=== PATIENT | female | born 1975 | race Caucasian/White ===

== ENCOUNTER 2017-07-20 09:35 | Inpatient (IN) | payer OTHER ==
[~2017-07-20] VITALS: Ht 157.5 cm; Wt 90.4 kg
[2017-07-20] VITALS (13 sets, daily range): BP systolic 95–170; BP diastolic 62–86; PULSE 78–150
[~2017-07-20 09:35] MED LIST: ADENOSINE 6 MG INJ ONE; ATROPINE 1 MG/10 ML SYRINGE ONE; CA CHLORIDE 10% 10 ML SYRINGE ONE; EPINEPHrine 0.1 MG/ML SYG ONE; NA BICARBONATE 8.4% 50 ML SYG ONE
[2017-07-20] MEDS ORDERED: NITROGLYCERIN 2% 1 GM OINT PKT TD STA (09:41)
[2017-07-20] MEDS ORDERED: FUROSEMIDE 40 MG INJ IV STA (09:41)
[2017-07-20 10:34] LABS: ABNORMAL IP MESSAGE 1; HEMATOCRIT 22.9 % (37.0-47.0); HEMOGLOBIN 7.3 g/dl (12.0-16.0); MEAN CORPUSCULAR HEMOGLOBIN 31.7 pg (29.0-33.0); MEAN CORPUSCULAR HGB CONC 31.9 g/dl (32.0-37.0); MEAN CORPUSCULAR VOLUME 99.6 fl (82.0-101.0); MEAN PLATELET VOLUME 9.4 fl (7.4-10.4); NUCLEATED RED BLOOD CELLS% 0.9 /100WBC (0.0-0.0); PLATELET COUNT 284 10^3/UL (140-415); POSITIVE DIFF @See below; RED CELL DISTRIBUTION WIDTH 16.8 % (11.5-14.5); WHITE BLOOD COUNT 11.9 10^3/ul (4.8-10.8)
--- NOTE | 2017-07-20 10:36 | RADRPT ---
PROCEDURE: XR Chest. CLINICAL INDICATION: Chest pain TECHNIQUE: Single frontal view of the chest was obtained COMPARISON: None FINDINGS: No pleural effusion or pneumothorax. No consolidation. Enlarged cardiomediastinal silhouette. Mild interstitial pulmonary edema. No acute osseous abnormality. IMPRESSION: Global cardiomegaly with mild interstitial pulmonary edema. Superimposed infection to be determined clinically. RPTAT: EE Physician Daja Date Time Electronically viewed and signed by Jim Louis Physician on 07/20/2017 10:35 /
[2017-07-20 10:50] LABS: INR 1.73; PROTIME 20.6 Sec (11.9-14.9); PT RATIO 1.6
[2017-07-20 10:51] LABS: PARTIAL THROMBOPLASTIN TIME 36.2 Sec (25.0-35.0)
[2017-07-20 10:52] LABS: CALCIUM 7.1 mg/dl (8.4-10.2); CHLORIDE 101 mmol/L (97-110); SODIUM 132 mmol/L (135-144)
[2017-07-20 11:03] LABS: ANION GAP 32 (8-16); BLOOD UREA NITROGEN 126 mg/dl (7-20)
[2017-07-20 11:04] LABS: TROPONIN-I 0.093 ng/ml (0.00-0.12)
[2017-07-20 11:06] LABS: CARBON DIOXIDE < 5 mmol/L (21-31); CREATININE 14.35 mg/dl (0.44-1.00); GLUCOSE 42 mg/dl (70-220); POTASSIUM 6.2 mmol/L (3.5-5.1)
[2017-07-20] MEDS ORDERED: DEXTROSE 50% 50 ML SYRINGE ONE (11:14)
[2017-07-20] MEDS ORDERED: ROCURONIUM 50 MG INJ IV STA (11:21)
[2017-07-20] MEDS ORDERED: PROPOFOL 100 ML IV STA (11:21)
[2017-07-20] MEDS ORDERED: NA BICARBONATE 8.4% 50 ML SYG IV STA (11:21)
[2017-07-20] MEDS ORDERED: ETOMIDATE 20 MG INJ IV STA (11:21)
[2017-07-20] MEDS ORDERED: CEFEPIME 2GM/50 ML (PMX) 50 ML IVPB STA (11:21)
[2017-07-20] MEDS ORDERED: DEXTROSE 50% 50 ML SYRINGE IV ONE (11:30)
[2017-07-20] MEDS ORDERED: CALCIUM GLUCONATE 10% 1 GM in SOD CHLORIDE 0.9% 100 ML IVPB ONE (11:30)
[2017-07-20] MEDS ORDERED: SODIUM BICARBONATE (IV ADD) 150 MEQ in DEXTROSE 5% 1,000 ML IV SCH (11:30)
[2017-07-20] MEDS ORDERED: VANCOMYCIN 1 GM (PMX) 250 ML IVPB ONE (11:30)
[2017-07-20 11:31] LABS: Allen Test ACCEPTAB; Arterial Base Excess -32.8 mmol/L (-3.0-3); Arterial COHb 0.6 % (0.0-3.0); Arterial Fraction of Oxyhgb 98.2 % (93.0-99.0); Arterial HCO3 1.8 mmol/L (22.0-26.0); Arterial MetHb 0.2 % (0.0-1.5); Arterial Total Hemglobin 7.8 g/dl (12.0-18.0); Blood Gas IEPAP 15/5; MODE MASK - BIPAP
[2017-07-20] MEDS ORDERED: SOD CHLORIDE 0.9% 1,000 ML IV SCH ×2 (11:35→15:51)
[2017-07-20] MEDS ORDERED: NORepinephrine 8MG/250 ML (PMX 250 ML IV STA (11:46)
[2017-07-20] MEDS ORDERED: SOD CHLORIDE 0.9% 1,000 ML IV STA (11:46)
--- NOTE | 2017-07-20 11:49 | RADRPT ---
PROCEDURE: XR Chest. CLINICAL INDICATION: Status post intubation TECHNIQUE: A single AP view of the chest was obtained. COMPARISON: None available FINDINGS: There has been interval intubation. The endotracheal tube tip is at the jerry. Lung volumes are low with compressive changes and crowding of the central pulmonary vascular marking s. No focal airspace opacity, pleural effusion or pneumothorax is seen. The cardiomediastinal silho uette is within normal limits for size. The osseous structures are unremarkable. IMPRESSION: 1. Interval intubation with endotracheal tube tip at the jerry. Retraction by 2 cm is recommended. 2. Low lung volumes with compressive changes. RPTAT: HH .Lakisha Marquez MD, MD Date Time Electronically viewed and signed by .Lakisha Marquez MD, on 07/20/2017 11:48 .G/
[2017-07-20 11:59] LABS: ANISOCYTOSIS 1+ (0-0); BURR CELLS 1+ (0-0); EOSINOPHILS % (M) 8 % (0-7); ERYTHROBLAST% (NRBC) (M) 1 % (0-0); METAMYELOCYTES %M 2 % (0-0); MONOCYTES % (M) 1 % (0-11); MYELOCYTES % (M) 2 % (0-0); PLATELET ESTIMATE NORMAL; POIKILOCYTOSIS 3+ (0-0); POLYCHROMASIA 3+ (0-0)
[2017-07-20] MEDS ORDERED: BISACODYL (EC) 5 MG TAB PO PRN (12:00)
[2017-07-20] MEDS ORDERED: ONDANSETRON 4 MG INJ IV PRN ×2 (12:00→16:00)
[2017-07-20] MEDS ORDERED: DOCUSATE SODIUM 100 MG CAP PO PRN ×2 (12:00→16:00)
[2017-07-20] MEDS ORDERED: MAGNESIUM HYDROXIDE 30ML CUP PO PRN ×2 (12:00→16:00)
[2017-07-20] MEDS ORDERED: ACETAMINOPHEN 650MG/20.3ML CUP PO PRN (12:00)
[2017-07-20] MEDS ORDERED: ACETAMINOPHEN 325 MG TAB PO PRN ×2 (12:00→16:00)
[2017-07-20 12:14] LABS: Arterial COHb 0.8 % (0.0-3.0); Arterial Fraction of Oxyhgb 90.4 % (93.0-99.0); Arterial HCO3 2.7 mmol/L (22.0-26.0); Arterial MetHb 0.2 % (0.0-1.5); Arterial Total Hemglobin 7.6 g/dl (12.0-18.0); MODE VENT - AC
[2017-07-20 12:27] LABS: B-TYPE NATRIURETIC PEPTIDE 50500 PG/ML (0-125)
--- NOTE | 2017-07-20 12:32 | OPR ---
DATE OF OPERATION: PREOPERATIVE DIAGNOSIS: Renal failure. POSTOPERATIVE DIAGNOSIS: Renal failure. PROCEDURE: Right femoral hemodialysis catheter placement. SURGEON: Ajit Bhandari MD ANESTHESIA: Local. CONSENT: Risks, benefits, complications, alternative therapies explained to the patient and the [facility] patricia, consent obtained. OPERATIVE TECHNIQUE: The patient was placed in supine position, prepped and draped in usual sterile fashion, 1% lidocaine was used throughout the operation for local anesthesia. Access was gained in the right common femoral vein. Guidewire was advanced through without any difficulty. Subcutaneou s tissues dilated. A 20 cm dialysis catheter advanced over guidewire, secured to skin using silk saldivar tures. All ports of the catheter were aspirated and injected using saline solution. Patient tolera tootie procedure well. Dictated By: AJIT TOMPKINS/JOSE DE JESUS Conf#: [id number] DID#: [id number]
[2017-07-20 12:49] LABS: BLOOD UREA NITROGEN 120 mg/dl (7-20); CALCIUM 6.7 mg/dl (8.4-10.2); CHLORIDE 102 mmol/L (97-110); GLUCOSE 136 mg/dl (70-220); SODIUM 134 mmol/L (135-144)
[2017-07-20 12:54] LABS: ANION GAP 33 (8-16)
[2017-07-20 12:56] LABS: CARBON DIOXIDE < 5 mmol/L (21-31); CREATININE 13.91 mg/dl (0.44-1.00)
[2017-07-20] MEDS ORDERED: IPRATROPIUM (NEB) 0.5 MG/2.5 ML AMP NEB SCH (13:00)
--- NOTE | 2017-07-20 13:02 | RADRPT ---
PROCEDURE: XR Chest. CLINICAL INDICATION: Central line placement TECHNIQUE: A single AP view of the chest was obtained. COMPARISON: CHEST 07/20/2017; DR CHEST 07/20/2017 FINDINGS: The endotracheal tube tip remains at the jerry. There has been interval placement of a left interna l jugular central venous catheter with tip in the mid SVC. Lung volumes are low. No focal airspace opacification, pleural effusion or pneumothorax is seen. Th e cardiomediastinal silhouette is within normal limits for size. The osseous structures are unremar kable. IMPRESSION: 1. Endotracheal tube tip at the jerry. Retraction by 2 cm is recommended. 2. Left internal jugular central venous catheter with tip in the mid SVC. RPTAT: HH .Lakisha Marquez MD, Date Time Electronically viewed and signed by .Lakisha Marquez MD, MD on 07/20/2017 13:02 .G/
[2017-07-20 13:28] LABS: AADO2 Arterial 135.8 mmHg (7.0-24.0); Allen Test ACCEPTAB; Arterial Base Excess -34.2 mmol/L (-3.0-3); Arterial COHb 0.3 % (0.0-3.0); Arterial Fraction of Oxyhgb 99.1 % (93.0-99.0); Arterial HCO3 1.7 mmol/L (22.0-26.0); Arterial MetHb 0.2 % (0.0-1.5); MODE VENT - AC
--- NOTE | 2017-07-20 13:55 | RADRPT ---
PROCEDURE: CT ABDOMEN AND PELVIS WITHOUT CONTRAST. CLINICAL INDICATION: Possible sepsis. Abdominal pain TECHNIQUE: CT scan of the abdomen and pelvis without contrast was performed on a multidetector hig h-resolution CT scanner. The patient was scanned without intravenous contrast. Coronal and sagittal reformatted images were obtained from the axial source images. Images were reviewed on a high-resol In[employer]asc[employer] PACS workstation. The total exam CTDI equals 21.5 mGy and the total exam DLP equals 1294 mGy-c m. One or more of the following dose reduction techniques were used: Automated exposure control. Adjustment of the mA and/or kV according to patient size. Use of iterative reconstruction technique. DICOM images are available COMPARISON: None FINDINGS: CT abdomen: Bilateral lower lobe air space disease is noted. The heart size is enlarged. No significant pericard ial effusion Hepatic morphology is within normal limits. There is perihepatic fluid. Gallbladder is identified, c ontaining hyperdense material. The spleen is identified, with perisplenic fluid. The pancreas is within normal limits. Both adrenal glands are within normal limits. Both kidneys are in normal anatomic position. No gross renal/ureteric calculi. No evidence of obstru ction or hydronephrosis. The visualized GI tract demonstrate normal caliber loops of small and large bowel. No evidence of obinna wel obstruction. There is thickening of the kessler of the distal stomach and proximal duodenum. There is also thickening of the kessler of the right colon. The unenhanced aorta is unremarkable. There is no significant retroperitoneal lymphadenopathy. There is generalized anasarca. CT pelvis: The bladder is collapsed, containing a Brown catheter. Free fluid is noted within the lower abdomen. The rectosigmoid colon is within limits. Uterus is enlarged and lobulated, containing exophytic mary cified masses. The largest, measures 5.7 x 5.1 cm. The visualized osseous structures appears to within normal limits. IMPRESSION: 1. Bilateral lower lobe air space disease, concerning for pneumonia in the appropriate clinical sett ing. Cardiomegaly. 2. Mild intra-abdominal ascites and generalized anasarca. 3. Thickening of the kessler of the distal stomach and duodenum, concerning for focal enteritis. There is also mild thickening of the kessler of the right colon, concerning for focal colitis. Recommend fo llow-up CT scan with IV and oral contrast. 4. Enlarged uterus, containing exophytic calcified masses, with the largest measuring 5.7 x 5.1 cm. Findings are likely consistent with consistent with a leiomyomatous uterus. 5. Gallbladder, containing hyperdense material, which may represent sludge or stones. Recommend barry elation with ultrasound. 7. No definitive focal fluid collection or free air noted at this time. RPTAT: AAPP Physician Kylah Date Time Electronically viewed and signed by Mariia Forte Physician on 07/20/2017 13:55 LOGAN/
[2017-07-20] MEDS ORDERED: ADENOSINE 4 ML ONE (14:11)
[2017-07-20] MEDS ORDERED: ADENOSINE 6 MG INJ IV ONE (14:30)
[2017-07-20] MEDS ORDERED: ADENOSINE 3 MG/ML SYRINGE IV ONE (14:30)
--- NOTE | 2017-07-20 15:31 | ERD ---
ER Documentation Chief Complaint Chief Complaint sent from home for sob , o2 sat is 97% on RA HPI This is a 41-year-old female who presents from home via EMS. Initially upon arrival the patient describes shortness of breath for at least 2 weeks. She describes worsening shortness of breath over the past 24-48 hours. She describes a history of diabetes but no other past medical history. She denies any drugs or alcohol. No chest pain, no pleuritic pain. She does note the shortness of breath is worse when laying flat. Patient is a very limited historian and no further information is available. ROS All systems reviewed and are negative except as per history of present illness. Allergies Allergies: Coded Allergies: No Known Allergy (Unverified , 07/20/17) PMhx/Soc History of Surgery: Yes (right great toe ambutation ) Hx Miscellaneous Medical Probl: Yes (dm) Hx Alcohol Use: No Hx Substance Use: No Hx Tobacco Use: No Smoking Status: Never smoker FmHx Family History: diabetes Physical Exam Vitals Vital Signs Date Time Temp Pulse Resp B/P Pulse Ox O2 Delivery O2 Flow Rate FiO2 07/20/17 14:00 102 30 165/87 100 BIPAP 07/20/17 13:56 107 30 166/86 100 BIPAP 07/20/17 13:50 150 35 109/87 100 BIPAP 07/20/17 13:47 133 30 121/64 100 BIPAP 07/20/17 13:30 115 16 90/59 100 BIPAP 07/20/17 13:15 76 30 103/82 100 BIPAP 07/20/17 13:00 83 30 127/62 100 BIPAP 07/20/17 12:17 87 30 100 100 07/20/17 12:00 86 25 111/67 100 BIPAP 07/20/17 11:45 79 22 82/60 100 BIPAP 07/20/17 11:30 105 24 80/58 100 BIPAP 07/20/17 10:40 86 23 104/74 100 BIPAP 07/20/17 10:15 Simple Mask 07/20/17 10:14 82 21 161/111 100 BIPAP 07/20/17 10:13 98.6 82 21 149/101 100 07/20/17 10:04 84 100 40 Physical Exam General: Well developed, well nourished, increased work of breathing Head: Normocephalic, atraumatic. Eyes: Pupils equally reactive, EOM intact ENT: Moist mucous membranes Neck: Supple, no lymphadenopathy Respiratory: Increased work of breathing with respiratory distress, rales at the bases bilaterally Cardiovascular: Slight tachycardia, no murmurs, rubs, or gallops Abdominal: Soft, non-tender, non-distended, no peritoneal signs : Deferred MSK: Chronic venous stasis dermatitis with evidence of bilateral lower extremity pitting edema Neurologic: Alert and oriented, moving all extremities, normal speech, no focal weakness, no cerebellar signs Skin: No rash Psych: Normal mood Result Diagram: 07/20/17 1005 07/20/17 1220 Results 24 hrs Laboratory Tests Test 07/20/17 10:05 07/20/17 11:06 07/20/17 11:20 07/20/17 11:21 White Blood Count 11.910^3/ul Red Blood Count 2.3010^6/ul Hemoglobin 7.3g/dl Hematocrit 22.9% Mean Corpuscular Volume 99.6fl Mean Corpuscular Hemoglobin 31.7pg Mean Corpuscular Hemoglobin Concent 31.9g/dl Red Cell Distribution Width 16.8% Platelet Count 75231^3/UL Mean Platelet Volume 9.4fl Neutrophils % % Segmented Neutrophils % (Manual) 74% Band Neutrophils % (Manual) 7% Lymphocytes % % Lymphocytes % (Manual) 6% Monocytes % % Monocytes % (Manual) 1% Eosinophils % % Eosinophils % (Manual) 8% Basophils % % Metamyelocytes % (manual) 2% Myelocytes % (Manual) 2% Nucleated Red Blood Cells % 1% Neutrophils # 10^3/ul Neutrophils # (Manual) 8.910^3/ul Band Neutrophils # 0.810^3/ul Absolute Lymphocytes (Manual) 0.710^3/ul Lymphocytes # 10^3/ul Monocytes # 10^3/ul Absolute Monocytes (Manual) 0.110^3/ul Eosinophils # 10^3/ul Basophils # 10^3/ul Metamyelocytes # 0.210^3/ul Myelocytes # 0.210^3/ul Nucleated Red Blood Cells # 10^3/ul Platelet Estimate NORMAL Polychromasia 3+ Poikilocytosis 3+ Anisocytosis 1+ Macrocytosis 1+ Prothrombin Time 20.6Sec Prothrombin Time Ratio 1.6 INR International Normalized Ratio 1.73 Activated Partial Thromboplast Time 36.2Sec Sodium Level 132mmol/L Potassium Level 6.2mmol/L Chloride Level 101mmol/L Carbon Dioxide Level < 5mmol/L Anion Gap 32 Blood Urea Nitrogen 126mg/dl Creatinine 14.35mg/dl Glucose Level 42mg/dl Calcium Level 7.1mg/dl Troponin I 0.093ng/ml B-Type Natriuretic Peptide 45143FF/ML Serum HCG, Qualitative NEGATIVE Blood Gas Specimen Source Blood arterial Blood arterial Arterial Blood Date Drawn 07/20/2017 11:10:47 AM 07/20/2017 11:50:20 AM Arterial Blood pH (Temp corrected) 6.665 6.658 Arterial Blood pCO2 (Temp correct) 16.1mmhg 24.8mmhg Arterial Blood pO2 (Temp corrected) 271.1mmHG 103.6mmHG Arterial Blood HCO3 1.8mmol/L 2.7mmol/L Arterial Blood Base Excess -32.8mmol/L -32.0mmol/L Arterial Blood Oxygen Saturation 99.0mmHG 91.3mmHG Tommy Test ACCEPTAB N/A Arterial Blood Gas Puncture Site Right Radial OTHER Arterial Blood Carboxyhemoglobin 0.6% 0.8% Arterial Blood Methemoglobin 0.2% 0.2% Oxyhemoglobin Percent 98.2% 90.4% Total Hemoglobin 7.8g/dl 7.6g/dl Blood Gas Temperature 37.0C 37.0C Blood Gas Respiration Rate 14.0 28.0 Blood Gas Actual Respiration Rate 24 29 Blood Gas Modality MASK - BIPAP VENT - AC FiO2 40.0% 100.0% Blood Gas IPAP/EPAP Ratio 15/5 Blood Gas Critical Value Read Back DR VERNON JUNIOR Blood Gas Notified Whom MD DELVALLE Blood Gas Notified Time 07/20/2017 11:31:31 AM 07/20/2017 12:00:12 PM Bedside Glucose 236mg/dL Blood Gas Tidal Volume 500.0mL Blood Gas Low PEEP Setting 5.0cmH2O Test 07/20/17 12:20 07/20/17 12:40 Sodium Level 134mmol/L Potassium Level 6.0mmol/L Chloride Level 102mmol/L Carbon Dioxide Level < 5mmol/L Anion Gap 33 Blood Urea Nitrogen 120mg/dl Creatinine 13.91mg/dl Glucose Level 136mg/dl Lactic Acid Level 10.0mmol/L Calcium Level 6.7mg/dl Blood Gas Specimen Source Blood arterial Arterial Blood Date Drawn 07/20/2017 1:20:17 PM Arterial Blood pH (Temp corrected) 6.624 Arterial Blood pCO2 (Temp correct) 16.6mmhg Arterial Blood pO2 (Temp corrected) 560.6mmHG Arterial Blood HCO3 1.7mmol/L Arterial Blood Base Excess -34.2mmol/L Arterial Blood Oxygen Saturation 99.6mmHG Tommy Test ACCEPTAB Arterial Blood Gas Puncture Site Right Radial Arterial Blood Carboxyhemoglobin 0.3% Arterial Blood Methemoglobin 0.2% Blood Gas A-a O2 Differential 135.8mmHg Oxyhemoglobin Percent 99.1% Total Hemoglobin 9.0g/dl Blood Gas Temperature 37.0C Blood Gas Respiration Rate 30.0 Blood Gas Actual Respiration Rate 30 Blood Gas Modality VENT - AC FiO2 100.0% Blood Gas Tidal Volume 500.0mL Blood Gas Low PEEP Setting 5.0cmH2O Blood Gas Critical Value Read Back DR VERNON Tejada Blood Gas Notified Whom JLD Blood Gas Notified Time 07/20/2017 1:28:25 PM Current Medications Medications (Trade) Dose Ordered Sig/Tina Route PRN Reason Start Time Stop Time Status Last Admin Dose Admin Nitroglycerin (Nitroglycerin 2% Oint) 1 inch ONCE STAT TD 07/20/17 09:41 07/20/17 09:46 DC 07/20/17 10:08 Furosemide (Lasix) 40 mg ONCE STAT IV 07/20/17 09:41 07/20/17 09:46 DC 07/20/17 10:09 Dextrose (D50w Syringe) 50 ml ONCE ONCE IV 07/20/17 11:30 07/20/17 11:31 DC 07/20/17 11:29 Dextrose 50 ml 50 ml STK-MED ONCE .ROUTE 07/20/17 11:14 07/20/17 11:15 DC Cefepime HCl 50 ml @ 100 mls/hr ONCE STAT IVPB 07/20/17 11:21 07/20/17 11:50 DC Vancomycin HCl (Vancocin) 250 ml @ 125 mls/hr ONCE ONCE IVPB 07/20/17 11:30 07/20/17 13:29 DC Sodium Bicarbonate 50 ml 50 ml ONCE STAT IV 07/20/17 11:21 07/20/17 11:25 DC 12/7/17 11:36 Calcium Gluconate/ Sodium Chloride (Ca Gluc/NS) 110 ml @ 110 mls/hr ONCE ONCE IVPB 07/20/17 11:30 07/20/17 12:29 DC Rocuronium [place] (Zemuron) 100 mg ONCE STAT IV 07/20/17 11:21 07/20/17 11:25 DC 07/20/17 11:59 Etomidate 20 mg 20 mg ONCE STAT IV 07/20/17 11:21 07/20/17 11:27 DC 07/20/17 11:58 Propofol 100 ml @ 2.318 mls/ hr ONCE STAT IV 07/20/17 11:21 07/22/17 06:29 Sodium Bicarbonate 150 meq/Dextrose 1,150 ml @ 250 mls/hr Q4H36M IV 07/20/17 11:30 07/20/17 16:05 Sodium Chloride (NS) 1,000 ml @ 50 mls/hr Q20H IV 07/20/17 11:35 Ondansetron HCl (Zofran Inj) 4 mg Q6H PRN IV NAUSEA AND/OR VOMITING 07/20/17 12:00 Albuterol/ Ipratropium (Duoneb) 3 ml Q4H RESP THERAPY NEB 07/20/17 13:00 Ipratropium [place] (Atrovent 0.02% (Neb)) 0.5 mg Q4H RESP THERAPY NEB 07/20/17 13:00 Acetaminophen (Tylenol Liquid) 650 mg Q6H PRN PO PAIN LEVEL 1-3 OR FEVER 07/20/17 12:00 Acetaminophen (Tylenol Tab) 650 mg Q6H PRN PO PAIN LEVEL 1-3 OR FEVER 07/20/17 12:00 Docusate Sodium (Colace) 100 mg Q12H PRN PO CONSTIPATION 07/20/17 12:00 Magnesium Hydroxide (Milk Of Mag) 30 ml DAILY PRN PO CONSTIPATION 07/20/17 12:00 Bisacodyl (Dulcolax) 5 mg DAILY PRN PO CONSTIPATION 07/20/17 12:00 Pantoprazole 40 mg 40 mg DAILY@06 IV 07/21/17 06:00 Sodium Chloride 1,000 ml @ 1,000 mls/hr Q1H STAT IV 07/20/17 11:46 07/20/17 12:45 DC 07/20/17 12:06 Norepinephrine 250 ml @ 7.5 mls/hr ONCE STAT IV 07/20/17 11:46 07/21/17 21:05 07/20/17 12:05 Adenosine (Adenosine) 4 ml @ ud STK-MED ONCE .ROUTE 07/20/17 14:11 07/20/17 14:12 DC Adenosine 6 mg ONCE ONCE IV 07/20/17 14:30 07/20/17 14:31 DC 07/20/17 14:15 Adenosine (Adenosine) 12 mg ONCE ONCE IV 07/20/17 14:30 07/20/17 14:31 DC Procedures/MDM EKG, MONITORS, & DIAGNOSTIC IMAGING: EKG #1 EKG: I reviewed and interpreted a 12-lead EKG. Rhythm: Normal sinus rhythm with frequent PACs Ectopy: None Intervals: No abnormalities ST segments: No elevations or depressions T waves: No contiguous inversions EKG #2 at 1410 EKG: I reviewed and interpreted a 12-lead EKG. Rhythm: supraventricular tachycardia Ectopy: None Intervals: No abnormalities ST segments: No elevations or depressions T waves: No contiguous inversions EKG #3 at 1415 EKG: I reviewed and interpreted a 12-lead EKG. Rhythm: Normal sinus rhythm Ectopy: None Intervals: No abnormalities ST segments: No elevations or depressions T waves: No contiguous inversions CXR1 IMPRESSION: Global cardiomegaly with mild interstitial pulmonary edema. Superimposed infection to be determined clinically. RPTAT: CXR 2 IMPRESSION: 1. Endotracheal tube tip at the jerry. Retraction by 2 cm is recommended. 2. Left internal jugular central venous catheter with tip in the mid SVC. RPTAT: CXR 3 IMPRESSION: 1. Interval intubation with endotracheal tube tip at the jerry. Retraction by 2 cm is recommended. 2. Low lung volumes with compressive changes. *TLC in good position *ETT moved back to 22 at the lip after this film RPTAT: CTAP IMPRESSION: 1. Bilateral lower lobe air space disease, concerning for pneumonia in the appropriate clinical setting. Cardiomegaly. 2. Mild intra-abdominal ascites and generalized anasarca. 3. Thickening of the kessler of the distal stomach and duodenum, concerning for focal enteritis. There is also mild thickening of the kessler of the right colon, concerning for focal colitis. Recommend follow-up CT scan with IV and oral contrast. 4. Enlarged uterus, containing exophytic calcified masses, with the largest measuring 5.7 x 5.1 cm. Findings are likely consistent with consistent with a leiomyomatous uterus. 5. Gallbladder, containing hyperdense material, which may represent sludge or stones. Recommend correlation with ultrasound. 7. No definitive focal fluid collection or free air noted at this time. RPTAT: AAPP PROCEDURES: Intubation Note: Indication: Airway protection Consent: This was an emergent situation, implied consent was observed RSI Medications: Etomidate 20 mg, rocuronium 100 mg Tube size: 7.5 Secured at: 23 at the lip Procedure: Endotracheal intubation was performed. The patient was preoxygenated with supplemental oxygen, the room was set up with emergent airway equipment including [id number], suction, adjunct airways. Direct visualization of the cords was performed with direct laryngoscopy using a 4.0 Mac blade, insertion of the endotracheal tube through the cords was visualized by the foundry operator. Bilateral breath sounds were auscultated, color change was observed. The tube was then secured in a postintubation chest x-ray was ordered. The patient tolerated the procedure well there were no complications. Central Line Note: Consent: I had a discussion with the patient's sisters, next of kin regarding the procedure and discussed risks, benefits, alternatives. They have given verbal informed consent and a document was signed and placed in the chart. Indication: Critically ill patient requiring specialized vascular access for fluid or pressor management Location: Left IJ Procedure: Sterile procedure was observed throughout insertion of the central line. The insertion site was prepped with sterile solution. Ultrasound-guided identification of the vein was performed. Insertion of a needle into the vein was obtained with return of dark, slightly pulsatile blood. There is some concern that this may be arterial however the ultrasound very clearly showed the needle within the internal jugular vein. A blood gas was rapidly sent but showed PaO2 of 100. This was inconsistent. It was unclear if this was truly venous versus arterial, therefore the right IJ was aborted. I transitioned to the left internal jugular vein. The needle was inserted again was still slightly pulsatile dark venous blood. I believe the pulsation was likely secondary to the patient's current pressor response and proximity to the arterial system. Ultrasound clearly confirmed that the needle was within the venous system. The wire was then threaded through the needle without complication. The wire was then identified within the vein using ultrasound. A small skin incision was made, the needle was removed intact, dilation of the vein was performed and insertion of a triple lumen catheter was completed. The catheter was then sutured to the skin. All 3 ports elton back and flushed without difficulty. A sterile dressing was applied. The patient tolerated the procedure well there were no complications. Emergency Bedside Ultrasound: The patient was verbally consented prior to procedure and understands the risks , benefits, and alternatives. The patient is agreeable to procedure and has given verbal consent. Indication: Central line Probe Type: Linear Findings: Dynamic ultrasound utilizing compressive technique with both linear and horizontal views, additional images showing wire within the venous system were obtained. The images were saved along with patient information on a paper chart to be scanned into EMR. The patient tolerated the procedure well and there were no complications. A post-line chest x-ray was ordered as indicated. LAB INTERPRETATION: Leukocytosis, anemia, hyperkalemia, hyponatremia, metabolic acidosis, severe with lactate of 10. Acute renal failure with BUN of 126 and creatinine of 14.35. Hypoglycemia. Negative troponin. MEDICAL DECISION MAKING: The patient presents with shortness of breath for approximately 2 weeks. Initially she presented with signs and symptoms consistent with new onset heart failure. She had lower extremity edema and and increased work of breathing. She was immediately started on positive pressure ventilation. There was some significant delay with blood work. The patient had clinical decompensation during this timeframe and I would recommend intubation. I felt this was consistent with volume overload. However her laboratory test results and showed evidence of uremia and acute renal failure. This is more consistent with volume overload in the setting of new onset renal failure. The patient's family were readily available and consented to procedures including intubation, central line, Sina catheter. ER COURSE: See as above. The patient was rapidly started on BiPAP, she had clinical decompensation. The patient was initially given Lasix and nitroglycerin without significant response. The patient had impending respiratory failure and was intubated. Her laboratory testing shows evidence of uremia, acute renal failure, metabolic acidosis consistent with acute renal failure requiring emergent dialysis. Emergent phone call to Dr. Carranza who is readily available and at the bedside was placed to arrange for dialysis. Emergent phone call to Dr. Bhandari to place dialysis catheter was made and he was readily available. When the patient was intubated she was maintained with increased respiratory rate to make up for the patient's significant metabolic acidosis . The patient had significant metabolic acidosis requiring bicarbonate administration as well as bicarb drip initiation. The patient had slight hyperkalemia and was given calcium. The patient is not a candidate for Kayexalate. I did not provide insulin because the patient was hypo-glycemic and just received dextrose. Emergent dialysis is necessary, the patient already had consultation. The patient was intubated. A triple-lumen catheter was inserted, please see documentation above. The patient had hypotension and required gentle fluids despite her volume overload and pressors. The dialysis catheter was placed and the patient was attempting to be started on dialysis. At this point the patient had a cardiac arrest. The patient had PEA and chest compressions were initiated. ACLS was initiated per protocol. The patient was given several amps of bicarb and calcium. Epinephrine was provided. The patient had several rounds of chest compressions with return of spontaneous circulation. Please see nursing documentation. The patient had stabilized and dialysis was initiated. The patient had a run of SVT during this timeframe. She was given 6 mg of adenosine and broke to sinus rhythm. The patient required initiation of pressors as documented above. The patient is critically ill with significant risk for morbidity and mortality. The family was informed of this. Empiric antibiotics were provided and blood cultures were taken. CT of the abdomen and pelvis shows nonspecific changes. DISPOSITION PLAN: Intensive care unit CONSULTATION: Accepting care team and consultations: I discussed the current laboratory data, diagnostic imaging and emergency care provided. Admitting team: Dr. Helms Admitting team indication: Insurance directed Consulting services: Nephrology Dr. Carranza, vascular surgery Dr. Bhandari Critical Care Note: Total time: 63 minutes Indication/Organ System Threat: Acute renal failure, metabolic acidosis, cardiac arrest I spent the above amount of critical care time with the patient, not including billable procedures. This included chart review, consultations, repeat bedside evaluations, and titration of appropriate medications to prevent cardiopulmonary or respiratory collapse. Departure Diagnosis: Primary Impression: Acute respiratory failure Respiratory failure complication: unspecified whether with hypoxia or hypercapnia Qualified Code: J96.00 - Acute respiratory failure, unspecified whether with hypoxia or hypercapnia Additional Impressions: Acute renal failure Acute renal failure type: unspecified Qualified Code: N17.9 - Acute renal failure, unspecified acute renal failure type Uremia Metabolic acidosis Lactic acidosis Cardiac arrest Signs of return of spontaneous circulation Hypoglycemia Hyperkalemia Condition: Critical MARC JUNIOR MD Jul 20, 2017 15:29
[2017-07-20] MEDS ORDERED: morphine 2 MG INJ IV PRN (16:00)
[2017-07-20] MEDS ORDERED: HYDROCODONE/APAP (5/325) TAB PO PRN (16:00)
[2017-07-20] MEDS ORDERED: NITROGLYCERIN (SL) 0.4 MG TAB SL PRN (16:00)
[2017-07-20] MEDS ORDERED: VANCOMYCIN IV PER PHARMACY XX SCH (16:00)
[2017-07-20] MEDS ORDERED: NORepinephrine 8MG/250 ML (PMX 250 ML IV SCH (16:00)
[2017-07-20] MEDS ORDERED: NA PHOSPHATE/BIPHOS 133 ML ENEMA PR PRN (16:00)
[2017-07-20] MEDS ORDERED: NACL 0.9% 3 ML SYG IV SCH (16:00)
[2017-07-20] MEDS ORDERED: CEFEPIME 2GM/50 ML (PMX) 50 ML IVPB SCH (16:00)
[2017-07-20] MEDS ORDERED: LIDOCAINE 1% (MPF) 5 ML VIAL SC ONE ×2 (16:00)
[2017-07-20] MEDS ORDERED: LORAZEPAM 2 MG INJ IV PRN (16:00)
[2017-07-20] MEDS ORDERED: ALBUTEROL/IPRATROPIUM (NEB) 3 ML AMP HHN PRN (16:00)
[2017-07-20 16:27] LABS: HAAIG REFLEX REFLEX FILED
[2017-07-20 16:40] LABS: IRON 101 ug/dl (35-150)
[2017-07-20 16:41] LABS: PHOSPHORUS 12.2 mg/dl (2.5-4.9)
[2017-07-20 16:42] LABS: ETHANOL < 10.0 mg/dl
[2017-07-20 16:49] LABS: TOTAL IRON BINDING CAPACITY 312 ug/dl (241-421)
--- NOTE | 2017-07-20 16:51 | CONS ---
Date/Time of Note Date/Time of Note DATE: 07/20/17 TIME: 16:49 Assessment/Plan Assessment/Plan Chief Complaint/Hosp Course ALEXIA W CKD ANASARCA HYPERKALEMIA ANEMIA VDRF HYPERKALEMIA MET ACIDOSIS PLAN PER ORDER HD Problems: Consultation Date/Type/Reason Admit Date/Time Initial Consult Date [id number] CONSULT 24 HR Interval Summary Subjective hx not possible: pt non-verbal Exam/Review of Systems Vital Signs Vitals Vital Signs Date Time Temp Pulse Resp B/P Pulse Ox O2 Delivery O2 Flow Rate FiO2 07/20/17 16:34 87 32 100 50 07/20/17 16:30 115/56 Mechanical Ventilator 15.0 07/20/17 10:13 98.6 Exam ENMT: nl external ears & nose Neck: supple Respiratory: clear to auscultation Cardiovascular: regular rate and rhythm Gastrointestinal: bowel sounds (+), soft Extremities: edema (++) Neurological: lethargic Results Result Diagram: 07/20/17 1005 07/20/17 1220 Results 24 hrs Laboratory Tests Test 07/20/17 10:05 07/20/17 11:06 07/20/17 11:20 07/20/17 11:21 White Blood Count 11.9 H Red Blood Count 2.30 L Hemoglobin 7.3 L Hematocrit 22.9 L Mean Corpuscular Volume 99.6 Mean Corpuscular Hemoglobin 31.7 Mean Corpuscular Hemoglobin Concent 31.9 L Red Cell Distribution Width 16.8 H Platelet Count 284 Mean Platelet Volume 9.4 Neutrophils % Segmented Neutrophils % (Manual) 74 Band Neutrophils % (Manual) 7 H Lymphocytes % Lymphocytes % (Manual) 6 L Monocytes % Monocytes % (Manual) 1 Eosinophils % Eosinophils % (Manual) 8 H Basophils % Metamyelocytes % (manual) 2 H Myelocytes % (Manual) 2 H Nucleated Red Blood Cells % 1 H Neutrophils # Neutrophils # (Manual) 8.9 H Band Neutrophils # 0.8 H Absolute Lymphocytes (Manual) 0.7 L Lymphocytes # Monocytes # Absolute Monocytes (Manual) 0.1 L Eosinophils # Basophils # Metamyelocytes # 0.2 H Myelocytes # 0.2 H Nucleated Red Blood Cells # Platelet Estimate NORMAL Polychromasia 3+ Poikilocytosis 3+ Anisocytosis 1+ Macrocytosis 1+ Prothrombin Time 20.6 H Prothrombin Time Ratio 1.6 INR International Normalized Ratio 1.73 Activated Partial Thromboplast Time 36.2 H Sodium Level 132 L Potassium Level 6.2 *H Chloride Level 101 Carbon Dioxide Level < 5 *L Anion Gap 32 H Blood Urea Nitrogen 126 H Creatinine 14.35 H Glucose Level 42 *L Calcium Level 7.1 L Troponin I 0.093 B-Type Natriuretic Peptide 29267 H Serum HCG, Qualitative NEGATIVE Blood Gas Specimen Source Blood arterial Blood arterial Arterial Blood Date Drawn 07/20/2017 11:10:47 AM 07/20/2017 11:50:20 AM Arterial Blood pH (Temp corrected) 6.665 *L 6.658 *L Arterial Blood pCO2 (Temp correct) 16.1 L 24.8 L Arterial Blood pO2 (Temp corrected) 271.1 H 103.6 H Arterial Blood HCO3 1.8 *L 2.7 *L Arterial Blood Base Excess -32.8 L -32.0 L Arterial Blood Oxygen Saturation 99.0 H 91.3 L Tommy Test ACCEPTAB N/A Arterial Blood Gas Puncture Site Right Radial OTHER Arterial Blood Carboxyhemoglobin 0.6 0.8 Arterial Blood Methemoglobin 0.2 0.2 Oxyhemoglobin Percent 98.2 90.4 L Total Hemoglobin 7.8 L 7.6 L Blood Gas Temperature 37.0 37.0 Blood Gas Respiration Rate 14.0 28.0 Blood Gas Actual Respiration Rate 24 29 Blood Gas Modality MASK - BIPAP VENT - AC FiO2 40.0 100.0 Blood Gas IPAP/EPAP Ratio 15/5 Blood Gas Critical Value Read Back DR VERNON JUNIOR Blood Gas Notified Whom MD DELVALLE Blood Gas Notified Time 07/20/2017 11:31:31 AM 07/20/2017 12:00:12 PM Bedside Glucose 236 H Blood Gas Tidal Volume 500.0 Blood Gas Low PEEP Setting 5.0 Test 07/20/17 12:20 07/20/17 12:40 07/20/17 15:20 Sodium Level 134 L Potassium Level 6.0 H Chloride Level 102 Carbon Dioxide Level < 5 *L Anion Gap 33 H Blood Urea Nitrogen 120 H Creatinine 13.91 H Glucose Level 136 # Lactic Acid Level 10.0 *H 8.6 *H Calcium Level 6.7 L Blood Gas Specimen Source Blood arterial Arterial Blood Date Drawn 07/20/2017 1:20:17 PM Arterial Blood pH (Temp corrected) 6.624 *L Arterial Blood pCO2 (Temp correct) 16.6 L Arterial Blood pO2 (Temp corrected) 560.6 H Arterial Blood HCO3 1.7 *L Arterial Blood Base Excess -34.2 L Arterial Blood Oxygen Saturation 99.6 H Tommy Test ACCEPTAB Arterial Blood Gas Puncture Site Right Radial Arterial Blood Carboxyhemoglobin 0.3 Arterial Blood Methemoglobin 0.2 Blood Gas A-a O2 Differential 135.8 H Oxyhemoglobin Percent 99.1 H Total Hemoglobin 9.0 L Blood Gas Temperature 37.0 Blood Gas Respiration Rate 30.0 Blood Gas Actual Respiration Rate 30 Blood Gas Modality VENT - AC FiO2 100.0 Blood Gas Tidal Volume 500.0 Blood Gas Low PEEP Setting 5.0 Blood Gas Critical Value Read Back DR VERNON Tejada Blood Gas Notified Whom LOGAND Blood Gas Notified Time 07/20/2017 1:28:25 PM Phosphorus Level 12.2 H Iron Level 101 Total Iron Binding Capacity Pending Percent Iron Saturation Pending Lipase 432 H Ethyl Alcohol Level < 10.0 Hepatitis B Surface Antigen Pending Hepatitis B Core Total Antibody Pending Hepatitis C Antibody Pending Medications Medications Current Medications Ondansetron HCl (Zofran Inj) 4 mg Q6H PRN IV NAUSEA AND/OR VOMITING; Start 07/20/17 at 12:00 Acetaminophen (Tylenol Liquid) 650 mg Q6H PRN PO PAIN LEVEL 1-3 OR FEVER; Start 07/20/17 at 12:00 Acetaminophen (Tylenol Tab) 650 mg Q6H PRN PO PAIN LEVEL 1-3 OR FEVER; Start 07/20/17 at 12:00 Docusate Sodium (Colace) 100 mg Q12H PRN PO CONSTIPATION; Start 07/20/17 at 12: 00 Magnesium Hydroxide (Milk Of Mag) 30 ml DAILY PRN PO CONSTIPATION; Start at 12:00 Bisacodyl (Dulcolax) 5 mg DAILY PRN PO CONSTIPATION; Start 07/20/17 at 12:00 Ondansetron HCl (Zofran Inj) 4 mg Q6H PRN IV NAUSEA AND/OR VOMITING; Start 07/20/17 at 16:00; Status UNV Acetaminophen (Tylenol Tab) 650 mg Q6H PRN PO PAIN LEVEL 1-3 OR FEVER; Start 07/20/17 at 16:00; Status UNV Acetaminophen/ Hydrocodone Bitart ([place] (5/325)) 1 tab Q6H PRN PO MODERATE PAIN LEVEL 4-6; Start 07/20/17 at 16:00; Status UNV Morphine Sulfate (morphine) 2 mg Q4H PRN IV SEVERE PAIN LEVEL 7-10; Start 07/20 at 16:00; Status UNV Docusate Sodium (Colace) 100 mg Q12H PRN PO CONSTIPATION; Start 07/20/17 at 16: 00; Status UNV Magnesium Hydroxide (Milk Of Mag) 30 ml DAILY PRN PO CONSTIPATION; Start at 16:00; Status UNV Sodium Biphosphate/ Sodium Phosphate (Fleet Enema) 133 ml DAILY PRN W[place] CONSTIPATION; Start 07/20/17 at 16:00; Status UNV Famotidine (Pepcid Iv) 20 mg Q12 IV ; Start 07/20/17 at 21:00; Status UNV Lorazepam (Ativan) 0.5 mg Q6H PRN IV ANXIETY; Start 07/20/17 at 16:00; Status UNV Nitroglycerin 1 tab 1 tab Q5M PRN SL ANGINA; Start 07/20/17 at 16:00; Status UNV Cefepime HCl 50 ml @ 100 mls/hr Q8 IVPB ; Start 07/20/17 at 16:00; Status UNV Sodium Bicarbonate/ Sodium Chloride (Na Bicarb/NS) 1,150 ml @ 60 mls/hr [id number] IV ; Start 07/20/17 at 15:58; Status UNV Lidocaine (Xylocaine 1% (Mpf)) 5 ml ONCE ONCE SC ; Start 07/20/17 at 16:00; Stop 07/20/17 at 16:01; Status UNV Lidocaine 5 ml 5 ml ONCE ONCE SC ; Start 07/20/17 at 16:00; Stop 07/20/17 at 16 :01; Status UNV Ciprofloxacin/ Dextrose 200 ml @ 200 mls/hr Q12 IVPB ; Start 07/20/17 at 21:00 ; Status UNV Metronidazole (Flagyl 500 Mg (Pmx)) 100 ml @ 100 mls/hr Q6 IVPB ; Start at 18:00; Status UNV Miscellaneous Information (* Miscellaneous Pharmacy Order) Discontinue current oral sulfonylur... ONCE ONCE XX ; Start 07/20/17 at 17:00; Stop 07/20/17 at 17: 01; Status UNV Diagnostic Test (Pha) (Accu-Chek) 1 XX ; Start 07/21/17 at 02:00; Status UNV Miscellaneous Information (* Miscellaneous Pharmacy Order) HYPOGLYCEMIA PROTOCOL w... ONCE ONCE XX ; Start 07/20/17 at 17:00; Stop 07/20/17 at 17:01; Status UNV Insulin Aspart (Novolog Insulin Pen) NOVOLOG *MILD* ALGORI... Q4 SC ; Start 07/20/17 at 17:00; Status UNV Miscellaneous Information (* Miscellaneous Pharmacy Order) Discontinue all previ... ONCE ONCE XX ; Start 07/20/17 at 17:00; Stop 07/20/17 at 17:01; Status UNV JASVIR BYRD MD Jul 20, 2017 16:51
[2017-07-20 17:05] LABS: CK-MB 6.96 ng/ml (0.0-2.4)
--- NOTE | 2017-07-20 17:08 | RADRPT ---
PROCEDURE: US bilateral lower extremity veins. CLINICAL INDICATION: Bilateral leg pain and swelling. TECHNIQUE: Multiple longitudinal and transverse images of the bilateral lower extremity veins were obtained with aplacios scale and color Doppler imaging. The common femoral vein, femoral vein, and popl iteal vein were evaluated. 2D grayscale measurements with compression sonography, color Doppler, and pulsed Doppler with augmentation. COMPARISON: No prior studies are available for comparison. FINDINGS: The bilateral common femoral, femoral and popliteal veins are normally compressible throughout. Col or flow demonstrates normal filling of the vessels. Normal waveforms are visualized and there is no rmal response to augmentation. IMPRESSION: 1. No evidence of deep vein thrombosis involving either lower extremity. RPTAT: QQ .Vincent Young MD, MD Date Time Electronically viewed and signed by .Vincent Young MD, on 07/20/2017 17:07 .R/
--- NOTE | 2017-07-20 17:09 | RADRPT ---
PROCEDURE: US right upper quadrant CLINICAL INDICATION: Abdominal pain. Abnormal CT showing gallbladder sludge TECHNIQUE: Multiple real-time images were acquired of the patient's right upper abdomen utilizing a high resolution transducer. COMPARISON: CT abdomen without contrast 07/20/2017 FINDINGS: Liver: Normal in size, contour and echogenicity. Normal directional blood flow is seen within the p atent main portal vein. The maximum dimension estimated at 14.9 cm. Perihepatic ascites is present . Gallbladder: Small amount of echogenic material consistent with sludge in the gallbladder neck. The re is no evidence of cholelithiasis. The gallbladder wall is mildly thickened at 3.6 mm. Note is mad e of perihepatic and pericholecystic ascites as seen on the CT. No sonographic García's sign is rep orted. Common bile duct: Normal; 3.9 mm. There is no evidence for choledocholithiasis. Right Kidney: Atrophic; maximum length measured at approximately 7.9 cm. Increased cortical echogen icity compatible with medical renal disease. No evidence of hydronephrosis or mass Pancreas: Obscured by bowel gas. RPTAT:HJJR IMPRESSION: 1. Small amount of gallbladder sludge within the gallbladder neck corresponds to the CT findings wit h minimal gallbladder wall thickening. 2. Small amount of perihepatic ascites. 3. Atrophic echogenic right kidney likely relates to medical renal disease. Physician Jimbo Date Time Electronically viewed and signed by Physician Jimbo on 07/20/2017 17:08 /
[2017-07-20 17:13] LABS: TROPONIN-I 0.175 ng/ml (0.00-0.12)
[2017-07-20 17:31] LABS: HEPATITIS B CORE ANTIBODY NEGATIVE (NEGATIVE)
--- NOTE | 2017-07-20 17:45 | HP ---
DATE OF ADMISSION: 07/20/2017 CHIEF COMPLAINT: This is a 41-year-old female, brought in for shortness of breath. 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 She was at work earlier today and had shortness of breath and EMS was called and the patient was brought to the ER. Most of the information is obtained from the ER documentation, in speaking with the ER staff and also speaking with the mom as the patient is presently intubated. History received was that when the patient arrived to the ER, she had denied chest pain. No drugs or alcohol use, but was complaining of shortness of breath, worse when laying flat. Full review of systems cannot be obtained at this time and that was the extent that could be obtained. Apparently, in the ER doctor became concerned about her SOB, and initiated BiPAP. Eventually the patient went into respiratory distress and had to be intubated. The patient was taken for CT abdomen and pelvis and when she came back from the CT scan, she went into cardiac arrest at 1342. She was revived at 1347 and shortly afterwards at 1414 went into SVT, which converted after getting adenosine in the ER. Afterwards, her labs came back and it was determined that the patient had very elevated BUN and creatinine levels as well as elevated lactic acid and needed emergent dialysis, so the vascular surgeon came and put a right femoral hemodialysis catheter and the patient underwent dialysis. She was also found with very elevated lactic acid levels of [address] abdomen pelvis results did show significant findings including possible pneumonia, ascites, and anasarca, enteritis and colitis, leiomyomatous uterus, and gallbladder sludge. The patient also had ABG performed that showed pH of 6.66, pCO2 of 16, PaO2 of 271, and a bicarb of 1.8 and she did receive calcium gluconate, sodium bicarb, and D50, as her potassium is also found to be 6.0. The patient is presently intubated on pressor support, although able to blink her eyes and surprisingly will follow basic commands at this point. PAST MEDICAL HISTORY: As stated above. ALLERGIES: NO KNOWN DRUG ALLERGIES. HOME MEDICATIONS: Unknown at this time. Mother is going to bring those in later. PAST SURGICAL HISTORY: She had right 1st and 2nd digit right foot toe amputation in the past. SOCIAL HISTORY: Negative for smoking, drinking, or IV drug abuse. PHYSICAL EXAMINATION: VITAL SIGNS: Today, T-max 98.6, pulse 76 to 133, respirations 16 to 30, blood pressure 90 to 165 systolic over 59 to 87 diastolic, satting at 100 percent on mechanical ventilation. GENERAL: Patient lying in bed, intubated, but surprisingly, does open eyes and follows commands when blinking her eyes. Slightly obese. NECK: Supple. HEENT: Pupils equal, round, react to light. Extraocular muscles intact. LUNGS: Slightly distant breath sounds bilaterally. CARDIOVASCULAR: S1, S2 heard. No rubs, gallops. ABDOMEN: Soft, nontender, nondistended. Normal bowel sounds. No rebound or guarding. MUSCULOSKELETAL: 1+ pitting edema bilateral lower extremities to the mid calves. Slightly swollen. NEUROLOGIC: Unable to fully assess because patient is intubated at this time. LABORATORY DATA: We mentioned her ABG results. WBC 11.9, hemoglobin 7.3, hematocrit 22.9, platelets of 284. Sodium 134, potassium 6.0, chloride 102, CO2 5, BUN 120, creatinine 13.91. Glucose 136, lactic acid initial 10.0, repeat is 8.6. Hepatitis panel is pending. We mentioned her CT abdomen pelvis results. Her chest x-ray showed no focal airspace opacity, pleural effusions or pneumothorax. ASSESSMENT AND PLAN: A 41-year-old female coming in with shortness of breath with respiratory failure, now intubated status post cardiac arrest with return of spontaneous circulation, supraventricular tachycardia, severe metabolic lactic acidosis, and renal insufficiency status post emergent dialysis. 1. Status post arrest. Again, patient will go to intensive care unit. Continue intubation. Get pulmonary consult. Check TSH, A1c, lipid panel. Monitor heart rate and vital signs very carefully. Consider cardiology consult. Check 2D echocardiogram as well. Currently the heart rate is in the 100 to 110 range. Consider EEG as well and consider neurology consult. 2. Severe renal insufficiency with subsequent severe metabolic acidosis. Again, IV fluids with sodium bicarb. Follow renal recommendations. Monitor urine output and BMP as well. 3. Type 2 diabetes. Again follow up A1c. Consider insulin sliding scale. 4. Respiratory failure. Again, status post intubation. Can follow-up pulmonary on consult for mechanical ventilation. Management broad-spectrum antibiotics. 5. Enteritis and colitis. Again, this was found on the CT scan. Enteritis, appears to be involving the stomach and duodenum. Colitis appears to be more along the large intestine, Again, in addition to broad-spectrum antibiotics for possible upper respiratory infection we will add Cipro and Flagyl to the regimen as well. Consider GI consult. Consider checking Clostridium difficile test as well. 6. Gastrointestinal prophylaxis. H2 julien. 7. Deep venous thrombosis prophylaxis. Sequential compression devices. Dictated By: Moustapha Tubbs MD /mery/leon /Document#: [id number] FIDELIA
[2017-07-20] MEDS ORDERED: GLUCOSE GEL 15 GRAM TUBE PO PRN ×2 (18:00)
[2017-07-20] MEDS ORDERED: GLUCAGON 1 MG INJ IM PRN (18:00)
[2017-07-20] MEDS ORDERED: DEXTROSE 50% 50 ML SYRINGE IV PRN ×2 (18:00)
[2017-07-20] MEDS ORDERED: GLUCOSE GEL 15 GRAM TUBE BUCCAL PRN (18:00)
[2017-07-20] MEDS ORDERED: ASPIRIN 300 MG SUPP PR ONE (18:00)
[2017-07-20] MEDS: ALBUTEROL/IPRATROPIUM (NEB) 3 ML AMP NEB SCH ×3 (18:42→21:39)
[2017-07-20] MEDS ORDERED: SODIUM BICARBONATE (IV ADD) 150 MEQ in SOD CHLORIDE 0.9% 1,000 ML IV SCH (19:00)
[2017-07-20] MEDS: metroNIDAZOLE 500 MG/NS (PMX) 100 ML IVPB SCH (19:01)
[2017-07-20 19:55] LABS: CALCIUM 8.4 mg/dl (8.4-10.2); POTASSIUM 3.9 mmol/L (3.5-5.1)
[2017-07-20 20:00] LABS: AADO2 Arterial 124.5 mmHg (7.0-24.0); Allen Test ACCEPTAB; Arterial Base Excess -26.5 mmol/L (-3.0-3); Arterial Fraction of Oxyhgb 97.6 % (93.0-99.0); Arterial MetHb 0.3 % (0.0-1.5); Arterial Total Hemglobin 7.9 g/dl (12.0-18.0); MODE VENT - AC/VC+
[2017-07-20 20:06] LABS: CREATININE 9.79 mg/dl (0.44-1.00)
--- NOTE | 2017-07-20 20:18 | CONS ---
DATE OF ADMISSION: 07/20/2017 DATE OF CONSULTATION: NEPHROLOGY CONSULTATION Thank you, Dr. Anthony Wylie and Dr. roman, for kindly asking me to see this patient in nephrology consultation. HISTORY OF PRESENT ILLNESS: A 41-year-old female who presented to this hospital with respiratory failure. The patient is currently intubated and unable to give any detailed history. Patient noted to have elevated BUN and creatinine. Nephrology consultation requested. PAST MEDICAL HISTORY: Not available at this point. ALLERGY HISTORY: NOT AVAILABLE. FAMILY HISTORY: Not available. SOCIAL HISTORY: Not available. MEDICATION HISTORY: Not available. REVIEW OF SYSTEMS: Cannot be obtained. PHYSICAL EXAMINATION: GENERAL: Anasarcic looking female, intubated. VITAL SIGNS: Pulse 115, blood pressure 90/59. HEENT: Head is atraumatic, normocephalic. Pupils are equal, reactive. NECK: Supple. LUNGS: Shows rales bilaterally, also rhonchi noted. CARDIOVASCULAR: S1, S2 normal. ABDOMEN: Obese, bowel sounds present. No palpable mass. EXTREMITIES: No cyanosis, clubbing. Edema noted, and also generalized edema noted. CENTRAL NERVOUS SYSTEM: The patient is intubated, sedated. LABORATORY DATA: ABG 6.66, pCO2 of 16, pO2 of 271. The patient had a sodium of 132, potassium 6.2, BUN of 126, creatinine 14.35, ALP 113.91, calcium 6.7. The patient has lactic acid 10.0, repeat 8.6. Phosphorus 12.2, lipase 432, CO2 less than 5. IMPRESSION: 1. Patient has acute hypoxic respiratory failure. 2. Anasarca. 3. Hyperkalemia. 4. Metabolic acidosis. 5. Severe anemia. 6. The patient has elevated BNP. 7. Hypoglycemia. 8. Obesity. 9. Underlying chronic kidney disease. 10. Incomplete database. PLAN: Obtain a UA, urine sodium and creatinine, urine albumin creatinine ratio , hepatitis panel. The patient will have hemodialysis after dialysis catheter placement. The patient received, in the ER, sodium bicarbonate and D50. The patient received calcium gluconate and norepinephrine, and cefepime. Patient will have laboratory data repeated after hemodialysis. Thank you, and Dr. Anthony Wylie, for kindly asking me to see this patient in nephrology consultation. Dictated By: JASVIR TREVIÑO/NTS Conf#: [id number] [facility]#: [id number] CC: ANTHONY WYLIE MD; ;*EndCC* MTDD
[2017-07-20] MEDS: CIPROFLOXACIN 400MG/D5W 200 ML IVPB SCH (20:50)
[2017-07-20] MEDS: INSULIN ASPART [NOVOLOG] 3 ML PEN SC SCH (21:00)
[2017-07-20] MEDS: FAMOTIDINE 20 MG INJ IV SCH (21:14)
[2017-07-20 21:52] LABS: ABNORMAL IP MESSAGE 1; HEMATOCRIT 21.2 % (37.0-47.0); MEAN CORPUSCULAR VOLUME 96.8 fl (82.0-101.0); MEAN PLATELET VOLUME 9.3 fl (7.4-10.4); NUCLEATED RED BLOOD CELLS% 1.8 /100WBC (0.0-0.0); PLATELET COUNT 214 10^3/UL (140-415); RED BLOOD COUNT 2.19 10^6/ul (4.20-5.40); RED CELL DISTRIBUTION WIDTH 16.7 % (11.5-14.5); WHITE BLOOD COUNT 17.6 10^3/ul (4.8-10.8)
[2017-07-20 22:00] LABS: POSITIVE DIFF @See below
[2017-07-20 22:13] LABS: ALANINE AMINOTRANSFERASE 86 IU/L (13-69); ALBUMIN 3.2 g/dl (3.3-4.9); ALKALINE PHOSPHATASE 156 IU/L (42-121); ASPARTATE AMINO TRANSFERASE 128 IU/L (15-46); BLOOD UREA NITROGEN 93 mg/dl (7-20); CALCIUM 8.2 mg/dl (8.4-10.2); CHLORIDE 99 mmol/L (97-110); GLUCOSE 189 mg/dl (70-220); POTASSIUM 4.5 mmol/L (3.5-5.1); SODIUM 136 mmol/L (135-144); TOTAL PROTEIN 6.1 g/dl (6.1-8.1)
[2017-07-20] MEDS ORDERED: PHENYLephrine 20MG IN 250 ML 250 ML ONE (22:13)
[2017-07-20 22:21] LABS: ANION GAP 37 (8-16); CARBON DIOXIDE < 5 mmol/L (21-31)
[2017-07-20 22:22] LABS: CREATININE 10.59 mg/dl (0.44-1.00)
[2017-07-20 22:24] LABS: CK-MB 9.13 ng/ml (0.0-2.4)
[2017-07-20 22:25] LABS: TROPONIN-I 0.968 ng/ml (0.00-0.12)
--- NOTE | 2017-07-20 22:35 | EN ---
Date/Time of Note Date/Time of Note DATE: 07/20/17 TIME: 22:15. 41-year-old female in for respiratory failure status post intubation requiring mechanical ventilation, acute renal failure and severe acidosis status post dialysis came hypotensive with systolic blood pressure down to 40. EKG revealed a wide complex tachycardia ventricular rate of 108. Patient treated aggressively with calcium and multiple amps of sodium bicarb. Transient bradycardia requiring atropine. Reverted back to her baseline narrow complex sinus tachycardia and blood pressure improved to greater than 100 systolic. Patient pending ICU admission. Admitting physician, , informed. Critical Care Time: 30 minutes, not including other separately reportable procedures JORGE LUIS MUJICA MD Jul 20, 2017 22:35
--- NOTE | 2017-07-20 22:35 | EN ---
Date/Time of Note Date/Time of Note DATE: 07/20/17 TIME: 21:10 [facility] Agrees patient is unstable for transfer. Case [id number] signed. JORGE LUIS MUJICA MD Jul 20, 2017 22:35
[2017-07-20 23:03] LABS: AADO2 Arterial 95.1 mmHg (7.0-24.0); Allen Test ACCEPTAB; Arterial Fraction of Oxyhgb 97.7 % (93.0-99.0); Arterial HCO3 4.2 mmol/L (22.0-26.0); Arterial MetHb 0.3 % (0.0-1.5); Arterial Total Hemglobin 7.8 g/dl (12.0-18.0); MODE VENT - AC/VC+
[2017-07-20 23:06] LABS: ANISOCYTOSIS 2+ (0-0); BURR CELLS 3+ (0-0); ERYTHROBLAST% (NRBC) (M) 1 % (0-0); MONOCYTES % (M) 5 % (0-11); PLATELET ESTIMATE NORMAL; POIKILOCYTOSIS 3+ (0-0); POLYCHROMASIA 2+ (0-0)
[2017-07-21] VITALS (91 sets, daily range): BP systolic 84–202; BP diastolic 48–86; PULSE 85–118; RESP 0–39; TEMP 98; Ht 157.5 cm; Wt 90.4 kg
[2017-07-21] MEDS: PHENYLephrine 40 MG in DEXTROSE 5% 496 ML IV SCH ×2 (00:31→05:47)
[2017-07-21] MEDS: metroNIDAZOLE 500 MG/NS (PMX) 100 ML IVPB SCH ×5 (00:55→23:36)
[2017-07-21 01:02] LABS: CK-MB 11.6 ng/ml (0.0-2.4)
[2017-07-21 01:04] LABS: TROPONIN-I 2.18 ng/ml (0.00-0.12)
[2017-07-21] MEDS: ALBUTEROL/IPRATROPIUM (NEB) 3 ML AMP NEB SCH (01:28)
[2017-07-21] MEDS ORDERED: PHENYLephrine 20MG IN 250 ML 250 ML ONE (02:37)
[2017-07-21] MEDS: INSULIN ASPART [NOVOLOG] 3 ML PEN SC SCH ×6 (02:45→20:54)
[2017-07-21] MEDS: ACCU-CHEK XX SCH (02:47)
[2017-07-21] MEDS: IPRATROPIUM (HFA) 12.9 GM INHALER INH SCH ×5 (05:50→21:39)
[2017-07-21] MEDS: ALBUTEROL HFA 8 GM INHALER INH SCH ×5 (05:50→21:38)
[2017-07-21 05:51] LABS: Allen Test ACCEPTAB; Arterial Base Excess -25.9 mmol/L (-3.0-3); Arterial Fraction of Oxyhgb 98.2 % (93.0-99.0); Arterial HCO3 3.6 mmol/L (22.0-26.0); Arterial MetHb 0.3 % (0.0-1.5); Arterial Total Hemglobin 7.2 g/dl (12.0-18.0); MODE VENT - AC
[2017-07-21] MEDS ORDERED: PANTOPRAZOLE 40 MG INJ IV SCH (06:00)
--- NOTE | 2017-07-21 06:54 | RADRPT ---
PROCEDURE: XR Chest. CLINICAL INDICATION: Endotracheal tube repositioning TECHNIQUE: A single AP view of the chest was obtained. COMPARISON: CHEST 07/20/2017; CHEST 07/20/2017; CHEST 07/20/2017 FINDINGS: The endotracheal tube tip is approximately 2.4 cm above the jerry. The tip of the enteric tube ex tends below the left diaphragm. There is a left internal jugular central venous catheter with tip ne ar the cavoatrial junction. Lung volumes are low with compressive changes and crowding of the central pulmonary vascular marking s. No focal airspace opacity, pleural effusion or pneumothorax is seen. The cardiomediastinal silho uette is within normal limits for size. The osseous structures are unremarkable. IMPRESSION: 1. Low lung volumes with compressive changes. No significant interval change. 2. Tubes and lines, as described above. RPTAT: HH .Lakisha Marquez MD, MD Date Time Electronically viewed and signed by .Lakisha Marquez MD, on 07/21/2017 05:36 .G/
[2017-07-21 06:58] LABS: HEMATOCRIT 19.9 % (37.0-47.0); MEAN CORPUSCULAR HEMOGLOBIN 32.2 pg (29.0-33.0); MEAN CORPUSCULAR HGB CONC 33.2 g/dl (32.0-37.0); MEAN CORPUSCULAR VOLUME 97.1 fl (82.0-101.0); MEAN PLATELET VOLUME 9.2 fl (7.4-10.4); NUCLEATED RED BLOOD CELLS% 3.6 /100WBC (0.0-0.0); PLATELET COUNT 230 10^3/UL (140-415); RED BLOOD COUNT 2.05 10^6/ul (4.20-5.40); RED CELL DISTRIBUTION WIDTH 16.8 % (11.5-14.5); WHITE BLOOD COUNT 20.6 10^3/ul (4.8-10.8)
[2017-07-21 06:59] LABS: ABNORMAL IP MESSAGE 1
[2017-07-21 07:15] LABS: CHOL/HDL RATIO 1.6 RATIO
[2017-07-21 07:16] LABS: ALANINE AMINOTRANSFERASE 161 IU/L (13-69); ALBUMIN 3.1 g/dl (3.3-4.9); ALKALINE PHOSPHATASE 151 IU/L (42-121); ASPARTATE AMINO TRANSFERASE 278 IU/L (15-46); BLOOD UREA NITROGEN 92 mg/dl (7-20); CALCIUM 7.8 mg/dl (8.4-10.2); CHLORIDE 101 mmol/L (97-110); GLUCOSE 138 mg/dl (70-220); POTASSIUM 4.5 mmol/L (3.5-5.1); SODIUM 139 mmol/L (135-144); TOTAL PROTEIN 5.9 g/dl (6.1-8.1)
[2017-07-21 07:23] LABS: ANION GAP 38 (8-16); CARBON DIOXIDE < 5 mmol/L (21-31); CREATININE 10.28 mg/dl (0.44-1.00); HEMOGLOBIN 6.6 g/dl (12.0-16.0); POSITIVE DIFF @See below
[2017-07-21] MEDS ORDERED: NA BICARBONATE 8.4% 50 ML SYG IV ONE (07:40)
[2017-07-21] MEDS ORDERED: SOD CHLORIDE 0.9% 250 ML IV* ONE (07:40)
[2017-07-21] MEDS ORDERED: NA BICARBONATE 8.4% 50 ML SYG IV STA ×2 (07:40)
[2017-07-21 07:47] LABS: THYROID STIMULATING HORMONE 6.39 MIU/L (0.465-4.680)
[2017-07-21] MEDS: SODIUM BICARBONATE (IV ADD) 150 MEQ in SOD CHLORIDE 0.9% 1,000 ML IV SCH (08:08)
[2017-07-21] MEDS: PROPOFOL 100 ML IV SCH ×2 (10:00→22:35)
[2017-07-21] MEDS ORDERED: ENOXAPARIN 40 MG/0.4 ML SYG SC SCH (10:00)
[2017-07-21 10:09] LABS: ANISOCYTOSIS 1+ (0-0); EOSINOPHILS % (M) 1 % (0-7); ERYTHROBLAST% (NRBC) (M) 3 % (0-0); MONOCYTES % (M) 6 % (0-11); PLATELET ESTIMATE NORMAL; POIKILOCYTOSIS 3+ (0-0); POLYCHROMASIA 3+ (0-0)
--- NOTE | 2017-07-21 10:39 | PN ---
Date/Time of Note Date/Time of Note DATE: 07/21/17 TIME: 10:34 Assessment/Plan VTE Prophylaxis VTE Prophylaxis Intervention: SCD's Lines/Catheters IV Catheter Type (from Nrs): Central Line Central line still needed: Yes Urinary Cath still in place: Yes Reason Cath still needed: urinary retention Assessment/Plan Chief Complaint/Hosp Course S: Patient still intubated, required multiple doses of bicarb pushes this morning secondary to continued metabolic acidosis. Off of Juan-Synephrine pressor, but still on levofed. Getting blood transfusion now and also dialysis this morning. GENERAL: Patient lying in bed, intubated NECK: Supple. HEENT: Pupils equal, round, react to light. Extraocular muscles intact. LUNGS: Slightly distant breath sounds bilaterally. CARDIOVASCULAR: S1, S2 heard. No rubs, gallops. ABDOMEN: Soft, nontender, nondistended. Normal bowel sounds. No rebound or guarding. MUSCULOSKELETAL: 1+ pitting edema bilateral lower extremities to the mid calves. Slightly swollen. NEUROLOGIC: Unable to fully assess because patient is intubated at this time. ASSESSMENT AND PLAN: 41-year-old female coming in with shortness of breath with respiratory failure, now intubated status post cardiac arrest with return of spontaneous circulation, supraventricular tachycardia, severe metabolic lactic acidosis, and renal insufficiency status post emergent dialysis. 1. Status post arrest - continue intensive care unit. Continue intubation. Follow-up pulmonary consult recommendations. Check TSH, A1c, lipid panel. Monitor heart rate and vital signs very carefully. Consider cardiology consult. Follow-up results of 2D echocardiogram as well. Consider EEG as well and consider neurology consult. 2. Severe renal insufficiency with subsequent severe metabolic acidosis-still present. Getting dialysis per renal recommendations. Also on IV fluids with sodium bicarb - again, continue IV fluids with sodium bicarb. - Follow renal recommendations. Monitor urine output and BMP as well. 3. Type 2 diabetes-A1c equals 5.3- consider insulin sliding scale. 4. Respiratory failure. Again, status post intubation. - follow-up pulmonary on consult for mechanical ventilation. -Continue broad-spectrum antibiotics. 5. Enteritis and colitis. Again, this was found on the CT scan. Enteritis, appears to be involving the stomach and duodenum. Colitis appears to be more along the large intestine, -Continue broad-spectrum antibiotics with Cipro and Flagyl to the regimen as well. Consider GI consult. Consider checking Clostridium difficile test as well. 6. Anemia: Unclear source -Getting PRBC transfusion, follow-up CBC after transfusion -Check stool occult test, would recommend holding off on anticoagulants for now until we know further where the anemia is possibly coming from 7. Gastrointestinal prophylaxis. H2 julien. 8. Deep venous thrombosis prophylaxis. Sequential compression devices. Critical care time spent on patient care today equals 50 minutes. Problems: Exam/Review of Systems Vital Signs Vitals Vital Signs Date Time Temp Pulse Resp B/P Pulse Ox O2 Delivery O2 Flow Rate FiO2 07/21/17 09:38 105 39 100 30 07/21/17 07:00 122/76 Mechanical Ventilator 07/21/17 04:00 98.6 07/21/17 01:19 15.0 Intake and Output 07/20/17 07/20/17 07/21/17 14:59 22:59 06:59 Intake Total 700 ml 739.91 ml Output Total 2500 ml 0 ml Balance -1800 ml 739.91 ml Results Result Diagram: 07/21/17 0600 07/21/17 0600 Results 24 hrs Laboratory Tests Test 07/20/17 11:06 07/20/17 11:20 07/20/17 11:21 07/20/17 12:20 Blood Gas Specimen Source Blood arterial Blood arterial Arterial Blood Date Drawn 07/20/2017 11:10:47 AM 07/20/2017 11:50:20 AM Arterial Blood pH (Temp corrected) 6.665 *L 6.658 *L Arterial Blood pCO2 (Temp correct) 16.1 L 24.8 L Arterial Blood pO2 (Temp corrected) 271.1 H 103.6 H Arterial Blood HCO3 1.8 *L 2.7 *L Arterial Blood Base Excess -32.8 L -32.0 L Arterial Blood Oxygen Saturation 99.0 H 91.3 L Tommy Test ACCEPTAB N/A Arterial Blood Gas Puncture Site Right Radial OTHER Arterial Blood Carboxyhemoglobin 0.6 0.8 Arterial Blood Methemoglobin 0.2 0.2 Oxyhemoglobin Percent 98.2 90.4 L Total Hemoglobin 7.8 L 7.6 L Blood Gas Temperature 37.0 37.0 Blood Gas Respiration Rate 14.0 28.0 Blood Gas Actual Respiration Rate 24 29 Blood Gas Modality MASK - BIPAP VENT - AC FiO2 40.0 100.0 Blood Gas IPAP/EPAP Ratio 15/5 Blood Gas Critical Value Read Back DR VERNON JUNIOR Blood Gas Notified Whom MD DELVALLE Blood Gas Notified Time 07/20/2017 11:31:31 AM 07/20/2017 12:00:12 PM Bedside Glucose 236 H Blood Gas Tidal Volume 500.0 Blood Gas Low PEEP Setting 5.0 Sodium Level 134 L Potassium Level 6.0 H Chloride Level 102 Carbon Dioxide Level < 5 *L Anion Gap 33 H Blood Urea Nitrogen 120 H Creatinine 13.91 H Glucose Level 136 # Lactic Acid Level 10.0 *H Calcium Level 6.7 L Test 07/20/17 12:40 07/20/17 15:20 07/20/17 17:40 07/20/17 19:10 Blood Gas Specimen Source Blood arterial Blood arterial Arterial Blood Date Drawn 07/20/2017 1:20:17 PM 07/20/2017 7:47:08 PM Arterial Blood pH (Temp corrected) 6.624 *L 6.927 *L Arterial Blood pCO2 (Temp correct) 16.6 L 19.7 L Arterial Blood pO2 (Temp corrected) 560.6 H 209.8 H Arterial Blood HCO3 1.7 *L 4.0 *L Arterial Blood Base Excess -34.2 L -26.5 L Arterial Blood Oxygen Saturation 99.6 H 98.9 H Tommy Test ACCEPTAB ACCEPTAB Arterial Blood Gas Puncture Site Right Radial Right Radial Arterial Blood Carboxyhemoglobin 0.3 1.0 Arterial Blood Methemoglobin 0.2 0.3 Blood Gas A-a O2 Differential 135.8 H 124.5 H Oxyhemoglobin Percent 99.1 H 97.6 Total Hemoglobin 9.0 L 7.9 L Blood Gas Temperature 37.0 37.0 Blood Gas Respiration Rate 30.0 30.0 Blood Gas Actual Respiration Rate 30 35 Blood Gas Modality VENT - AC VENT - AC/VC+ FiO2 100.0 50.0 Blood Gas Tidal Volume 500.0 500.0 Blood Gas Low PEEP Setting 5.0 5.0 Blood Gas Critical Value Read Back Jason SOUZA MD Blood Gas Notified Whom GALLITO SWANSON Blood Gas Notified Time 07/20/2017 1:28:25 PM 07/20/2017 8:00:25 PM Lactic Acid Level 8.6 *H 10.7 *H Phosphorus Level 12.2 H Iron Level 101 Total Iron Binding Capacity 312 Percent Iron Saturation 32 Creatine Kinase 298 H Creatine Kinase Index 2.3 Creatinine Kinase MB (Mass) 6.96 H Troponin I 0.175 *H Lipase 432 H Free Thyroxine 0.85 Parathyroid Hormone (Intact) Ethyl Alcohol Level < 10.0 Hepatitis B Surface Antigen NEGATIVE Hepatitis B Core Total Antibody NEGATIVE Hepatitis C Antibody NEGATIVE Sodium Level 135 Potassium Level 3.9 # Chloride Level 100 Carbon Dioxide Level 6 *L Anion Gap 33 H Blood Urea Nitrogen 92 H Creatinine 9.79 #H Glucose Level 162 Calcium Level 8.4 Blood Gas Inspiratory Time 0.7 Blood Gas Inspiratory Pressure 26.0 Test 07/20/17 21:44 07/20/17 22:51 07/20/17 23:38 07/21/17 02:05 White Blood Count 17.6 #H Red Blood Count 2.19 L Hemoglobin 7.0 L Hematocrit 21.2 L Mean Corpuscular Volume 96.8 Mean Corpuscular Hemoglobin 32.0 Mean Corpuscular Hemoglobin Concent 33.0 Red Cell Distribution Width 16.7 H Platelet Count 214 # Mean Platelet Volume 9.3 Neutrophils % Segmented Neutrophils % (Manual) 84 H Band Neutrophils % (Manual) 6 H Lymphocytes % Lymphocytes % (Manual) 5 L Monocytes % Monocytes % (Manual) 5 Eosinophils % Basophils % Nucleated Red Blood Cells % 1 H Neutrophils # Neutrophils # (Manual) 15.0 H Band Neutrophils # 1.0 H Absolute Lymphocytes (Manual) 0.8 Lymphocytes # Monocytes # Absolute Monocytes (Manual) 0.8 Eosinophils # Basophils # Nucleated Red Blood Cells # Platelet Estimate NORMAL Polychromasia 2+ Poikilocytosis 3+ Anisocytosis 2+ Macrocytosis 1+ Sodium Level 136 Potassium Level 4.5 Chloride Level 99 Carbon Dioxide Level < 5 *L Anion Gap 37 H Blood Urea Nitrogen 93 H Creatinine 10.59 H Glucose Level 189 Lactic Acid Level 11.4 *H Calcium Level 8.2 L Total Bilirubin 0.0 L Direct Bilirubin 0.00 Indirect Bilirubin 0.0 Aspartate Amino Transf (AST/SGOT) 128 H Alanine Aminotransferase (ALT/SGPT) 86 H Alkaline Phosphatase 156 H Ammonia 49 H Creatine Kinase 241 H 278 H Creatine Kinase Index 3.8 4.2 Creatinine Kinase MB (Mass) 9.13 H 11.60 H Troponin I 0.968 *H 2.180 *H Total Protein 6.1 Albumin 3.2 L Globulin 2.90 Albumin/Globulin Ratio 1.10 Blood Gas Specimen Source Blood arterial Arterial Blood Date Drawn 07/20/2017 10:48:40 PM Arterial Blood pH (Temp corrected) 6.943 *L Arterial Blood pCO2 (Temp correct) 19.8 L Arterial Blood pO2 (Temp corrected) 239.1 H Arterial Blood HCO3 4.2 *L Arterial Blood Base Excess -26.0 L Arterial Blood Oxygen Saturation 99.0 H Tommy Test ACCEPTAB Arterial Blood Gas Puncture Site Right Radial Arterial Blood Carboxyhemoglobin 1.0 Arterial Blood Methemoglobin 0.3 Blood Gas A-a O2 Differential 95.1 H Oxyhemoglobin Percent 97.7 Total Hemoglobin 7.8 L Blood Gas Temperature 37.0 Blood Gas Respiration Rate 30.0 Blood Gas Actual Respiration Rate 35 Blood Gas Modality VENT - AC/VC+ FiO2 50.0 Blood Gas Inspiratory Time 0.7 Blood Gas Tidal Volume 500.0 Blood Gas Low PEEP Setting 5.0 Blood Gas Inspiratory Pressure 33.0 Blood Gas Critical Value Read Back Leobardo MUJICA MD Blood Gas Notified Whom AA Blood Gas Notified Time 07/20/2017 11:02:53 PM Bedside Glucose 198 Test 07/21/17 05:00 07/21/17 05:43 07/21/17 06:00 07/21/17 08:24 Blood Gas Specimen Source Blood arterial Arterial Blood Date Drawn 07/21/2017 5:37:38 AM Arterial Blood pH (Temp corrected) 6.980 *L Arterial Blood pCO2 (Temp correct) 15.6 L Arterial Blood pO2 (Temp corrected) 387.3 H Arterial Blood HCO3 3.6 *L Arterial Blood Base Excess -25.9 L Arterial Blood Oxygen Saturation 99.5 H Tommy Test ACCEPTAB Arterial Blood Gas Puncture Site Left Radial Arterial Blood Carboxyhemoglobin 1.0 Arterial Blood Methemoglobin 0.3 Oxyhemoglobin Percent 98.2 Total Hemoglobin 7.2 L Blood Gas Temperature 37.0 Blood Gas Respiration Rate 30.0 Blood Gas Actual Respiration Rate 37 Blood Gas Modality VENT - AC FiO2 40.0 Blood Gas Tidal Volume 500.0 Blood Gas Low PEEP Setting 5.0 Blood Gas Critical Value Read Back RODRIGUE KEY Blood Gas Notified Whom R H Blood Gas Notified Time 07/21/2017 5:51:05 AM Bedside Glucose 156 128 White Blood Count 20.6 H Red Blood Count 2.05 L Hemoglobin 6.6 *L Hematocrit 19.9 L Mean Corpuscular Volume 97.1 Mean Corpuscular Hemoglobin 32.2 Mean Corpuscular Hemoglobin Concent 33.2 Red Cell Distribution Width 16.8 H Platelet Count 230 Mean Platelet Volume 9.2 Neutrophils % Segmented Neutrophils % (Manual) 75 Band Neutrophils % (Manual) 17 H Lymphocytes % Lymphocytes % (Manual) 1 L Monocytes % Monocytes % (Manual) 6 Eosinophils % Eosinophils % (Manual) 1 Basophils % Nucleated Red Blood Cells % 3 H Neutrophils # Neutrophils # (Manual) 16.2 H Band Neutrophils # 3.5 H Absolute Lymphocytes (Manual) 0.2 L Lymphocytes # Monocytes # Absolute Monocytes (Manual) 1.2 H Eosinophils # Basophils # Nucleated Red Blood Cells # Platelet Estimate NORMAL Polychromasia 3+ Poikilocytosis 3+ Anisocytosis 1+ Macrocytosis 1+ Sodium Level 139 Potassium Level 4.5 Chloride Level 101 Carbon Dioxide Level < 5 *L Anion Gap 38 H Blood Urea Nitrogen 92 H Creatinine 10.28 H Glucose Level 138 # Hemoglobin A1c 5.3 Calcium Level 7.8 L Total Bilirubin 0.0 L Direct Bilirubin 0.00 Indirect Bilirubin 0.0 Aspartate Amino Transf (AST/SGOT) 278 H Alanine Aminotransferase (ALT/SGPT) 161 H Alkaline Phosphatase 151 H Total Protein 5.9 L Albumin 3.1 L Globulin 2.80 Albumin/Globulin Ratio 1.10 Triglycerides Level 224 H Cholesterol Level 119 LDL Cholesterol, Calculated 2 HDL Cholesterol 72 Cholesterol/HDL Ratio 1.6 Thyroid Stimulating Hormone (TSH) 6.390 H Medications Medications Current Medications Ondansetron HCl (Zofran Inj) 4 mg Q6H PRN IV NAUSEA AND/OR VOMITING; Start 07/20/17 at 12:00 Acetaminophen (Tylenol Liquid) 650 mg Q6H PRN PO PAIN LEVEL 1-3 OR FEVER; Start 07/20/17 at 12:00 Acetaminophen (Tylenol Tab) 650 mg Q6H PRN PO PAIN LEVEL 1-3 OR FEVER; Start 07/20/17 at 12:00 Docusate Sodium (Colace) 100 mg Q12H PRN PO CONSTIPATION; Start 07/20/17 at 12: 00 Magnesium Hydroxide (Milk Of Mag) 30 ml DAILY PRN PO CONSTIPATION; Start at 12:00 Bisacodyl (Dulcolax) 5 mg DAILY PRN PO CONSTIPATION; Start 07/20/17 at 12:00 Acetaminophen/ Hydrocodone Bitart (Jewett (5/325)) 1 tab Q6H PRN PO MODERATE PAIN LEVEL 4-6; Start 07/20/17 at 16:00 Morphine Sulfate (morphine) 2 mg Q4H PRN IV SEVERE PAIN LEVEL 7-10; Start 07/20 at 16:00 Sodium Biphosphate/ Sodium Phosphate (Fleet Enema) 133 ml DAILY PRN CA CONSTIPATION; Start 07/20/17 at 16:00 Famotidine (Pepcid Iv) 20 mg Q48H IV Last administered on 07/20/17 21:14; Admin Dose 20 MG; Start 07/20/17 at 21:00 Lorazepam (Ativan) 0.5 mg Q6H PRN IV ANXIETY; Start 07/20/17 at 16:00 Nitroglycerin 1 tab 1 tab Q5M PRN SL ANGINA; Start 07/20/17 at 16:00 Ciprofloxacin/ Dextrose 200 ml @ 200 mls/hr Q24H IVPB Last administered on 20:50; Admin Dose 200 MLS/HR; Start 07/20/17 at 20:00 Metronidazole (Flagyl 500 Mg (Pmx)) 100 ml @ 100 mls/hr Q6 IVPB Last administered on 07/21/17 05:47; Admin Dose 100 MLS/HR; Start 07/20/17 at 19:00 Diagnostic Test (Pha) (Accu-Chek) 1 ea 02 XX Last administered on 07/21/17 02: 47; Admin Dose 1 EA; Start 07/21/17 at 02:00 Insulin Aspart (Novolog Insulin Pen) NOVOLOG *MILD* ALGORI... Q4 SC Last administered on 07/21/17 05:46; Admin Dose 1 UNIT; Start 07/20/17 at 21:00 Miscellaneous Information 1 ea NOTE XX ; Start 07/20/17 at 18:00 Glucose (Glutose) 15 gm Q15M PRN PO DECREASED GLUCOSE; Start 07/20/17 at 18:00 Glucose (Glutose) 22.5 gm Q15M PRN PO DECREASED GLUCOSE; Start 07/20/17 at 18: 00 Dextrose (D50w Syringe) 25 ml Q15M PRN IV DECREASED GLUCOSE; Start 07/20/17 at 18:00 Dextrose (D50w Syringe) 50 ml Q15M PRN IV DECREASED GLUCOSE; Start 07/20/17 at 18:00 Glucagon (Glucagen) 1 mg Q15M PRN IM DECREASED GLUCOSE; Start 07/20/17 at 18:00 Glucose 15 gm 15 gm Q15M PRN BUCCAL DECREASED GLUCOSE; Start 07/20/17 at 18:00 Cefepime HCl 50 ml @ 100 mls/hr Q24H IVPB ; Start 07/21/17 at 17:00 Phenylephrine HCl 40 mg/Dextrose 500 ml @ 75 mls/hr TITRATE IV Last administered on 07/21/17 05:47; Admin Dose 45 MLS/HR; Start 07/21/17 at 00:00 Norepinephrine 32 mg/Dextrose 500 ml @ 0.93 mls/hr TITRATE PRN IV BLOOD PRESSURE SUPPORT Last administered on 07/21/17 05:45; Admin Dose 28.12 MLS/HR; Start 07/21/17 at 02:30 Sodium Bicarbonate 150 meq/Sodium Chloride 1,150 ml @ 60 mls/hr [id number] IV Last administered on 07/21/17 08:08; Admin Dose 60 MLS/HR; Start 07/21/17 at 08 :00 Vancomycin HCl 750 mg/Dextrose/ Water 112.5 ml @ 75 mls/hr ONCE ONCE IVPB ; Start 07/21/17 at 11:00; Stop 07/21/17 at 12:29 Propofol (Diprivan) 100 ml @ 2.712 mls/ hr Q12H IV ; Start 07/21/17 at 10:00 Enoxaparin Sodium (Lovenox) 40 mg DAILY SC ; Start 07/21/17 at 10:00; Status AKBAR CORNEJO Jul 21, 2017 10:39
[2017-07-21] MEDS ORDERED: VANCOMYCIN 750 MG in DEXTROSE 5% 150 ML IVPB ONE (11:00)
--- NOTE | 2017-07-21 12:08 | CONS ---
DATE OF ADMISSION: 07/20/2017 DATE OF CONSULTATION: TYPE OF CONSULTATION: Pulmonary. REASON FOR CONSULTATION: Ventilator management. Thank you, Dr. Tubbs, for this consultation. 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 The patient was found to have severe lactic an metabolic acidosis with a pH of 6.66, bica rbonate was 1.8. Emergent dialysis catheter was placed. Patient was given intravenous bicarbonate and hemodialysis was performed. Currently, she remains sedated on mechanical ventilation. Few furt her details are available. PAST MEDICAL HISTORY: As above. MEDICATIONS: Per chart. ALLERGIES: APPARENTLY NONE. SOCIAL HISTORY: Nonsmoker, no alcohol, no history of drug use. FAMILY HISTORY: Noncontributory. SYSTEMS REVIEW: A 12-point review of systems unable to perform. PHYSICAL EXAMINATION: GENERAL: Well-nourished, well-developed lady, comfortable at rest, no acute distress. VITAL SIGNS: Currently afebrile, pulse is 95, blood pressure 119/63, O2 saturation 96% on FIO2 of 3 0%, orally intubated. HEENT: Dry mucous membranes. Pupils equal and reactive to light. CARDIAC: S1, S2, no added sounds or murmurs. CHEST: Diminished air entry bilaterally. ABDOMEN: Soft, nontender. No guarding or rebound. EXTREMITIES: No cyanosis, clubbing or edema. NEUROLOGIC: Generalized weakness. LABORATORY DATA: White count 20.6, hemoglobin 6.6, platelets of 230, bicarbonate this morning was l ess than 5, BUN 92, creatinine 10.28. ABG this morning, pH 6.9, pCO2 of 15, pO2 387, bicarbonate wa s 3.6, alcohol level was less than 10, point of care glucose was 138. IMPRESSION AND PLAN: 1. Severe lactic acidosis, possibly secondary to metformin overdose. 2. Acute renal failure. 3. Respiratory failure secondary to above. The patient will require 1. Continued hemodialysis with correction of metabolic acidosis. 2. Continue mechanical ventilation. 3. Continue bicarbonate infusion. 4. Deep venous thrombosis and gastrointestinal prophylaxis. Dictated By: PHILIPPE BARAJAS MD SV/JOSE DE JESUS Conf#: [id number] DID#: [id number]
[2017-07-21 14:35] LABS: AADO2 Arterial 69.1 mmHg (7.0-24.0); Allen Test ACCEPTAB; Arterial Base Excess -13.6 mmol/L (-3.0-3); Arterial COHb 0.3 % (0.0-3.0); Arterial HCO3 10.5 mmol/L (22.0-26.0); Arterial MetHb 0.3 % (0.0-1.5); Arterial Total Hemglobin 9.6 g/dl (12.0-18.0); MODE VENT - AC
--- NOTE | 2017-07-21 15:16 | CONS ---
Date/Time of Note Date/Time of Note DATE: 07/21/17 TIME: 15:14 Assessment/Plan Assessment/Plan Chief Complaint/Hosp Course 1. Acute hypoxic respiratory failure. 2. Anasarca. 3. Hyperkalemia. 4. Metabolic acidosis. 5. Severe anemia. 6. The patient has elevated BNP. 7. Hypoglycemia. 8. Obesity. 9. Underlying chronic kidney disease. 10 non compliance Problems: Additional Assessment/Plan 1. continue ICu care 2. Continue HD 3. Optimization of kidney function Consultation Date/Type/Reason Admit Date/Time Jul 20, 2017 at 15:54 Initial Consult Date 07/19/2017 Type of Consultation: nephrology Reason for Consultation Dr Carranza 24 HR Interval Summary Subjective hx not possible: pt non-verbal Exam/Review of Systems Vital Signs Vitals Vital Signs Date Time Temp Pulse Resp B/P Pulse Ox O2 Delivery O2 Flow Rate FiO2 07/21/17 13:21 90 30 100 30 07/21/17 11:00 119/63 07/21/17 08:00 99.0 07/21/17 07:15 Mechanical Ventilator 07/21/17 01:19 15.0 Intake and Output 07/20/17 07/20/17 07/21/17 15:00 23:00 07:00 Intake Total 500 ml 200 ml 954.28 ml Output Total 2500 ml 0 ml Balance -2000 ml 200 ml 954.28 ml Exam orally intubated Head: normocephalic Eyes: nl conjunctiva ENMT: nl external ears & nose Neck: supple Respiratory: diminished breath sounds Gastrointestinal: soft Results Result Diagram: 07/21/17 0600 07/21/17 0600 Results 24 hrs Laboratory Tests Test 07/20/17 15:20 07/20/17 17:40 07/20/17 19:10 07/20/17 21:44 Lactic Acid Level 8.6 *H 10.7 *H 11.4 *H Phosphorus Level 12.2 H Iron Level 101 Total Iron Binding Capacity 312 Percent Iron Saturation 32 Creatine Kinase 298 H 241 H Creatine Kinase Index 2.3 3.8 Creatinine Kinase MB (Mass) 6.96 H 9.13 H Troponin I 0.175 *H 0.968 *H Lipase 432 H Free Thyroxine 0.85 Parathyroid Hormone (Intact) Ethyl Alcohol Level < 10.0 Hepatitis B Surface Antigen NEGATIVE Hepatitis B Core Total Antibody NEGATIVE Hepatitis C Antibody NEGATIVE Sodium Level 135 136 Potassium Level 3.9 # 4.5 Chloride Level 100 99 Carbon Dioxide Level 6 *L < 5 *L Anion Gap 33 H 37 H Blood Urea Nitrogen 92 H 93 H Creatinine 9.79 #H 10.59 H Glucose Level 162 189 Calcium Level 8.4 8.2 L Blood Gas Specimen Source Blood arterial Arterial Blood Date Drawn 07/20/2017 7:47:08 PM Arterial Blood pH (Temp corrected) 6.927 *L Arterial Blood pCO2 (Temp correct) 19.7 L Arterial Blood pO2 (Temp corrected) 209.8 H Arterial Blood HCO3 4.0 *L Arterial Blood Base Excess -26.5 L Arterial Blood Oxygen Saturation 98.9 H Tommy Test ACCEPTAB Arterial Blood Gas Puncture Site Right Radial Arterial Blood Carboxyhemoglobin 1.0 Arterial Blood Methemoglobin 0.3 Blood Gas A-a O2 Differential 124.5 H Oxyhemoglobin Percent 97.6 Total Hemoglobin 7.9 L Blood Gas Temperature 37.0 Blood Gas Respiration Rate 30.0 Blood Gas Actual Respiration Rate 35 Blood Gas Modality VENT - AC/VC+ FiO2 50.0 Blood Gas Inspiratory Time 0.7 Blood Gas Tidal Volume 500.0 Blood Gas Low PEEP Setting 5.0 Blood Gas Inspiratory Pressure 26.0 Blood Gas Critical Value Read Back Jason GARCIA MD Blood Gas Notified Whom AA Blood Gas Notified Time 07/20/2017 8:00:25 PM White Blood Count 17.6 #H Red Blood Count 2.19 L Hemoglobin 7.0 L Hematocrit 21.2 L Mean Corpuscular Volume 96.8 Mean Corpuscular Hemoglobin 32.0 Mean Corpuscular Hemoglobin Concent 33.0 Red Cell Distribution Width 16.7 H Platelet Count 214 # Mean Platelet Volume 9.3 Neutrophils % Segmented Neutrophils % (Manual) 84 H Band Neutrophils % (Manual) 6 H Lymphocytes % Lymphocytes % (Manual) 5 L Monocytes % Monocytes % (Manual) 5 Eosinophils % Basophils % Nucleated Red Blood Cells % 1 H Neutrophils # Neutrophils # (Manual) 15.0 H Band Neutrophils # 1.0 H Absolute Lymphocytes (Manual) 0.8 Lymphocytes # Monocytes # Absolute Monocytes (Manual) 0.8 Eosinophils # Basophils # Nucleated Red Blood Cells # Platelet Estimate NORMAL Polychromasia 2+ Poikilocytosis 3+ Anisocytosis 2+ Macrocytosis 1+ Total Bilirubin 0.0 L Direct Bilirubin 0.00 Indirect Bilirubin 0.0 Aspartate Amino Transf (AST/SGOT) 128 H Alanine Aminotransferase (ALT/SGPT) 86 H Alkaline Phosphatase 156 H Ammonia 49 H Total Protein 6.1 Albumin 3.2 L Globulin 2.90 Albumin/Globulin Ratio 1.10 Test 07/20/17 22:51 07/20/17 23:38 07/21/17 02:05 07/21/17 05:00 Blood Gas Specimen Source Blood arterial Blood arterial Arterial Blood Date Drawn 07/20/2017 10:48:40 PM 07/21/2017 5:37:38 AM Arterial Blood pH (Temp corrected) 6.943 *L 6.980 *L Arterial Blood pCO2 (Temp correct) 19.8 L 15.6 L Arterial Blood pO2 (Temp corrected) 239.1 H 387.3 H Arterial Blood HCO3 4.2 *L 3.6 *L Arterial Blood Base Excess -26.0 L -25.9 L Arterial Blood Oxygen Saturation 99.0 H 99.5 H Tommy Test ACCEPTAB ACCEPTAB Arterial Blood Gas Puncture Site Right Radial Left Radial Arterial Blood Carboxyhemoglobin 1.0 1.0 Arterial Blood Methemoglobin 0.3 0.3 Blood Gas A-a O2 Differential 95.1 H Oxyhemoglobin Percent 97.7 98.2 Total Hemoglobin 7.8 L 7.2 L Blood Gas Temperature 37.0 37.0 Blood Gas Respiration Rate 30.0 30.0 Blood Gas Actual Respiration Rate 35 37 Blood Gas Modality VENT - AC/VC+ VENT - AC FiO2 50.0 40.0 Blood Gas Inspiratory Time 0.7 Blood Gas Tidal Volume 500.0 500.0 Blood Gas Low PEEP Setting 5.0 5.0 Blood Gas Inspiratory Pressure 33.0 Blood Gas Critical Value Read Back Leobardo MUJICA MD Blood Gas Notified Whom AA R H Blood Gas Notified Time 07/20/2017 11:02:53 PM 07/21/2017 5:51:05 AM Creatine Kinase 278 H Creatine Kinase Index 4.2 Creatinine Kinase MB (Mass) 11.60 H Troponin I 2.180 *H Bedside Glucose 198 Test 07/21/17 05:43 07/21/17 06:00 07/21/17 08:24 07/21/17 11:57 Bedside Glucose 156 128 White Blood Count 20.6 H Red Blood Count 2.05 L Hemoglobin 6.6 *L Hematocrit 19.9 L Mean Corpuscular Volume 97.1 Mean Corpuscular Hemoglobin 32.2 Mean Corpuscular Hemoglobin Concent 33.2 Red Cell Distribution Width 16.8 H Platelet Count 230 Mean Platelet Volume 9.2 Neutrophils % Segmented Neutrophils % (Manual) 75 Band Neutrophils % (Manual) 17 H Lymphocytes % Lymphocytes % (Manual) 1 L Monocytes % Monocytes % (Manual) 6 Eosinophils % Eosinophils % (Manual) 1 Basophils % Nucleated Red Blood Cells % 3 H Neutrophils # Neutrophils # (Manual) 16.2 H Band Neutrophils # 3.5 H Absolute Lymphocytes (Manual) 0.2 L Lymphocytes # Monocytes # Absolute Monocytes (Manual) 1.2 H Eosinophils # Basophils # Nucleated Red Blood Cells # Platelet Estimate NORMAL Polychromasia 3+ Poikilocytosis 3+ Anisocytosis 1+ Macrocytosis 1+ Sodium Level 139 Potassium Level 4.5 Chloride Level 101 Carbon Dioxide Level < 5 *L Anion Gap 38 H Blood Urea Nitrogen 92 H Creatinine 10.28 H Glucose Level 138 # Hemoglobin A1c 5.3 Calcium Level 7.8 L Total Bilirubin 0.0 L Direct Bilirubin 0.00 Indirect Bilirubin 0.0 Aspartate Amino Transf (AST/SGOT) 278 H Alanine Aminotransferase (ALT/SGPT) 161 H Alkaline Phosphatase 151 H Total Protein 5.9 L Albumin 3.1 L Globulin 2.80 Albumin/Globulin Ratio 1.10 Triglycerides Level 224 H Cholesterol Level 119 LDL Cholesterol, Calculated 2 HDL Cholesterol 72 Cholesterol/HDL Ratio 1.6 Thyroid Stimulating Hormone (TSH) 6.390 H Lactic Acid Level 9.3 *H Test 07/21/17 12:09 07/21/17 12:12 07/21/17 14:00 Bedside Glucose 146 130 Blood Gas Specimen Source Blood arterial Arterial Blood Date Drawn 07/21/2017 2:20:37 PM Arterial Blood pH (Temp corrected) 7.332 L Arterial Blood pCO2 (Temp correct) 20.3 L Arterial Blood pO2 (Temp corrected) 121.0 H Arterial Blood HCO3 10.5 L Arterial Blood Base Excess -13.6 L Arterial Blood Oxygen Saturation 97.6 Tommy Test ACCEPTAB Arterial Blood Gas Puncture Site Right Radial Arterial Blood Carboxyhemoglobin 0.3 Arterial Blood Methemoglobin 0.3 Blood Gas A-a O2 Differential 69.1 H Oxyhemoglobin Percent 97.0 Total Hemoglobin 9.6 L Blood Gas Temperature 37.0 Blood Gas Respiration Rate 30.0 Blood Gas Actual Respiration Rate 30 Blood Gas Modality VENT - AC FiO2 30.0 Blood Gas Tidal Volume 500.0 Blood Gas Low PEEP Setting 5.0 Blood Gas Notified Whom JLD Blood Gas Notified Time 07/21/2017 2:35:40 PM Medications Medications Current Medications Ondansetron HCl (Zofran Inj) 4 mg Q6H PRN IV NAUSEA AND/OR VOMITING; Start 07/20/17 at 12:00 Acetaminophen (Tylenol Liquid) 650 mg Q6H PRN PO PAIN LEVEL 1-3 OR FEVER; Start 07/20/17 at 12:00 Acetaminophen (Tylenol Tab) 650 mg Q6H PRN PO PAIN LEVEL 1-3 OR FEVER; Start 07/20/17 at 12:00 Docusate Sodium (Colace) 100 mg Q12H PRN PO CONSTIPATION; Start 07/20/17 at 12: 00 Magnesium Hydroxide (Milk Of Mag) 30 ml DAILY PRN PO CONSTIPATION; Start at 12:00 Bisacodyl (Dulcolax) 5 mg DAILY PRN PO CONSTIPATION; Start 07/20/17 at 12:00 Acetaminophen/ Hydrocodone Bitart ([place] (5/325)) 1 tab Q6H PRN PO MODERATE PAIN LEVEL 4-6; Start 07/20/17 at 16:00 Morphine Sulfate (morphine) 2 mg Q4H PRN IV SEVERE PAIN LEVEL 7-10; Start 07/20 at 16:00 Sodium Biphosphate/ Sodium Phosphate (Fleet Enema) 133 ml DAILY PRN [place] CONSTIPATION; Start 07/20/17 at 16:00 Famotidine (Pepcid Iv) 20 mg Q48H IV Last administered on 07/20/17 21:14; Admin Dose 20 MG; Start 07/20/17 at 21:00 Lorazepam (Ativan) 0.5 mg Q6H PRN IV ANXIETY; Start 07/20/17 at 16:00 Nitroglycerin 1 tab 1 tab Q5M PRN SL ANGINA; Start 07/20/17 at 16:00 Ciprofloxacin/ Dextrose 200 ml @ 200 mls/hr Q24H IVPB Last administered on 20:50; Admin Dose 200 MLS/HR; Start 07/20/17 at 20:00 Metronidazole (Flagyl 500 Mg (Pmx)) 100 ml @ 100 mls/hr Q6 IVPB Last administered on 07/21/17 12:16; Admin Dose 100 MLS/HR; Start 07/20/17 at 19:00 Diagnostic Test (Pha) (Accu-Chek) 1 ea 02 XX Last administered on 07/21/17 02: 47; Admin Dose 1 EA; Start 07/21/17 at 02:00 Insulin Aspart (Novolog Insulin Pen) NOVOLOG *MILD* ALGORI... Q4 SC Last administered on 07/21/17 05:46; Admin Dose 1 UNIT; Start 07/20/17 at 21:00 Miscellaneous Information 1 ea NOTE XX ; Start 07/20/17 at 18:00 Glucose (Glutose) 15 gm Q15M PRN PO DECREASED GLUCOSE; Start 07/20/17 at 18:00 Glucose (Glutose) 22.5 gm Q15M PRN PO DECREASED GLUCOSE; Start 07/20/17 at 18: 00 Dextrose (D50w Syringe) 25 ml Q15M PRN IV DECREASED GLUCOSE; Start 07/20/17 at 18:00 Dextrose (D50w Syringe) 50 ml Q15M PRN IV DECREASED GLUCOSE; Start 07/20/17 at 18:00 Glucagon (Glucagen) 1 mg Q15M PRN IM DECREASED GLUCOSE; Start 07/20/17 at 18:00 Glucose 15 gm 15 gm Q15M PRN BUCCAL DECREASED GLUCOSE; Start 07/20/17 at 18:00 Cefepime HCl 50 ml @ 100 mls/hr Q24H IVPB ; Start 07/21/17 at 17:00 Phenylephrine HCl 40 mg/Dextrose 500 ml @ 75 mls/hr TITRATE IV Last administered on 07/21/17 05:47; Admin Dose 45 MLS/HR; Start 07/21/17 at 00:00 Norepinephrine 32 mg/Dextrose 500 ml @ 0.93 mls/hr TITRATE PRN IV BLOOD PRESSURE SUPPORT Last administered on 07/21/17 05:45; Admin Dose 28.12 MLS/HR; Start 07/21/17 at 02:30 Sodium Bicarbonate 150 meq/Sodium Chloride 1,150 ml @ 60 mls/hr [id number] IV Last administered on 07/21/17 08:08; Admin Dose 60 MLS/HR; Start 07/21/17 at 08 :00 Propofol (Diprivan) 100 ml @ 2.712 mls/ hr Q12H IV Last administered on t 10:00; Admin Dose 13.56 MLS/HR; Start 07/21/17 at 10:00 JAMA ROCHA Jul 21, 2017 15:16
--- NOTE | 2017-07-21 17:02 | RADRPT ---
Echocardiogram Report Patient Name: JOSIAH STROUD Gender: Female Date: 1975 Study Date: 20-Jul-2017 Telephone Order Supervisor: [facility] Location: [facility] Ref. Physician: AKBAR GRAHAM Quality: Adequate Procedures: Transthoracic echocardiogram with complete 2D, M-Mode, and doppler examination. Indications: Shock, elevated BNP. 2D/M Mode Doppler Measurement Value Normal Ranges Measurement Value Normal Ranges LVIDd 2D 4.2 3.5 - 5.6 cm AV Peak Narendra 1.9 m/sec LVIDs 2D 2.5 2.1 - 4.1 cm AV Peak PG 15.0 mmHg FS 2D 40.4 % LVOT Peak Narendra 1.1 m/sec LVPWd 2D 1.3 0.6 - 1.1 cm LVOT Peak PG 5.0 mmHg IVSd 2D 1.4 0.6 - 1.1 cm MV E Peak Narendra 1.0 m/sec IVS/LVPW 2D 1.0 MV A Peak Narendra 1.1 m/sec AoR Diam 2D 2.7 2.0 - 3.7 cm MV E/A 0.8 LA/Ao 2D 1 0 - 1 MV Decel Time 120 msec EDV 2D 72.0 cm3 MV E/A 0.8 ESV 2D 15.3 cm3 TR Peak Narendra 3.7 m/sec LA Dimen 2D 3.7 2.3 - 4.0 cm TR Peak PG 54.0 mmHg RVSP 62.0 mmHg Findings Left Ventricle: Normal left ventricular systolic function. Normal left ventricular cavity size. Moderate concentric left ventricular hypertrophy. Ejection fraction is visually estimated at 6065 %. Tissue Doppler/Mitral Doppler indices are consistent with impaired relaxation (Stage I diastolic dysfunction). Right Ventricle: Normal right ventricular size. Normal right ventricular systolic function. Left Atrium: The left atrium is normal in size. Right Atrium: The right atrium is normal in size. Mitral Valve: Normal appearance and function of the mitral valve with trace physiologic regurgitation. Aortic Valve: Normal appearance of the aortic valve. No significant aortic stenosis or insufficiency. Tricuspid Valve: Normal appearance of the tricuspid valve. Estimated peak PA systolic pressure 62 mmHg. There is mild to moderate tricuspid regurgitation. Pericardium: Normal pericardium with no significant pericardial effusion. Aorta: Normal aortic root. IVC: Inferior vena cava with poor respiratory collapse, however, patient on ventilator. Conclusions 1.The left ventricle is normal in size and systolic function. 2.Estimated left ventricular ejection fraction of 60-65%. 3.Moderate concentric left ventricular hypertrophy. Grade 1 diastolic dysfunction. 4.Pulmonary hypertension with estimated RVSP of 64 mmHg. Electronically Signed By: Andrew Lundy 21-Jul-2017 17:00:53 -0800 Patient Name: JOSIAH STROUD Study Date: 20-Jul-2017 [id number]
[2017-07-21] MEDS: CEFEPIME 1GM/50 ML IVPB SCH (17:41)
[2017-07-21] MEDS: CIPROFLOXACIN 400MG/D5W 200 ML IVPB SCH (20:58)
[2017-07-22] VITALS (103 sets, daily range): BP systolic 81–172; BP diastolic 44–74; PULSE 54–88; RESP 23–32
[2017-07-22] MEDS: INSULIN ASPART [NOVOLOG] 3 ML PEN SC SCH ×6 (01:00→21:00)
[2017-07-22] MEDS: IPRATROPIUM (HFA) 12.9 GM INHALER INH SCH ×6 (01:10→21:14)
[2017-07-22] MEDS: ALBUTEROL HFA 8 GM INHALER INH SCH ×6 (01:11→21:14)
[2017-07-22] MEDS: ACCU-CHEK XX SCH (02:00)
[2017-07-22] MEDS: SODIUM BICARBONATE (IV ADD) 150 MEQ in SOD CHLORIDE 0.9% 1,000 ML IV SCH ×2 (03:49→22:06)
[2017-07-22] MEDS: metroNIDAZOLE 500 MG/NS (PMX) 100 ML IVPB SCH ×4 (05:32→23:51)
[2017-07-22 06:56] LABS: ABNORMAL IP MESSAGE 1; BASOPHILS % 0.2 % (0.0-2.0); EOSINOPHILS % 0.1 % (0.0-7.0); HEMOGLOBIN 7.9 g/dl (12.0-16.0); LYMPHOCYTES # 0.5 10^3/ul (0.8-2.9); LYMPHOCYTES % 3.9 % (15.0-51.0); MEAN CORPUSCULAR HGB CONC 34.3 g/dl (32.0-37.0); MEAN CORPUSCULAR VOLUME 90.2 fl (82.0-101.0); MEAN PLATELET VOLUME 10.4 fl (7.4-10.4); MONOCYTE # 0.7 10^3/ul (0.3-0.9); MONOCYTES % 5.5 % (0.0-11.0); NEUTROPHIL # 11.6 10^3/ul (1.6-7.5); NEUTROPHILS % 89.1 % (39.0-77.0); NUCLEATED RED BLOOD CELLS # 0.3 10^3/ul (0.0-0.0); NUCLEATED RED BLOOD CELLS% 2.5 /100WBC (0.0-0.0); PLATELET COUNT 120 10^3/UL (140-415); RED BLOOD COUNT 2.55 10^6/ul (4.20-5.40); RED CELL DISTRIBUTION WIDTH 16.6 % (11.5-14.5); WHITE BLOOD COUNT 13.1 10^3/ul (4.8-10.8)
[2017-07-22 07:00] LABS: POSITIVE DIFF @See below
[2017-07-22 07:26] LABS: ALBUMIN 2.3 g/dl (3.3-4.9); ALBUMIN/GLOBULIN RATIO 1.04; CALCIUM 6.7 mg/dl (8.4-10.2); CREATININE 7.91 mg/dl (0.44-1.00); POTASSIUM 3.3 mmol/L (3.5-5.1); TOTAL PROTEIN 4.5 g/dl (6.1-8.1)
[2017-07-22] MEDS: PROPOFOL 100 ML IV SCH ×4 (08:26→23:49)
[2017-07-22 08:43] LABS: AADO2 Arterial 68.3 mmHg (7.0-24.0); Allen Test ACCEPTAB; Arterial Base Excess -11.8 mmol/L (-3.0-3); Arterial COHb 0.3 % (0.0-3.0); Arterial Fraction of Oxyhgb 97.1 % (93.0-99.0); Arterial HCO3 11.2 mmol/L (22.0-26.0); Arterial MetHb 0.3 % (0.0-1.5); Arterial Total Hemglobin 8.6 g/dl (12.0-18.0); MODE VENT - AC
--- NOTE | 2017-07-22 08:44 | RADRPT ---
PROCEDURE: XR Chest. CLINICAL INDICATION: Shortness of breath. TECHNIQUE: Single frontal view. COMPARISON: 07/21/2017. FINDINGS: The endotracheal tube, nasogastric tube, and left internal jugular vein catheter remain in satisfact ory position. There is mild atelectasis at the lung bases. The lungs are otherwise clear. The heart size is normal. There is no pleural effusion. There is no pneumothorax. IMPRESSION: 1. No change from the 07/21/2017 chest radiograph. RPTAT: QQ .Vincent Young MD, MD Date Time Electronically viewed and signed by .Vincent Young MD, MD on 07/22/2017 08:44 .R/
[2017-07-22] MEDS ORDERED: ALBUMIN HUMAN 25% 100 ML IV ONE (10:00)
--- NOTE | 2017-07-22 10:05 | PN ---
Date/Time of Note Date/Time of Note DATE: 07/22/17 TIME: 09:59 Assessment/Plan VTE Prophylaxis VTE Prophylaxis Intervention: SCD's Lines/Catheters IV [facility]ter [facility]from [facility] HD line Urinary Cath still in place: Yes Reason Cath still needed: urinary retention Assessment/Plan Chief Complaint/Hosp Course S: Patient still intubated, received dialysis yesterday and getting another session right now. Received 2 units PRBC transfusion yesterday as well. On levofed only right now. No fevers, stool is soft. GENERAL: Patient lying in bed, intubated NECK: Supple. HEENT: Pupils equal, round, react to light. Extraocular muscles intact. LUNGS: Slightly distant breath sounds bilaterally. CARDIOVASCULAR: S1, S2 heard. No rubs, gallops. ABDOMEN: Soft, nontender, nondistended. Normal bowel sounds. No rebound or guarding. MUSCULOSKELETAL: Trace pitting edema bilateral lower extremities to the mid calves. Slightly swollen. NEUROLOGIC: Unable to fully assess because patient is intubated at this time. ASSESSMENT AND PLAN: 41-year-old female coming in with shortness of breath with respiratory failure, now intubated status post cardiac arrest with return of spontaneous circulation, supraventricular tachycardia, severe metabolic lactic acidosis, and renal insufficiency status post emergent dialysis. 1. Status post arrest -occurred in the emergency room for approximately 5 minutes - continue intensive care unit. Continue intubation. Follow-up pulmonary consult recommendations. - Monitor heart rate and vital signs very carefully. Consider cardiology consult. - Follow-up results of 2D echocardiogram as well. - Consider EEG as well and consider neurology consult. 2. Severe renal insufficiency with subsequent severe metabolic lactic acidosis acidosis-still present but still quite elevated lactic acid levels, although bicarb is slightly improved. Unclear if this was all from possible metformin toxicity? Presently getting dialysis per renal recommendations. Also on IV fluids with sodium bicarb. - again, continue IV fluids with sodium bicarb. - Follow renal recommendations. Monitor urine output and BMP as well. - Continue to trend lactic acid 3. Type 2 diabetes-A1c equals 5.3 insulin sliding scale. 4. Respiratory failure. Again, status post intubation. - follow-up pulmonary on consult for mechanical ventilation. -Continue broad-spectrum antibiotics. 5. Enteritis and colitis. Again, this was found on the CT scan. Enteritis, appears to be involving the stomach and duodenum. Colitis appears to be more along the large intestine, -Continue broad-spectrum antibiotics with Cipro and Flagyl to the regimen as well. Consider GI consult. -We will go ahead and check stool studies including Clostridium difficile, O&P, stool culture 6. Anemia: Unclear source -again status post PRBC transfusion 2 yesterday, hemoglobin more stable today. No present signs of any bleeding -Monitor, Follow-up stool occult test, would recommend holding off on anticoagulants for now until we know further where the anemia is possibly coming from. 7. Gastrointestinal prophylaxis. H2 julien. 8. Deep venous thrombosis prophylaxis. Sequential compression devices. Critical care time spent on patient care today equals 45 minutes. Problems: Exam/Review of Systems Vital Signs Vitals Vital Signs Date Time Temp Pulse Resp B/P Pulse Ox O2 Delivery O2 Flow Rate FiO2 07/22/17 09:45 71 30 100 07/22/17 09:30 97/57 Mechanical Ventilator 07/22/17 08:00 30 07/22/17 08:00 98.6 07/21/17 01:19 15.0 Intake and Output 07/21/17 07/21/17 07/22/17 14:59 22:59 06:59 Intake Total 1378.32 ml 633.922 ml 789.264 ml Output Total 4000 ml 25 ml 150 ml Balance -2621.68 ml 608.922 ml 639.264 ml Results Result Diagram: 07/22/17 0400 07/22/17 0400 Results 24 hrs Laboratory Tests Test 07/21/17 11:57 07/21/17 12:09 07/21/17 12:12 07/21/17 14:00 Lactic Acid Level 9.3 *H Bedside Glucose 146 130 Blood Gas Specimen Source Blood arterial Arterial Blood Date Drawn 07/21/2017 2:20:37 PM Arterial Blood pH (Temp corrected) 7.332 L Arterial Blood pCO2 (Temp correct) 20.3 L Arterial Blood pO2 (Temp corrected) 121.0 H Arterial Blood HCO3 10.5 L Arterial Blood Base Excess -13.6 L Arterial Blood Oxygen Saturation 97.6 Tommy Test ACCEPTAB Arterial Blood Gas Puncture Site Right Radial Arterial Blood Carboxyhemoglobin 0.3 Arterial Blood Methemoglobin 0.3 Blood Gas A-a O2 Differential 69.1 H Oxyhemoglobin Percent 97.0 Total Hemoglobin 9.6 L Blood Gas Temperature 37.0 Blood Gas Respiration Rate 30.0 Blood Gas Actual Respiration Rate 30 Blood Gas Modality VENT - AC FiO2 30.0 Blood Gas Tidal Volume 500.0 Blood Gas Low PEEP Setting 5.0 Blood Gas Notified Whom JLD Blood Gas Notified Time 07/21/2017 2:35:40 PM Test 07/21/17 17:39 07/21/17 18:28 07/21/17 20:11 07/22/17 00:23 Bedside Glucose 86 102 Lactic Acid Level 11.3 *H 11.1 *H Test 07/22/17 00:24 07/22/17 04:00 07/22/17 05:30 07/22/17 05:38 Bedside Glucose 102 94 White Blood Count 13.1 #H Red Blood Count 2.55 #L Hemoglobin 7.9 L Hematocrit 23.0 L Mean Corpuscular Volume 90.2 Mean Corpuscular Hemoglobin 31.0 Mean Corpuscular Hemoglobin Concent 34.3 Red Cell Distribution Width 16.6 H Platelet Count 120 #L Mean Platelet Volume 10.4 Neutrophils % 89.1 H Lymphocytes % 3.9 L Monocytes % 5.5 Eosinophils % 0.1 Basophils % 0.2 Nucleated Red Blood Cells % 2.5 H Neutrophils # 11.6 H Lymphocytes # 0.5 L Monocytes # 0.7 Eosinophils # 0.0 Basophils # 0.0 Nucleated Red Blood Cells # 0.3 H Sodium Level 143 Potassium Level 3.3 L Chloride Level 101 Carbon Dioxide Level 14 L Anion Gap 31 #H Blood Urea Nitrogen 65 H Creatinine 7.91 #H Glucose Level 84 # Calcium Level 6.7 L Total Bilirubin 0.0 L Direct Bilirubin 0.00 Indirect Bilirubin 0.0 Aspartate Amino Transf (AST/SGOT) 371 H Alanine Aminotransferase (ALT/SGPT) 240 H Alkaline Phosphatase 148 H Total Protein 4.5 #L Albumin 2.3 L Globulin 2.20 Albumin/Globulin Ratio 1.04 Lab Scanned Report BLOOD TRANSFUSION Test 07/22/17 05:40 07/22/17 07:00 07/22/17 08:22 Lactic Acid Level 11.6 *H Blood Gas Specimen Source Blood arterial Arterial Blood Date Drawn 07/22/2017 8:25:47 AM Arterial Blood pH (Temp corrected) 7.409 Arterial Blood pCO2 (Temp correct) 18.1 L Arterial Blood pO2 (Temp corrected) 124.3 H Arterial Blood HCO3 11.2 L Arterial Blood Base Excess -11.8 L Arterial Blood Oxygen Saturation 97.7 Tommy Test ACCEPTAB Arterial Blood Gas Puncture Site Right Radial Arterial Blood Carboxyhemoglobin 0.3 Arterial Blood Methemoglobin 0.3 Blood Gas A-a O2 Differential 68.3 H Oxyhemoglobin Percent 97.1 Total Hemoglobin 8.6 L Blood Gas Temperature 37.0 Blood Gas Respiration Rate 30.0 Blood Gas Actual Respiration Rate 30 Blood Gas Modality VENT - AC FiO2 30.0 Blood Gas Tidal Volume 500.0 Blood Gas Low PEEP Setting 5.0 Blood Gas Notified Whom AILEEN NEWMAN Blood Gas Notified Time 07/22/2017 8:43:07 AM Bedside Glucose 94 Medications Medications Current Medications Ondansetron HCl (Zofran Inj) 4 mg Q6H PRN IV NAUSEA AND/OR VOMITING; Start 07/20/17 at 12:00 Acetaminophen (Tylenol Liquid) 650 mg Q6H PRN PO PAIN LEVEL 1-3 OR FEVER; Start 07/20/17 at 12:00 Acetaminophen (Tylenol Tab) 650 mg Q6H PRN PO PAIN LEVEL 1-3 OR FEVER; Start 07/20/17 at 12:00 Docusate Sodium (Colace) 100 mg Q12H PRN PO CONSTIPATION; Start 07/20/17 at 12: 00 Magnesium Hydroxide (Milk Of Mag) 30 ml DAILY PRN PO CONSTIPATION; Start at 12:00 Bisacodyl (Dulcolax) 5 mg DAILY PRN PO CONSTIPATION; Start 07/20/17 at 12:00 Acetaminophen/ Hydrocodone Bitart ([place] (5/325)) 1 tab Q6H PRN PO MODERATE PAIN LEVEL 4-6; Start 07/20/17 at 16:00 Morphine Sulfate (morphine) 2 mg Q4H PRN IV SEVERE PAIN LEVEL 7-10; Start 07/20 at 16:00 Sodium Biphosphate/ Sodium Phosphate (Fleet Enema) 133 ml DAILY PRN [place] CONSTIPATION; Start 07/20/17 at 16:00 Famotidine (Pepcid Iv) 20 mg Q48H IV Last administered on 07/20/17t 21:14; Admin Dose 20 MG; Start 07/20/17 at 21:00 Lorazepam (Ativan) 0.5 mg Q6H PRN IV ANXIETY; Start 07/20/17 at 16:00 Nitroglycerin 1 tab 1 tab Q5M PRN SL ANGINA; Start 07/20/17 at 16:00 Ciprofloxacin/ Dextrose 200 ml @ 200 mls/hr Q24H IVPB Last administered on 20:58; Admin Dose 200 MLS/HR; Start 07/20/17 at 20:00 Metronidazole (Flagyl 500 Mg (Pmx)) 100 ml @ 100 mls/hr Q6 IVPB Last administered on 07/22/17 05:32; Admin Dose 100 MLS/HR; Start 07/20/17 at 19:00 Diagnostic Test (Pha) (Accu-Chek) 1 ea 02 XX Last administered on 07/21/17 02: 47; Admin Dose 1 EA; Start 07/21/17 at 02:00 Insulin Aspart (Novolog Insulin Pen) NOVOLOG *MILD* ALGORI... Q4 SC Last administered on 07/21/17 05:46; Admin Dose 1 UNIT; Start 07/20/17 at 21:00 Miscellaneous Information 1 ea NOTE XX ; Start 07/20/17 at 18:00 Glucose (Glutose) 15 gm Q15M PRN PO DECREASED GLUCOSE; Start 07/20/17 at 18:00 Glucose (Glutose) 22.5 gm Q15M PRN PO DECREASED GLUCOSE; Start 07/20/17 at 18: 00 Dextrose (D50w Syringe) 25 ml Q15M PRN IV DECREASED GLUCOSE; Start 07/20/17 at 18:00 Dextrose (D50w Syringe) 50 ml Q15M PRN IV DECREASED GLUCOSE; Start 07/20/17 at 18:00 Glucagon (Glucagen) 1 mg Q15M PRN IM DECREASED GLUCOSE; Start 07/20/17 at 18:00 Glucose 15 gm 15 gm Q15M PRN BUCCAL DECREASED GLUCOSE; Start 07/20/17 at 18:00 Cefepime HCl 50 ml @ 100 mls/hr Q24H IVPB Last administered on 07/21/17 17:41 ; Admin Dose 100 MLS/HR; Start 07/21/17 at 17:00 Phenylephrine HCl 40 mg/Dextrose 500 ml @ 75 mls/hr TITRATE IV Last administered on 07/21/17 05:47; Admin Dose 45 MLS/HR; Start 07/21/17 at 00:00 Norepinephrine 32 mg/Dextrose 500 ml @ 0.93 mls/hr TITRATE PRN IV BLOOD PRESSURE SUPPORT Last administered on 07/21/17 05:45; Admin Dose 28.12 MLS/HR; Start 07/21/17 at 02:30 Sodium Bicarbonate 150 meq/Sodium Chloride 1,150 ml @ 60 mls/hr [id number] IV Last administered on 07/22/17 03:49; Admin Dose 60 MLS/HR; Start 07/21/17 at 08 :00 Propofol 100 ml @ 2.712 mls/ hr Q12H IV Last administered on 07/22/17 08:26; Admin Dose 16.272 MLS/HR; Start 07/21/17 at 10:00 Albumin Human (Albumin Human 25%) 100 ml @ 100 mls/hr ONCE ONCE IV Last administered on 07/22/17 09:43; Admin Dose 100 MLS/HR; Start 07/22/17 at 10:00 ; Stop 07/22/17 at 10:59 AKBAR GRAHAM Jul 22, 2017 10:05
--- NOTE | 2017-07-22 14:22 | CONS ---
Date/Time of Note Date/Time of Note DATE: 07/22/17 TIME: 14:20 Assessment/Plan Assessment/Plan Chief Complaint/Hosp Course 1. ALEXIA. 2. Anasarca. 3. Hyperkalemia, resolved, hypokalemia now. 4. Metabolic acidosis, better. 5. Severe anemia. 6. The patient has elevated BNP. 7. Hypoglycemia. 8. Obesity. 9. Underlying chronic kidney disease. 10. non compliance 11. Acute hypoxic respiratory failure Problems: Additional Assessment/Plan 1. continue Hd 2. Continue current regime Consultation Date/Type/Reason Admit Date/Time Jul 20, 2017 at 15:54 Initial Consult Date 07/19/2017 Type of Consultation: nephrology 24 HR Interval Summary Subjective hx not possible: pt non-verbal, pt critical Exam/Review of Systems Vital Signs Vitals Vital Signs Date Time Temp Pulse Resp B/P Pulse Ox O2 Delivery O2 Flow Rate FiO2 07/22/17 12:30 70 30 122/51 99 Mechanical Ventilator 07/22/17 12:00 97.9 07/22/17 08:00 30 07/21/17 01:19 15.0 Intake and Output 07/21/17 07/21/17 07/22/17 15:00 23:00 07:00 Intake Total 1182.19 ml 689.340 ml 788.606 ml Output Total 4000 ml 35 ml 140 ml Balance -2817.81 ml 654.340 ml 648.606 ml Exam sedated with propofol Head: normocephalic Respiratory: diminished breath sounds Cardiovascular: regular rate and rhythm Gastrointestinal: soft Skin: other (numerous skin lesions ) Results Result Diagram: 07/22/17 0400 07/22/17 0400 Results 24 hrs Laboratory Tests Test 07/21/17 17:39 07/21/17 18:28 07/21/17 20:11 07/22/17 00:23 Bedside Glucose 86 102 Lactic Acid Level 11.3 *H 11.1 *H Test 07/22/17 00:24 07/22/17 04:00 07/22/17 05:30 07/22/17 05:38 Bedside Glucose 102 94 White Blood Count 13.1 #H Red Blood Count 2.55 #L Hemoglobin 7.9 L Hematocrit 23.0 L Mean Corpuscular Volume 90.2 Mean Corpuscular Hemoglobin 31.0 Mean Corpuscular Hemoglobin Concent 34.3 Red Cell Distribution Width 16.6 H Platelet Count 120 #L Mean Platelet Volume 10.4 Neutrophils % 89.1 H Lymphocytes % 3.9 L Monocytes % 5.5 Eosinophils % 0.1 Basophils % 0.2 Nucleated Red Blood Cells % 2.5 H Neutrophils # 11.6 H Lymphocytes # 0.5 L Monocytes # 0.7 Eosinophils # 0.0 Basophils # 0.0 Nucleated Red Blood Cells # 0.3 H Sodium Level 143 Potassium Level 3.3 L Chloride Level 101 Carbon Dioxide Level 14 L Anion Gap 31 #H Blood Urea Nitrogen 65 H Creatinine 7.91 #H Glucose Level 84 # Calcium Level 6.7 L Total Bilirubin 0.0 L Direct Bilirubin 0.00 Indirect Bilirubin 0.0 Aspartate Amino Transf (AST/SGOT) 371 H Alanine Aminotransferase (ALT/SGPT) 240 H Alkaline Phosphatase 148 H Total Protein 4.5 #L Albumin 2.3 L Globulin 2.20 Albumin/Globulin Ratio 1.04 Lab Scanned Report BLOOD TRANSFUSION Test 07/22/17 05:40 07/22/17 07:00 07/22/17 08:22 07/22/17 12:00 Lactic Acid Level 11.6 *H 8.2 *H Stool Occult Blood POSITIVE Blood Gas Specimen Source Blood arterial Arterial Blood Date Drawn 07/22/2017 8:25:47 AM Arterial Blood pH (Temp corrected) 7.409 Arterial Blood pCO2 (Temp correct) 18.1 L Arterial Blood pO2 (Temp corrected) 124.3 H Arterial Blood HCO3 11.2 L Arterial Blood Base Excess -11.8 L Arterial Blood Oxygen Saturation 97.7 Tommy Test ACCEPTAB Arterial Blood Gas Puncture Site Right Radial Arterial Blood Carboxyhemoglobin 0.3 Arterial Blood Methemoglobin 0.3 Blood Gas A-a O2 Differential 68.3 H Oxyhemoglobin Percent 97.1 Total Hemoglobin 8.6 L Blood Gas Temperature 37.0 Blood Gas Respiration Rate 30.0 Blood Gas Actual Respiration Rate 30 Blood Gas Modality VENT - AC FiO2 30.0 Blood Gas Tidal Volume 500.0 Blood Gas Low PEEP Setting 5.0 Blood Gas Notified Whom AILEEN NEWMAN Blood Gas Notified Time 07/22/2017 8:43:07 AM Bedside Glucose 94 Test 07/22/17 12:24 Bedside Glucose 109 Medications Medications Current Medications Ondansetron HCl (Zofran Inj) 4 mg Q6H PRN IV NAUSEA AND/OR VOMITING; Start 07/20/17 at 12:00 Acetaminophen (Tylenol Liquid) 650 mg Q6H PRN PO PAIN LEVEL 1-3 OR FEVER; Start 07/20/17 at 12:00 Acetaminophen (Tylenol Tab) 650 mg Q6H PRN PO PAIN LEVEL 1-3 OR FEVER; Start 07/20/17 at 12:00 Docusate Sodium (Colace) 100 mg Q12H PRN PO CONSTIPATION; Start 07/20/17 at 12: 00 Magnesium Hydroxide (Milk Of Mag) 30 ml DAILY PRN PO CONSTIPATION; Start at 12:00 Bisacodyl (Dulcolax) 5 mg DAILY PRN PO CONSTIPATION; Start 07/20/17 at 12:00 Acetaminophen/ Hydrocodone Bitart ([place] (5/325)) 1 tab Q6H PRN PO MODERATE PAIN LEVEL 4-6; Start 07/20/17 at 16:00 Morphine Sulfate (morphine) 2 mg Q4H PRN IV SEVERE PAIN LEVEL 7-10; Start 07/20 at 16:00 Sodium Biphosphate/ Sodium Phosphate (Fleet Enema) 133 ml DAILY PRN [place] CONSTIPATION; Start 07/20/17 at 16:00 Famotidine (Pepcid Iv) 20 mg Q48H IV Last administered on 07/20/17 21:14; Admin Dose 20 MG; Start 07/20/17 at 21:00 Lorazepam (Ativan) 0.5 mg Q6H PRN IV ANXIETY; Start 07/20/17 at 16:00 Nitroglycerin 1 tab 1 tab Q5M PRN SL ANGINA; Start 07/20/17 at 16:00 Ciprofloxacin/ Dextrose 200 ml @ 200 mls/hr Q24H IVPB Last administered on 20:58; Admin Dose 200 MLS/HR; Start 07/20/17 at 20:00 Metronidazole (Flagyl 500 Mg (Pmx)) 100 ml @ 100 mls/hr Q6 IVPB Last administered on 07/22/17 12:33; Admin Dose 100 MLS/HR; Start 07/20/17 at 19:00 Diagnostic Test (Pha) (Accu-Chek) 1 ea 02 XX Last administered on 07/21/17 02: 47; Admin Dose 1 EA; Start 07/21/17 at 02:00 Insulin Aspart (Novolog Insulin Pen) NOVOLOG *MILD* ALGORI... Q4 SC Last administered on 07/21/17 05:46; Admin Dose 1 UNIT; Start 07/20/17 at 21:00 Miscellaneous Information 1 ea NOTE XX ; Start 07/20/17 at 18:00 Glucose (Glutose) 15 gm Q15M PRN PO DECREASED GLUCOSE; Start 07/20/17 at 18:00 Glucose (Glutose) 22.5 gm Q15M PRN PO DECREASED GLUCOSE; Start 07/20/17 at 18: 00 Dextrose (D50w Syringe) 25 ml Q15M PRN IV DECREASED GLUCOSE; Start 07/20/17 at 18:00 Dextrose (D50w Syringe) 50 ml Q15M PRN IV DECREASED GLUCOSE; Start 07/20/17 at 18:00 Glucagon (Glucagen) 1 mg Q15M PRN IM DECREASED GLUCOSE; Start 07/20/17 at 18:00 Glucose 15 gm 15 gm Q15M PRN BUCCAL DECREASED GLUCOSE; Start 07/20/17 at 18:00 Cefepime HCl 50 ml @ 100 mls/hr Q24H IVPB Last administered on 07/21/17 17:41 ; Admin Dose 100 MLS/HR; Start 07/21/17 at 17:00 Phenylephrine HCl 40 mg/Dextrose 500 ml @ 75 mls/hr TITRATE IV Last administered on 07/21/17 05:47; Admin Dose 45 MLS/HR; Start 07/21/17 at 00:00 Norepinephrine 32 mg/Dextrose 500 ml @ 0.93 mls/hr TITRATE PRN IV BLOOD PRESSURE SUPPORT Last administered on 07/21/17 05:45; Admin Dose 28.12 MLS/HR; Start 07/21/17 at 02:30 Sodium Bicarbonate 150 meq/Sodium Chloride 1,150 ml @ 60 mls/hr [id number] IV Last administered on 07/22/17 03:49; Admin Dose 60 MLS/HR; Start 07/21/17 at 08 :00 Propofol (Diprivan) 100 ml @ 2.712 mls/ hr Q12H IV Last administered on 14:02; Admin Dose 18.984 MLS/HR; Start 07/21/17 at 10:00 JAMA ROCHA Jul 22, 2017 14:22
--- NOTE | 2017-07-22 14:37 | CONS ---
Date/Time of Note Date/Time of Note DATE: 07/22/17 TIME: 14:34 Consult Date/Type/Reason Admit Date/Time Jul 20, 2017 at 15:54 Initial Consult Date Type of Consultation: Pulm/CCM Subjective Overall improved mildly. Sedated on vent. s/p HD Objective Vital Signs Date Time Temp Pulse Resp B/P Pulse Ox O2 Delivery O2 Flow Rate FiO2 07/22/17 12:30 70 30 122/51 99 Mechanical Ventilator 07/22/17 12:00 97.9 07/22/17 08:00 30 07/21/17 01:19 15.0 Intake and Output 07/21/17 07/21/17 07/22/17 15:00 23:00 07:00 Intake Total 1182.19 ml 689.340 ml 788.606 ml Output Total 4000 ml 35 ml 140 ml Balance -2817.81 ml 654.340 ml 648.606 ml Exam HEENT: Neck supple; no JVD; no LAD; + ET tube CVS: RRR, S1 and S2 CHEST: Clear ABD: Soft, NT, + BS EXT: No c/c; LE PVD Results/Medications Result Diagram: 07/22/17 0400 07/22/17 0400 Results 24 hrs Laboratory Tests Test 07/21/17 17:39 07/21/17 18:28 07/21/17 20:11 07/22/17 00:23 Bedside Glucose 86 102 Lactic Acid Level 11.3 *H 11.1 *H Test 07/22/17 00:24 07/22/17 04:00 07/22/17 05:30 07/22/17 05:38 Bedside Glucose 102 94 White Blood Count 13.1 #H Red Blood Count 2.55 #L Hemoglobin 7.9 L Hematocrit 23.0 L Mean Corpuscular Volume 90.2 Mean Corpuscular Hemoglobin 31.0 Mean Corpuscular Hemoglobin Concent 34.3 Red Cell Distribution Width 16.6 H Platelet Count 120 #L Mean Platelet Volume 10.4 Neutrophils % 89.1 H Lymphocytes % 3.9 L Monocytes % 5.5 Eosinophils % 0.1 Basophils % 0.2 Nucleated Red Blood Cells % 2.5 H Neutrophils # 11.6 H Lymphocytes # 0.5 L Monocytes # 0.7 Eosinophils # 0.0 Basophils # 0.0 Nucleated Red Blood Cells # 0.3 H Sodium Level 143 Potassium Level 3.3 L Chloride Level 101 Carbon Dioxide Level 14 L Anion Gap 31 #H Blood Urea Nitrogen 65 H Creatinine 7.91 #H Glucose Level 84 # Calcium Level 6.7 L Total Bilirubin 0.0 L Direct Bilirubin 0.00 Indirect Bilirubin 0.0 Aspartate Amino Transf (AST/SGOT) 371 H Alanine Aminotransferase (ALT/SGPT) 240 H Alkaline Phosphatase 148 H Total Protein 4.5 #L Albumin 2.3 L Globulin 2.20 Albumin/Globulin Ratio 1.04 Lab Scanned Report BLOOD TRANSFUSION Test 07/22/17 05:40 07/22/17 07:00 07/22/17 08:22 07/22/17 12:00 Lactic Acid Level 11.6 *H 8.2 *H Stool Occult Blood POSITIVE Blood Gas Specimen Source Blood arterial Arterial Blood Date Drawn 07/22/2017 8:25:47 AM Arterial Blood pH (Temp corrected) 7.409 Arterial Blood pCO2 (Temp correct) 18.1 L Arterial Blood pO2 (Temp corrected) 124.3 H Arterial Blood HCO3 11.2 L Arterial Blood Base Excess -11.8 L Arterial Blood Oxygen Saturation 97.7 Tommy Test ACCEPTAB Arterial Blood Gas Puncture Site Right Radial Arterial Blood Carboxyhemoglobin 0.3 Arterial Blood Methemoglobin 0.3 Blood Gas A-a O2 Differential 68.3 H Oxyhemoglobin Percent 97.1 Total Hemoglobin 8.6 L Blood Gas Temperature 37.0 Blood Gas Respiration Rate 30.0 Blood Gas Actual Respiration Rate 30 Blood Gas Modality VENT - AC FiO2 30.0 Blood Gas Tidal Volume 500.0 Blood Gas Low PEEP Setting 5.0 Blood Gas Notified Whom AILEEN NEWMAN Blood Gas Notified Time 07/22/2017 8:43:07 AM Bedside Glucose 94 Test 07/22/17 12:24 Bedside Glucose 109 Medications Current Medications Ondansetron HCl (Zofran Inj) 4 mg Q6H PRN IV NAUSEA AND/OR VOMITING; Start 07/20/17 at 12:00 Acetaminophen (Tylenol Liquid) 650 mg Q6H PRN PO PAIN LEVEL 1-3 OR FEVER; Start 07/20/17 at 12:00 Acetaminophen (Tylenol Tab) 650 mg Q6H PRN PO PAIN LEVEL 1-3 OR FEVER; Start 07/20/17 at 12:00 Docusate Sodium (Colace) 100 mg Q12H PRN PO CONSTIPATION; Start 07/20/17 at 12: 00 Magnesium Hydroxide (Milk Of Mag) 30 ml DAILY PRN PO CONSTIPATION; Start at 12:00 Bisacodyl (Dulcolax) 5 mg DAILY PRN PO CONSTIPATION; Start 07/20/17 at 12:00 Acetaminophen/ Hydrocodone Bitart ([place] (5/325)) 1 tab Q6H PRN PO MODERATE PAIN LEVEL 4-6; Start 07/20/17 at 16:00 Morphine Sulfate (morphine) 2 mg Q4H PRN IV SEVERE PAIN LEVEL 7-10; Start 07/20 at 16:00 Sodium Biphosphate/ Sodium Phosphate (Fleet Enema) 133 ml DAILY PRN [place] CONSTIPATION; Start 07/20/17 at 16:00 Famotidine (Pepcid Iv) 20 mg Q48H IV Last administered on 07/20/17 21:14; Admin Dose 20 MG; Start 07/20/17 at 21:00 Lorazepam (Ativan) 0.5 mg Q6H PRN IV ANXIETY; Start 07/20/17 at 16:00 Nitroglycerin 1 tab 1 tab Q5M PRN SL ANGINA; Start 07/20/17 at 16:00 Ciprofloxacin/ Dextrose 200 ml @ 200 mls/hr Q24H IVPB Last administered on 20:58; Admin Dose 200 MLS/HR; Start 07/20/17 at 20:00 Metronidazole (Flagyl 500 Mg (Pmx)) 100 ml @ 100 mls/hr Q6 IVPB Last administered on 07/22/17 12:33; Admin Dose 100 MLS/HR; Start 07/20/17 at 19:00 Diagnostic Test (Pha) (Accu-Chek) 1 ea 02 XX Last administered on 07/21/17 02: 47; Admin Dose 1 EA; Start 07/21/17 at 02:00 Insulin Aspart (Novolog Insulin Pen) NOVOLOG *MILD* ALGORI... Q4 SC Last administered on 07/21/17 05:46; Admin Dose 1 UNIT; Start 07/20/17 at 21:00 Miscellaneous Information 1 ea NOTE XX ; Start 07/20/17 at 18:00 Glucose (Glutose) 15 gm Q15M PRN PO DECREASED GLUCOSE; Start 07/20/17 at 18:00 Glucose (Glutose) 22.5 gm Q15M PRN PO DECREASED GLUCOSE; Start 07/20/17 at 18: 00 Dextrose (D50w Syringe) 25 ml Q15M PRN IV DECREASED GLUCOSE; Start 07/20/17 at 18:00 Dextrose (D50w Syringe) 50 ml Q15M PRN IV DECREASED GLUCOSE; Start 07/20/17 at 18:00 Glucagon (Glucagen) 1 mg Q15M PRN IM DECREASED GLUCOSE; Start 07/20/17 at 18:00 Glucose 15 gm 15 gm Q15M PRN BUCCAL DECREASED GLUCOSE; Start 07/20/17 at 18:00 Cefepime HCl 50 ml @ 100 mls/hr Q24H IVPB Last administered on 07/21/17 17:41 ; Admin Dose 100 MLS/HR; Start 07/21/17 at 17:00 Phenylephrine HCl 40 mg/Dextrose 500 ml @ 75 mls/hr TITRATE IV Last administered on 07/21/17 05:47; Admin Dose 45 MLS/HR; Start 07/21/17 at 00:00 Norepinephrine 32 mg/Dextrose 500 ml @ 0.93 mls/hr TITRATE PRN IV BLOOD PRESSURE SUPPORT Last administered on 07/21/17 05:45; Admin Dose 28.12 MLS/HR; Start 07/21/17 at 02:30 Sodium Bicarbonate 150 meq/Sodium Chloride 1,150 ml @ 60 mls/hr [id number] IV Last administered on 07/22/17 03:49; Admin Dose 60 MLS/HR; Start 07/21/17 at 08 :00 Propofol (Diprivan) 100 ml @ 2.712 mls/ hr Q12H IV Last administered on 14:02; Admin Dose 18.984 MLS/HR; Start 07/21/17 at 10:00 Assessment/Plan Additional Assessment/Plan IMP: 1. Metformin-associated Lactic Acidosis (ROBBIE) --type B lactic acidosis 2. Acute renal failure 3. Respiratory failure secondary to above 4, PVD RECS: 1. Vent changes: reduced RR 26; Vt 450 2. Will soon wean 3. Lactic acid slowly improving 4. Case d/w family 35 min cc time JOSAFAT LE MD Jul 22, 2017 14:37
[2017-07-22] MEDS: CEFEPIME 1GM/50 ML IVPB SCH (16:52)
--- NOTE | 2017-07-22 17:20 | SP ---
DATE OF PROCEDURE: 07/21/2017 HISTORY: This is a 41-year-old woman who was admitted following cardiorespiratory arrest. EEG is t o rule out encephalopathy or seizure activity. CURRENT MEDICATIONS: Propofol. PROCEDURE: Utilizing a 16-channel EEG machine, cap scalp electrodes were applied in accordance with International 10-20 system. [id number] and [id number] montages were displayed. Electrical i mpedances were measured and reported. DESCRIPTION: During the resting state, posterior dominant rhythm of about 7 to 8 Hz were seen bihem ispherically. Photic stimulation had no response. Hyperventilation was not performed. There was n o epileptiform activity noted. INTERPRETATION: This is an abnormal EEG due to presence of mild generalized background slowing with out any epileptiform activity. Please correlate these findings with the patient's clinical picture. Dictated By: BERT CALLAHAN/JOSE DE JESUS Conf#: [id number] DID#: [id number] CC: AKBAR GRAHAM;*EndCC*
[2017-07-22] MEDS: CIPROFLOXACIN 400MG/D5W 200 ML IVPB SCH (22:05)
[2017-07-22] MEDS: FAMOTIDINE 20 MG INJ IV SCH (22:05)
[2017-07-23] VITALS (91 sets, daily range): BP systolic 83–148; BP diastolic 46–104; PULSE 54–65; RESP 26–28
[2017-07-23] MEDS: INSULIN ASPART [NOVOLOG] 3 ML PEN SC SCH ×6 (01:00→21:00)
[2017-07-23] MEDS: ALBUTEROL HFA 8 GM INHALER INH SCH ×3 (01:17→08:05)
[2017-07-23] MEDS: IPRATROPIUM (HFA) 12.9 GM INHALER INH SCH ×3 (01:17→08:05)
[2017-07-23] MEDS: ACCU-CHEK XX SCH (02:00)
[2017-07-23] MEDS: PROPOFOL 100 ML IV SCH ×4 (03:16→19:48)
[2017-07-23] MEDS ORDERED: SOD CHLORIDE 0.9% 500 ML IV ONE (03:30)
[2017-07-23 04:40] LABS: BASOPHILS % 0.2 % (0.0-2.0); EOSINOPHILS # 0.4 10^3/ul (0.0-0.5); EOSINOPHILS % 3.1 % (0.0-7.0); HEMATOCRIT 22.8 % (37.0-47.0); HEMOGLOBIN 8.3 g/dl (12.0-16.0); LYMPHOCYTES # 0.8 10^3/ul (0.8-2.9); LYMPHOCYTES % 5.7 % (15.0-51.0); MEAN CORPUSCULAR HEMOGLOBIN 32.8 pg (29.0-33.0); MEAN CORPUSCULAR HGB CONC 36.4 g/dl (32.0-37.0); MEAN CORPUSCULAR VOLUME 90.1 fl (82.0-101.0); MEAN PLATELET VOLUME 11.2 fl (7.4-10.4); MONOCYTE # 0.6 10^3/ul (0.3-0.9); MONOCYTES % 4.7 % (0.0-11.0); NEUTROPHIL # 10.9 10^3/ul (1.6-7.5); NUCLEATED RED BLOOD CELLS # 0.5 10^3/ul (0.0-0.0); NUCLEATED RED BLOOD CELLS% 3.7 /100WBC (0.0-0.0); PLATELET COUNT 104 10^3/UL (140-415); RED BLOOD COUNT 2.53 10^6/ul (4.20-5.40); RED CELL DISTRIBUTION WIDTH 17.1 % (11.5-14.5); WHITE BLOOD COUNT 13.1 10^3/ul (4.8-10.8)
[2017-07-23 04:56] LABS: POSITIVE DIFF @See below
[2017-07-23 05:09] LABS: ALBUMIN 2.5 g/dl (3.3-4.9); ALBUMIN/GLOBULIN RATIO 1.04; BILIRUBIN,DIRECT 1.2 mg/dl (0.00-0.20); BILIRUBIN,INDIRECT 0.3 mg/dl (0-1.1); BILIRUBIN,TOTAL 1.5 mg/dl (0.2-1.3); CALCIUM 7.6 mg/dl (8.4-10.2); POTASSIUM 3.2 mmol/L (3.5-5.1); TOTAL PROTEIN 4.9 g/dl (6.1-8.1)
[2017-07-23 05:11] LABS: AADO2 Arterial 87.8 mmHg (7.0-24.0); Allen Test ACCEPTAB; Arterial Base Excess -6.1 mmol/L (-3.0-3); Arterial COHb 0.3 % (0.0-3.0); Arterial Fraction of Oxyhgb 95.6 % (93.0-99.0); Arterial HCO3 16.7 mmol/L (22.0-26.0); Arterial MetHb 0.3 % (0.0-1.5); Arterial Total Hemglobin 10.5 g/dl (12.0-18.0); MODE VENT - AC
[2017-07-23 05:23] LABS: CREATININE 6.1 mg/dl (0.44-1.00)
[2017-07-23] MEDS: metroNIDAZOLE 500 MG/NS (PMX) 100 ML IVPB SCH ×3 (06:08→18:37)
--- NOTE | 2017-07-23 10:11 | PN ---
Date/Time of Note Date/Time of Note DATE: 07/23/17 TIME: 10:00 Assessment/Plan VTE Prophylaxis VTE Prophylaxis Intervention: SCD's Lines/Catheters IV Catheter Type (from [facility]): Peripheral IV Urinary Cath still in place: Yes Reason Cath still needed: urinary retention Assessment/Plan Chief Complaint/Hosp Course S: Patient still intubated, still receiving dialysis, still with very elevated lactic acid levels. Still on low-dose pressor support as well. Stool studies results are still pending. GENERAL: Patient lying in bed, intubated NECK: Supple. HEENT: Pupils equal, round, react to light. Extraocular muscles intact. LUNGS: Slightly distant breath sounds bilaterally. CARDIOVASCULAR: S1, S2 heard. No rubs, gallops. ABDOMEN: Soft, nontender, nondistended. Normal bowel sounds. No rebound or guarding. MUSCULOSKELETAL: Trace pitting edema bilateral lower extremities to the mid calves. Slightly swollen. NEUROLOGIC: Unable to fully assess because patient is intubated at this time. ASSESSMENT AND PLAN: 41-year-old female coming in with shortness of breath with respiratory failure, now intubated status post cardiac arrest with return of spontaneous circulation, supraventricular tachycardia, severe metabolic lactic acidosis (possibly sec to metformin toxicity), and renal insufficiency/ failure, status post emergent dialysis. 1. Status post arrest -occurred in the emergency room for approximately 5 minutes - continue intensive care unit. Continue intubation. Follow-up pulmonary consult recommendations. - Monitor heart rate and vital signs very carefully. Consider cardiology consult. - Follow-up results of 2D echocardiogram as well. - Consider EEG as well and consider neurology consult. 2. Severe renal insufficiency with subsequent severe metabolic lactic acidosis acidosis-still present with quite elevated lactic acid levels, although bicarb improved. Possibly from metformin toxicity. Presently getting dialysis per renal recommendations, on IV fluids with sodium bicarb. - again, continue IV fluids with sodium bicarb. - Follow renal recommendations. Monitor urine output and BMP as well. - Continue to trend lactic acid 3. Type 2 diabetes-A1c equals 5.3 insulin sliding scale. 4. Respiratory failure. Again, status post intubation. - follow-up pulmonary on consult for mechanical ventilation. 5. Enteritis and colitis. Again, this was found on the CT scan. Enteritis, appears to be involving the stomach and duodenum. Colitis appears to be more along the large intestine, -Continue broad-spectrum antibiotics with Cipro and Flagyl to the regimen as well. Consider GI consult. -Follow-up stool studies including Clostridium difficile, O&P, stool culture - pending 6. Anemia: Unclear source -again status post PRBC transfusion 2 2 days ago, hemoglobin slightly improved. No present signs of any bleeding -Monitor, Follow-up stool occult test, would recommend holding off on anticoagulants for now until we know further where the anemia is possibly coming from. 7. Thrombocytopenia: Unclear source. No signs of any bleeding. Although again patient also having anemia. -We will hold cefepime and vancomycin since they can cause thrombocytopenia as there is also no clear source of upper respiratory infection although initially on admission there was a concern of this. -Monitor for signs of bleeding and platelet levels daily. 8. Gastrointestinal prophylaxis. H2 julien. 9. Deep venous thrombosis prophylaxis. Sequential compression devices. Critical care time spent on patient care today equals 45 minutes. Problems: Exam/Review of Systems Vital Signs Vitals Vital Signs Date Time Temp Pulse Resp B/P Pulse Ox O2 Delivery O2 Flow Rate FiO2 07/23/17 06:30 59 28 127/53 93 07/23/17 06:00 Mechanical Ventilator 07/23/17 05:59 30 07/23/17 04:00 97.8 07/21/17 01:19 15.0 Intake and Output 07/22/17 07/22/17 07/23/17 15:00 23:00 07:00 Intake Total 1218.254 ml 914.171 ml 755.57 ml Output Total 3500 ml 50 ml 60 ml Balance -2281.746 ml 864.171 ml 695.57 ml Results Result Diagram: 07/23/17 0410 07/23/17 0415 Results 24 hrs Laboratory Tests Test 07/22/17 12:00 07/22/17 12:24 07/22/17 16:18 07/22/17 16:52 Lactic Acid Level 8.2 *H 11.7 *H Bedside Glucose 109 80 Test 07/22/17 22:04 07/23/17 00:05 07/23/17 03:11 07/23/17 04:10 Bedside Glucose 73 70 Lactic Acid Level 10.3 *H White Blood Count 13.1 H Red Blood Count 2.53 L Hemoglobin 8.3 L Hematocrit 22.8 L Mean Corpuscular Volume 90.1 Mean Corpuscular Hemoglobin 32.8 Mean Corpuscular Hemoglobin Concent 36.4 Red Cell Distribution Width 17.1 H Platelet Count 104 L Mean Platelet Volume 11.2 H Neutrophils % 83.0 H Lymphocytes % 5.7 L Monocytes % 4.7 Eosinophils % 3.1 Basophils % 0.2 Nucleated Red Blood Cells % 3.7 H Neutrophils # 10.9 H Lymphocytes # 0.8 Monocytes # 0.6 Eosinophils # 0.4 Basophils # 0.0 Nucleated Red Blood Cells # 0.5 H Test 07/23/17 04:15 07/23/17 05:00 07/23/17 06:06 07/23/17 06:33 Sodium Level 143 Potassium Level 3.2 L Chloride Level 101 Carbon Dioxide Level 19 L Anion Gap 26 H Blood Urea Nitrogen 51 H Creatinine 6.10 H Glucose Level 63 #L Lactic Acid Level 10.3 *H Calcium Level 7.6 L Total Bilirubin 1.5 H Direct Bilirubin 1.20 #H Indirect Bilirubin 0.3 Aspartate Amino Transf (AST/SGOT) Alanine Aminotransferase (ALT/SGPT) 885 H Alkaline Phosphatase 250 #H Total Protein 4.9 L Albumin 2.5 L Globulin 2.40 Albumin/Globulin Ratio 1.04 Blood Gas Specimen Source Blood arterial Arterial Blood Date Drawn 07/23/2017 4:42:22 AM Arterial Blood pH (Temp corrected) 7.440 Arterial Blood pCO2 (Temp correct) 25.2 L Arterial Blood pO2 (Temp corrected) 96.5 Arterial Blood HCO3 16.7 L Arterial Blood Base Excess -6.1 L Arterial Blood Oxygen Saturation 96.2 Tommy Test ACCEPTAB Arterial Blood Gas Puncture Site Right Radial Arterial Blood Carboxyhemoglobin 0.3 Arterial Blood Methemoglobin 0.3 Blood Gas A-a O2 Differential 87.8 H Oxyhemoglobin Percent 95.6 Total Hemoglobin 10.5 L Blood Gas Temperature 37.0 Blood Gas Respiration Rate 26.0 Blood Gas Actual Respiration Rate 26 Blood Gas Modality VENT - AC FiO2 30.0 Blood Gas Tidal Volume 450.0 Blood Gas Low PEEP Setting 5.0 Blood Gas Inspiratory Pressure 26.0 Blood Gas Notified Whom RTR Blood Gas Notified Time 07/23/2017 5:11:15 AM Bedside Glucose 60 L 120 Test 07/23/17 07:51 07/23/17 09:18 Bedside Glucose 93 83 Medications Medications Current Medications Ondansetron HCl (Zofran Inj) 4 mg Q6H PRN IV NAUSEA AND/OR VOMITING; Start 07/20/17 at 12:00 Acetaminophen (Tylenol Liquid) 650 mg Q6H PRN PO PAIN LEVEL 1-3 OR FEVER; Start 07/20/17 at 12:00 Acetaminophen (Tylenol Tab) 650 mg Q6H PRN PO PAIN LEVEL 1-3 OR FEVER; Start 07/20/17 at 12:00 Docusate Sodium (Colace) 100 mg Q12H PRN PO CONSTIPATION; Start 07/20/17 at 12: 00 Magnesium Hydroxide (Milk Of Mag) 30 ml DAILY PRN PO CONSTIPATION; Start at 12:00 Bisacodyl (Dulcolax) 5 mg DAILY PRN PO CONSTIPATION; Start 07/20/17 at 12:00 Acetaminophen/ Hydrocodone Bitart ([place] (5/325)) 1 tab Q6H PRN PO MODERATE PAIN LEVEL 4-6; Start 07/20/17 at 16:00 Morphine Sulfate (morphine) 2 mg Q4H PRN IV SEVERE PAIN LEVEL 7-10; Start 07/20 at 16:00 Sodium Biphosphate/ Sodium Phosphate (Fleet Enema) 133 ml DAILY PRN [place] CONSTIPATION; Start 07/20/17 at 16:00 Famotidine (Pepcid Iv) 20 mg Q48H IV Last administered on 07/22/17 22:05; Admin Dose 20 MG; Start 07/20/17 at 21:00 Lorazepam (Ativan) 0.5 mg Q6H PRN IV ANXIETY; Start 07/20/17 at 16:00 Nitroglycerin 1 tab 1 tab Q5M PRN SL ANGINA; Start 07/20/17 at 16:00 Ciprofloxacin/ Dextrose 200 ml @ 200 mls/hr Q24H IVPB Last administered on 22:05; Admin Dose 200 MLS/HR; Start 07/20/17 at 20:00 Metronidazole (Flagyl 500 Mg (Pmx)) 100 ml @ 100 mls/hr Q6 IVPB Last administered on 07/23/17 06:08; Admin Dose 100 MLS/HR; Start 07/20/17 at 19:00 Diagnostic Test (Pha) (Accu-Chek) 1 ea 02 XX Last administered on 07/21/17 02: 47; Admin Dose 1 EA; Start 07/21/17 at 02:00 Insulin Aspart (Novolog Insulin Pen) NOVOLOG *MILD* ALGORI... Q4 SC Last administered on 07/21/17 05:46; Admin Dose 1 UNIT; Start 07/20/17 at 21:00 Miscellaneous Information 1 ea NOTE XX ; Start 07/20/17 at 18:00 Glucose (Glutose) 15 gm Q15M PRN PO DECREASED GLUCOSE; Start 07/20/17 at 18:00 Glucose (Glutose) 22.5 gm Q15M PRN PO DECREASED GLUCOSE; Start 07/20/17 at 18: 00 Dextrose (D50w Syringe) 25 ml Q15M PRN IV DECREASED GLUCOSE Last administered on 07/23/17 06:13; Admin Dose 25 ML; Start 07/20/17 at 18:00 Dextrose (D50w Syringe) 50 ml Q15M PRN IV DECREASED GLUCOSE; Start 07/20/17 at 18:00 Glucagon (Glucagen) 1 mg Q15M PRN IM DECREASED GLUCOSE; Start 07/20/17 at 18:00 Glucose 15 gm 15 gm Q15M PRN BUCCAL DECREASED GLUCOSE; Start 07/20/17 at 18:00 Cefepime HCl 50 ml @ 100 mls/hr Q24H IVPB Last administered on 07/22/17 16:52 ; Admin Dose 100 MLS/HR; Start 07/21/17 at 17:00 Phenylephrine HCl 40 mg/Dextrose 500 ml @ 75 mls/hr TITRATE IV Last administered on 07/21/17 05:47; Admin Dose 45 MLS/HR; Start 07/21/17 at 00:00 Norepinephrine 32 mg/Dextrose 500 ml @ 0.93 mls/hr TITRATE PRN IV BLOOD PRESSURE SUPPORT Last administered on 07/23/17 07:55; Admin Dose 0.93 MLS/HR; Start 07/21/17 at 02:30 Sodium Bicarbonate 150 meq/Sodium Chloride 1,150 ml @ 60 mls/hr [id number] IV Last administered on 07/22/17 22:06; Admin Dose 60 MLS/HR; Start 07/21/17 at 08 :00 Propofol (Diprivan) 100 ml @ 2.712 mls/ hr Q12H IV Last administered on 09:10; Admin Dose 16.272 MLS/HR; Start 07/21/17 at 10:00 AKBAR GRAHAM Jul 23, 2017 10:11
--- NOTE | 2017-07-23 14:22 | CONS ---
Date/Time of Note Date/Time of Note DATE: 07/23/17 TIME: 14:20 Assessment/Plan Assessment/Plan Chief Complaint/Hosp Course 1. ALEXIA. 2. Anasarca, better. 3. Hyperkalemia, resolved. 4. Metabolic acidosis, better. 5. Severe anemia. 6. The patient has elevated BNP. 7. Sepsis 8. Obesity. 9. Underlying chronic kidney disease. 10. non compliance 11. Acute hypoxic respiratory failure Problems: Additional Assessment/Plan 1. continue HD 2. Continue critical care Consultation Date/Type/Reason Admit Date/Time Jul 20, 2017 at 15:54 Initial Consult Date 07/19/2017 Type of Consultation: nephrology Reason for Consultation Dr Carranza 24 HR Interval Summary Free Text/Dictation sedated with propofol Subjective hx not possible: pt non-verbal Exam/Review of Systems Vital Signs Vitals Vital Signs Date Time Temp Pulse Resp B/P Pulse Ox O2 Delivery O2 Flow Rate FiO2 07/23/17 08:00 62 07/23/17 06:30 28 127/53 93 07/23/17 06:00 Mechanical Ventilator 07/23/17 05:59 30 07/23/17 04:00 97.8 07/21/17 01:19 15.0 Intake and Output 07/22/17 07/22/17 07/23/17 15:00 23:00 07:00 Intake Total 1218.254 ml 914.171 ml 755.57 ml Output Total 3500 ml 50 ml 60 ml Balance -2281.746 ml 864.171 ml 695.57 ml Exam Neck: supple Respiratory: diminished breath sounds Cardiovascular: regular rate and rhythm Gastrointestinal: soft Musculoskeletal: muscle weakness Results Result Diagram: 07/23/17 0410 07/23/17 0415 Results 24 hrs Laboratory Tests Test 07/22/17 16:18 07/22/17 16:52 07/22/17 22:04 07/23/17 00:05 Lactic Acid Level 11.7 *H 10.3 *H Bedside Glucose 80 73 Test 07/23/17 03:11 07/23/17 04:10 07/23/17 04:15 07/23/17 05:00 Bedside Glucose 70 White Blood Count 13.1 H Red Blood Count 2.53 L Hemoglobin 8.3 L Hematocrit 22.8 L Mean Corpuscular Volume 90.1 Mean Corpuscular Hemoglobin 32.8 Mean Corpuscular Hemoglobin Concent 36.4 Red Cell Distribution Width 17.1 H Platelet Count 104 L Mean Platelet Volume 11.2 H Neutrophils % 83.0 H Lymphocytes % 5.7 L Monocytes % 4.7 Eosinophils % 3.1 Basophils % 0.2 Nucleated Red Blood Cells % 3.7 H Neutrophils # 10.9 H Lymphocytes # 0.8 Monocytes # 0.6 Eosinophils # 0.4 Basophils # 0.0 Nucleated Red Blood Cells # 0.5 H Sodium Level 143 Potassium Level 3.2 L Chloride Level 101 Carbon Dioxide Level 19 L Anion Gap 26 H Blood Urea Nitrogen 51 H Creatinine 6.10 H Glucose Level 63 #L Lactic Acid Level 10.3 *H Calcium Level 7.6 L Total Bilirubin 1.5 H Direct Bilirubin 1.20 #H Indirect Bilirubin 0.3 Aspartate Amino Transf (AST/SGOT) Alanine Aminotransferase (ALT/SGPT) 885 H Alkaline Phosphatase 250 #H Total Protein 4.9 L Albumin 2.5 L Globulin 2.40 Albumin/Globulin Ratio 1.04 Blood Gas Specimen Source Blood arterial Arterial Blood Date Drawn 07/23/2017 4:42:22 AM Arterial Blood pH (Temp corrected) 7.440 Arterial Blood pCO2 (Temp correct) 25.2 L Arterial Blood pO2 (Temp corrected) 96.5 Arterial Blood HCO3 16.7 L Arterial Blood Base Excess -6.1 L Arterial Blood Oxygen Saturation 96.2 Tommy Test ACCEPTAB Arterial Blood Gas Puncture Site Right Radial Arterial Blood Carboxyhemoglobin 0.3 Arterial Blood Methemoglobin 0.3 Blood Gas A-a O2 Differential 87.8 H Oxyhemoglobin Percent 95.6 Total Hemoglobin 10.5 L Blood Gas Temperature 37.0 Blood Gas Respiration Rate 26.0 Blood Gas Actual Respiration Rate 26 Blood Gas Modality VENT - AC FiO2 30.0 Blood Gas Tidal Volume 450.0 Blood Gas Low PEEP Setting 5.0 Blood Gas Inspiratory Pressure 26.0 Blood Gas Notified Whom RTR Blood Gas Notified Time 07/23/2017 5:11:15 AM Test 07/23/17 06:06 07/23/17 06:33 07/23/17 07:51 07/23/17 09:18 Bedside Glucose 60 L 120 93 83 Test 07/23/17 13:10 07/23/17 13:13 Bedside Glucose 83 Lactic Acid Level 9.7 *H Medications Medications Current Medications Ondansetron HCl (Zofran Inj) 4 mg Q6H PRN IV NAUSEA AND/OR VOMITING; Start 07/20/17 at 12:00 Acetaminophen (Tylenol Liquid) 650 mg Q6H PRN PO PAIN LEVEL 1-3 OR FEVER; Start 07/20/17 at 12:00 Acetaminophen (Tylenol Tab) 650 mg Q6H PRN PO PAIN LEVEL 1-3 OR FEVER; Start 07/20/17 at 12:00 Docusate Sodium (Colace) 100 mg Q12H PRN PO CONSTIPATION; Start 07/20/17 at 12: 00 Magnesium Hydroxide (Milk Of Mag) 30 ml DAILY PRN PO CONSTIPATION; Start at 12:00 Bisacodyl (Dulcolax) 5 mg DAILY PRN PO CONSTIPATION; Start 07/20/17 at 12:00 Acetaminophen/ Hydrocodone Bitart ([place] (5/325)) 1 tab Q6H PRN PO MODERATE PAIN LEVEL 4-6; Start 07/20/17 at 16:00 Morphine Sulfate (morphine) 2 mg Q4H PRN IV SEVERE PAIN LEVEL 7-10; Start 07/20 at 16:00 Sodium Biphosphate/ Sodium Phosphate (Fleet Enema) 133 ml DAILY PRN [place] CONSTIPATION; Start 07/20/17 at 16:00 Famotidine (Pepcid Iv) 20 mg Q48H IV Last administered on 07/22/17 22:05; Admin Dose 20 MG; Start 07/20/17 at 21:00 Lorazepam (Ativan) 0.5 mg Q6H PRN IV ANXIETY; Start 07/20/17 at 16:00 Nitroglycerin 1 tab 1 tab Q5M PRN SL ANGINA; Start 07/20/17 at 16:00 Ciprofloxacin/ Dextrose 200 ml @ 200 mls/hr Q24H IVPB Last administered on 22:05; Admin Dose 200 MLS/HR; Start 07/20/17 at 20:00 Metronidazole (Flagyl 500 Mg (Pmx)) 100 ml @ 100 mls/hr Q6 IVPB Last administered on 07/23/17 06:08; Admin Dose 100 MLS/HR; Start 07/20/17 at 19:00 Diagnostic Test (Pha) (Accu-Chek) 1 ea 02 XX Last administered on 07/21/17 02: 47; Admin Dose 1 EA; Start 07/21/17 at 02:00 Insulin Aspart (Novolog Insulin Pen) NOVOLOG *MILD* ALGORI... Q4 SC Last administered on 07/21/17 05:46; Admin Dose 1 UNIT; Start 07/20/17 at 21:00 Miscellaneous Information 1 ea NOTE XX ; Start 07/20/17 at 18:00 Glucose (Glutose) 15 gm Q15M PRN PO DECREASED GLUCOSE; Start 07/20/17 at 18:00 Glucose (Glutose) 22.5 gm Q15M PRN PO DECREASED GLUCOSE; Start 07/20/17 at 18: 00 Dextrose (D50w Syringe) 25 ml Q15M PRN IV DECREASED GLUCOSE Last administered on 07/23/17 06:13; Admin Dose 25 ML; Start 07/20/17 at 18:00 Dextrose (D50w Syringe) 50 ml Q15M PRN IV DECREASED GLUCOSE; Start 07/20/17 at 18:00 Glucagon (Glucagen) 1 mg Q15M PRN IM DECREASED GLUCOSE; Start 07/20/17 at 18:00 Glucose 15 gm 15 gm Q15M PRN BUCCAL DECREASED GLUCOSE; Start 07/20/17 at 18:00 Phenylephrine HCl 40 mg/Dextrose 500 ml @ 75 mls/hr TITRATE IV Last administered on 07/21/17 05:47; Admin Dose 45 MLS/HR; Start 07/21/17 at 00:00 Norepinephrine 32 mg/Dextrose 500 ml @ 0.93 mls/hr TITRATE PRN IV BLOOD PRESSURE SUPPORT Last administered on 07/23/17 07:55; Admin Dose 0.93 MLS/HR; Start 07/21/17 at 02:30 Sodium Bicarbonate 150 meq/Sodium Chloride 1,150 ml @ 60 mls/hr [id number] IV Last administered on 07/22/17 22:06; Admin Dose 60 MLS/HR; Start 07/21/17 at 08 :00 Propofol (Diprivan) 100 ml @ 2.712 mls/ hr Q12H IV Last administered on 09:10; Admin Dose 16.272 MLS/HR; Start 07/21/17 at 10:00 JAMA ROCHA Jul 23, 2017 14:22
--- NOTE | 2017-07-23 14:44 | CONS ---
Date/Time of Note Date/Time of Note DATE: 07/23/17 TIME: 14:43 Consult Date/Type/Reason Admit Date/Time Jul 20, 2017 at 15:54 Type of Consultation: Pulm/CCM Subjective On vent. Sedated. LA slowly declining. Objective Vital Signs Date Time Temp Pulse Resp B/P Pulse Ox O2 Delivery O2 Flow Rate FiO2 07/23/17 12:00 54 07/23/17 06:30 28 127/53 93 07/23/17 06:00 Mechanical Ventilator 07/23/17 05:59 30 07/23/17 04:00 97.8 07/21/17 01:19 15.0 Intake and Output 07/22/17 07/22/17 07/23/17 15:00 23:00 07:00 Intake Total 1218.254 ml 914.171 ml 755.57 ml Output Total 3500 ml 50 ml 60 ml Balance -2281.746 ml 864.171 ml 695.57 ml Exam HEENT: Neck supple; no JVD; no LAD; + ET tube CVS: RRR, S1 and S2 CHEST: Clear ABD: Soft, NT, + BS EXT: No c/c; LE PVD Results/Medications Result Diagram: 07/23/17 0410 07/23/17 0415 Results 24 hrs Laboratory Tests Test 07/22/17 16:18 07/22/17 16:52 07/22/17 22:04 07/23/17 00:05 Lactic Acid Level 11.7 *H 10.3 *H Bedside Glucose 80 73 Test 07/23/17 03:11 07/23/17 04:10 07/23/17 04:15 07/23/17 05:00 Bedside Glucose 70 White Blood Count 13.1 H Red Blood Count 2.53 L Hemoglobin 8.3 L Hematocrit 22.8 L Mean Corpuscular Volume 90.1 Mean Corpuscular Hemoglobin 32.8 Mean Corpuscular Hemoglobin Concent 36.4 Red Cell Distribution Width 17.1 H Platelet Count 104 L Mean Platelet Volume 11.2 H Neutrophils % 83.0 H Lymphocytes % 5.7 L Monocytes % 4.7 Eosinophils % 3.1 Basophils % 0.2 Nucleated Red Blood Cells % 3.7 H Neutrophils # 10.9 H Lymphocytes # 0.8 Monocytes # 0.6 Eosinophils # 0.4 Basophils # 0.0 Nucleated Red Blood Cells # 0.5 H Sodium Level 143 Potassium Level 3.2 L Chloride Level 101 Carbon Dioxide Level 19 L Anion Gap 26 H Blood Urea Nitrogen 51 H Creatinine 6.10 H Glucose Level 63 #L Lactic Acid Level 10.3 *H Calcium Level 7.6 L Total Bilirubin 1.5 H Direct Bilirubin 1.20 #H Indirect Bilirubin 0.3 Aspartate Amino Transf (AST/SGOT) Alanine Aminotransferase (ALT/SGPT) 885 H Alkaline Phosphatase 250 #H Total Protein 4.9 L Albumin 2.5 L Globulin 2.40 Albumin/Globulin Ratio 1.04 Blood Gas Specimen Source Blood arterial Arterial Blood Date Drawn 07/23/2017 4:42:22 AM Arterial Blood pH (Temp corrected) 7.440 Arterial Blood pCO2 (Temp correct) 25.2 L Arterial Blood pO2 (Temp corrected) 96.5 Arterial Blood HCO3 16.7 L Arterial Blood Base Excess -6.1 L Arterial Blood Oxygen Saturation 96.2 Tommy Test ACCEPTAB Arterial Blood Gas Puncture Site Right Radial Arterial Blood Carboxyhemoglobin 0.3 Arterial Blood Methemoglobin 0.3 Blood Gas A-a O2 Differential 87.8 H Oxyhemoglobin Percent 95.6 Total Hemoglobin 10.5 L Blood Gas Temperature 37.0 Blood Gas Respiration Rate 26.0 Blood Gas Actual Respiration Rate 26 Blood Gas Modality VENT - AC FiO2 30.0 Blood Gas Tidal Volume 450.0 Blood Gas Low PEEP Setting 5.0 Blood Gas Inspiratory Pressure 26.0 Blood Gas Notified Whom RTR Blood Gas Notified Time 07/23/2017 5:11:15 AM Test 07/23/17 06:06 07/23/17 06:33 07/23/17 07:51 07/23/17 09:18 Bedside Glucose 60 L 120 93 83 Test 07/23/17 13:10 07/23/17 13:13 Bedside Glucose 83 Lactic Acid Level 9.7 *H Medications Current Medications Ondansetron HCl (Zofran Inj) 4 mg Q6H PRN IV NAUSEA AND/OR VOMITING; Start 07/20/17 at 12:00 Acetaminophen (Tylenol Liquid) 650 mg Q6H PRN PO PAIN LEVEL 1-3 OR FEVER; Start 07/20/17 at 12:00 Acetaminophen (Tylenol Tab) 650 mg Q6H PRN PO PAIN LEVEL 1-3 OR FEVER; Start 07/20/17 at 12:00 Docusate Sodium (Colace) 100 mg Q12H PRN PO CONSTIPATION; Start 07/20/17 at 12: 00 Magnesium Hydroxide (Milk Of Mag) 30 ml DAILY PRN PO CONSTIPATION; Start at 12:00 Bisacodyl (Dulcolax) 5 mg DAILY PRN PO CONSTIPATION; Start 07/20/17 at 12:00 Acetaminophen/ Hydrocodone Bitart ([place] (5/325)) 1 tab Q6H PRN PO MODERATE PAIN LEVEL 4-6; Start 07/20/17 at 16:00 Morphine Sulfate (morphine) 2 mg Q4H PRN IV SEVERE PAIN LEVEL 7-10; Start 07/20 at 16:00 Sodium Biphosphate/ Sodium Phosphate (Fleet Enema) 133 ml DAILY PRN [place] CONSTIPATION; Start 07/20/17 at 16:00 Famotidine (Pepcid Iv) 20 mg Q48H IV Last administered on 07/22/17 22:05; Admin Dose 20 MG; Start 07/20/17 at 21:00 Lorazepam (Ativan) 0.5 mg Q6H PRN IV ANXIETY; Start 07/20/17 at 16:00 Nitroglycerin 1 tab 1 tab Q5M PRN SL ANGINA; Start 07/20/17 at 16:00 Ciprofloxacin/ Dextrose 200 ml @ 200 mls/hr Q24H IVPB Last administered on 22:05; Admin Dose 200 MLS/HR; Start 07/20/17 at 20:00 Metronidazole (Flagyl 500 Mg (Pmx)) 100 ml @ 100 mls/hr Q6 IVPB Last administered on 07/23/17 06:08; Admin Dose 100 MLS/HR; Start 07/20/17 at 19:00 Diagnostic Test (Pha) (Accu-Chek) 1 ea 02 XX Last administered on 07/21/17 02: 47; Admin Dose 1 EA; Start 07/21/17 at 02:00 Insulin Aspart (Novolog Insulin Pen) NOVOLOG *MILD* ALGORI... Q4 SC Last administered on 07/21/17 05:46; Admin Dose 1 UNIT; Start 07/20/17 at 21:00 Miscellaneous Information 1 ea NOTE XX ; Start 07/20/17 at 18:00 Glucose (Glutose) 15 gm Q15M PRN PO DECREASED GLUCOSE; Start 07/20/17 at 18:00 Glucose (Glutose) 22.5 gm Q15M PRN PO DECREASED GLUCOSE; Start 07/20/17 at 18: 00 Dextrose (D50w Syringe) 25 ml Q15M PRN IV DECREASED GLUCOSE Last administered on 07/23/17 06:13; Admin Dose 25 ML; Start 07/20/17 at 18:00 Dextrose (D50w Syringe) 50 ml Q15M PRN IV DECREASED GLUCOSE; Start 07/20/17 at 18:00 Glucagon (Glucagen) 1 mg Q15M PRN IM DECREASED GLUCOSE; Start 07/20/17 at 18:00 Glucose 15 gm 15 gm Q15M PRN BUCCAL DECREASED GLUCOSE; Start 07/20/17 at 18:00 Phenylephrine HCl 40 mg/Dextrose 500 ml @ 75 mls/hr TITRATE IV Last administered on 07/21/17 05:47; Admin Dose 45 MLS/HR; Start 07/21/17 at 00:00 Norepinephrine 32 mg/Dextrose 500 ml @ 0.93 mls/hr TITRATE PRN IV BLOOD PRESSURE SUPPORT Last administered on 07/23/17 07:55; Admin Dose 0.93 MLS/HR; Start 07/21/17 at 02:30 Sodium Bicarbonate 150 meq/Sodium Chloride 1,150 ml @ 60 mls/hr [id number] IV Last administered on 07/22/17 22:06; Admin Dose 60 MLS/HR; Start 07/21/17 at 08 :00 Propofol (Diprivan) 100 ml @ 2.712 mls/ hr Q12H IV Last administered on 09:10; Admin Dose 16.272 MLS/HR; Start 07/21/17 at 10:00 Assessment/Plan Additional Assessment/Plan IMP: 1. Metformin-associated Lactic Acidosis (ROBBIE) --type B lactic acidosis 2. Acute renal failure 3. Respiratory failure secondary to above 4, PVD RECS: 1. To CPAP with PS in am 2. Continue HD 3. Follow lactate clearance 4. Sedation holiday daily 35 min cc time JOSAFAT LE MD Jul 23, 2017 14:44
[2017-07-23] MEDS: SODIUM BICARBONATE (IV ADD) 150 MEQ in SOD CHLORIDE 0.9% 1,000 ML IV SCH (15:43)
[2017-07-23] MEDS ORDERED: ALBUTEROL HFA 8 GM INHALER INH SCH (16:36)
[2017-07-23] MEDS ORDERED: IPRATROPIUM (HFA) 12.9 GM INHALER INH SCH (16:38)
[2017-07-23] MEDS ORDERED: BUMETANIDE 1 MG INJ IV ONE (17:30)
[2017-07-23] MEDS: CIPROFLOXACIN 400MG/D5W 200 ML IVPB SCH (19:48)
[2017-07-24] VITALS (55 sets, daily range): BP systolic 78–160; BP diastolic 49–128; PULSE 48–82; RESP 12–30
[2017-07-24] MEDS ORDERED: PIPER-TAZO 3.375 GM IV (PMX) 0 ML ONE (00:28)
[2017-07-24] MEDS: SODIUM BICARBONATE (IV ADD) 150 MEQ in SOD CHLORIDE 0.9% 1,000 ML IV SCH (00:33)
[2017-07-24] MEDS: PROPOFOL 100 ML IV SCH ×2 (00:33→19:45)
[2017-07-24] MEDS: metroNIDAZOLE 500 MG/NS (PMX) 100 ML IVPB SCH ×4 (00:33→19:00)
[2017-07-24] MEDS: INSULIN ASPART [NOVOLOG] 3 ML PEN SC SCH ×6 (00:38→21:28)
[2017-07-24] MEDS: ACCU-CHEK XX SCH (02:00)
[2017-07-24 05:37] LABS: ALBUMIN 2.3 g/dl (3.3-4.9); BILIRUBIN,DIRECT 2.3 mg/dl (0.00-0.20); BILIRUBIN,INDIRECT 0.3 mg/dl (0-1.1); BILIRUBIN,TOTAL 2.6 mg/dl (0.2-1.3); TOTAL PROTEIN 4.5 g/dl (6.1-8.1)
[2017-07-24 06:25] LABS: CREATININE 6.16 mg/dl (0.44-1.00); POTASSIUM 2.8 mmol/L (3.5-5.1)
[2017-07-24] MEDS ORDERED: ALBUMIN HUMAN 25% 100 ML IV ONE (07:00)
[2017-07-24] MEDS ORDERED: ALBUMIN HUMAN 25% 100 ML ONE (07:02)
[2017-07-24 07:36] LABS: ABNORMAL IP MESSAGE 1; HEMATOCRIT 21.9 % (37.0-47.0); MEAN CORPUSCULAR HEMOGLOBIN 30.4 pg (29.0-33.0); MEAN CORPUSCULAR HGB CONC 34.2 g/dl (32.0-37.0); MEAN CORPUSCULAR VOLUME 88.7 fl (82.0-101.0); RED BLOOD COUNT 2.47 10^6/ul (4.20-5.40); RED CELL DISTRIBUTION WIDTH 16.9 % (11.5-14.5)
[2017-07-24 07:37] LABS: PLATELET COUNT 84 10^3/UL (140-415); POSITIVE DIFF @See below; WHITE BLOOD COUNT 11.7 10^3/ul (4.8-10.8)
[2017-07-24 07:38] LABS: HEMOGLOBIN 7.5 g/dl (12.0-16.0)
--- NOTE | 2017-07-24 08:11 | RADRPT ---
PROCEDURE: XR Chest. CLINICAL INDICATION: Pneumonia TECHNIQUE: A single AP view of the chest was obtained. COMPARISON: CHEST 07/22/2017; CHEST 07/21/2017; CHEST 07/20/2017; CHEST 07/20/2017 FINDINGS: The endotracheal tube tip is approximately 1.9 cm above the jerry. The tip of the enteric tube ex tends below the left diaphragm. There is a left internal jugular central venous catheter with tip ne ar the cavoatrial junction. Lung volumes are low with compressive changes and crowding of the central pulmonary vascular marking s. No focal airspace opacity, pleural effusion or pneumothorax is seen. The cardiomediastinal silho uette is within normal limits for size. The osseous structures are unremarkable. IMPRESSION: 1. Low lung volumes with compressive changes. No significant interval change. 2. Tubes and lines, as described above. RPTAT: HH .Lakisha Marquez MD, MD Date Time Electronically viewed and signed by .Lakisha Marquez MD, on 07/24/2017 08:11 .G/
--- NOTE | 2017-07-24 09:27 | CONS ---
Date/Time of Note Date/Time of Note DATE: 07/24/17 TIME: 09:23 Assessment/Plan Assessment/Plan Additional Assessment/Plan I appreciate being called in early with this very ill 41-year-old female with sepsis syndrome Hemodialysis Anemia Cytopenia Respiratory failure intubated Hemodynamically compromised Follow will schedule appointment family members just to appraise him of current medical condition. Consultation Date/Type/Reason Admit Date/Time Jul 20, 2017 at 15:54 Reason for Consultation Palliative care consultation first of all this is an just looking over patient' s chart consultation. She recently admitted to the hospital approximately 4 days ago after having a cardiac arrest where she is critically ill in the intensive care unit on dialysis intubated. It is unknown what the etiology of the underlying syndrome. In the chart the only thing that is immediately apparent is enteritis and colitis on CT scan of abdomen. Palliative care Social History Smoking Status: Never smoker Exam/Review of Systems Vital Signs Vitals Vital Signs Date Time Temp Pulse Resp B/P Pulse Ox O2 Delivery O2 Flow Rate FiO2 07/24/17 06:30 59 27 121/65 96 07/24/17 06:00 Mechanical Ventilator 07/24/17 05:50 30 07/24/17 04:45 98.3 07/21/17 01:19 15.0 Intake and Output 07/23/17 07/23/17 07/24/17 15:00 23:00 07:00 Intake Total 724.02 ml 863.72 ml 914.81 ml Output Total 0 ml 0 ml 0 ml Balance 724.02 ml 863.72 ml 914.81 ml Results Result Diagram: 07/24/17 0400 07/24/17 0400 Results 24 hrs Laboratory Tests Test 07/23/17 13:10 07/23/17 13:13 07/23/17 17:39 07/23/17 18:39 Bedside Glucose 83 97 Lactic Acid Level 9.7 *H 8.7 *H Test 07/23/17 22:14 07/24/17 00:16 07/24/17 00:36 07/24/17 04:00 Bedside Glucose 113 122 Lactic Acid Level 6.5 *H 6.6 *H White Blood Count 11.7 H Red Blood Count 2.47 L Hemoglobin 7.5 L Hematocrit 21.9 L Mean Corpuscular Volume 88.7 Mean Corpuscular Hemoglobin 30.4 Mean Corpuscular Hemoglobin Concent 34.2 Red Cell Distribution Width 16.9 H Platelet Count 84 L Mean Platelet Volume 12.0 H Neutrophils % Lymphocytes % Monocytes % Eosinophils % Basophils % Nucleated Red Blood Cells % 8.0 H Neutrophils # Lymphocytes # Monocytes # Eosinophils # Basophils # Nucleated Red Blood Cells # Sodium Level 145 H Potassium Level 2.8 *L Chloride Level 102 Carbon Dioxide Level 23 Anion Gap 23 H Blood Urea Nitrogen 58 H Creatinine 6.16 H Glucose Level 115 # Calcium Level 7.0 L Total Bilirubin 2.6 H Direct Bilirubin 2.30 #H Indirect Bilirubin 0.3 Aspartate Amino Transf (AST/SGOT) 1395 H Alanine Aminotransferase (ALT/SGPT) 913 H Alkaline Phosphatase 322 H Total Protein 4.5 L Albumin 2.3 L Test 07/24/17 05:25 Bedside Glucose 123 Medications Medications Current Medications Ondansetron HCl (Zofran Inj) 4 mg Q6H PRN IV NAUSEA AND/OR VOMITING; Start 07/20/17 at 12:00 Acetaminophen (Tylenol Liquid) 650 mg Q6H PRN PO PAIN LEVEL 1-3 OR FEVER; Start 07/20/17 at 12:00 Acetaminophen (Tylenol Tab) 650 mg Q6H PRN PO PAIN LEVEL 1-3 OR FEVER; Start 07/20/17 at 12:00 Docusate Sodium (Colace) 100 mg Q12H PRN PO CONSTIPATION; Start 07/20/17 at 12: 00 Magnesium Hydroxide (Milk Of Mag) 30 ml DAILY PRN PO CONSTIPATION; Start at 12:00 Bisacodyl (Dulcolax) 5 mg DAILY PRN PO CONSTIPATION; Start 07/20/17 at 12:00 Acetaminophen/ Hydrocodone Bitart ([place] (5/325)) 1 tab Q6H PRN PO MODERATE PAIN LEVEL 4-6; Start 07/20/17 at 16:00 Morphine Sulfate (morphine) 2 mg Q4H PRN IV SEVERE PAIN LEVEL 7-10; Start 07/20 at 16:00 Sodium Biphosphate/ Sodium Phosphate (Fleet Enema) 133 ml DAILY PRN [place] CONSTIPATION; Start 07/20/17 at 16:00 Famotidine (Pepcid Iv) 20 mg Q48H IV Last administered on 07/22/17t 22:05; Admin Dose 20 MG; Start 07/20/17 at 21:00 Lorazepam (Ativan) 0.5 mg Q6H PRN IV ANXIETY; Start 07/20/17 at 16:00 Nitroglycerin 1 tab 1 tab Q5M PRN SL ANGINA; Start 07/20/17 at 16:00 Ciprofloxacin/ Dextrose 200 ml @ 200 mls/hr Q24H IVPB Last administered on 19:48; Admin Dose 200 MLS/HR; Start 07/20/17 at 20:00 Metronidazole (Flagyl 500 Mg (Pmx)) 100 ml @ 100 mls/hr Q6 IVPB Last administered on 07/24/17 05:15; Admin Dose 100 MLS/HR; Start 07/20/17 at 19:00 Diagnostic Test (Pha) (Accu-Chek) 1 ea 02 XX Last administered on 07/21/17 02: 47; Admin Dose 1 EA; Start 07/21/17 at 02:00 Insulin Aspart (Novolog Insulin Pen) NOVOLOG *MILD* ALGORI... Q4 SC Last administered on 07/21/17 05:46; Admin Dose 1 UNIT; Start 07/20/17 at 21:00 Miscellaneous Information 1 ea NOTE XX ; Start 07/20/17 at 18:00 Glucose (Glutose) 15 gm Q15M PRN PO DECREASED GLUCOSE; Start 07/20/17 at 18:00 Glucose (Glutose) 22.5 gm Q15M PRN PO DECREASED GLUCOSE; Start 07/20/17 at 18: 00 Dextrose (D50w Syringe) 25 ml Q15M PRN IV DECREASED GLUCOSE Last administered on 07/23/17 06:13; Admin Dose 25 ML; Start 07/20/17 at 18:00 Dextrose (D50w Syringe) 50 ml Q15M PRN IV DECREASED GLUCOSE; Start 07/20/17 at 18:00 Glucagon (Glucagen) 1 mg Q15M PRN IM DECREASED GLUCOSE; Start 07/20/17 at 18:00 Glucose 15 gm 15 gm Q15M PRN BUCCAL DECREASED GLUCOSE; Start 07/20/17 at 18:00 Phenylephrine HCl 40 mg/Dextrose 500 ml @ 75 mls/hr TITRATE IV Last administered on 07/21/17 05:47; Admin Dose 45 MLS/HR; Start 07/21/17 at 00:00 Norepinephrine 32 mg/Dextrose 500 ml @ 0.93 mls/hr TITRATE PRN IV BLOOD PRESSURE SUPPORT Last administered on 07/24/17 05:21; Admin Dose 0.93 MLS/HR; Start 07/21/17 at 02:30 Sodium Bicarbonate 150 meq/Sodium Chloride 1,150 ml @ 60 mls/hr [id number] IV Last administered on 07/24/17 00:33; Admin Dose 60 MLS/HR; Start 07/21/17 at 08:00 Propofol (Diprivan) 100 ml @ 2.712 mls/ hr Q12H IV Last administered on 00:33; Admin Dose 18.984 MLS/HR; Start 07/21/17 at 10:00 Albuterol (Ventolin Hfa) 4 puff PRN INH ; Start 07/23/17 at 16:36 Ipratropium [place] (Atrovent Hfa) 4 puff PRN INH ; Start 07/23/17 at 16:38 Potassium Chloride (Klor-Con 20) 40 meq ONCE ONCE PO ; Start 07/24/17 at 20:00 ; Stop 07/24/17 at 20:01 Potassium Chloride (Klor-Con 20) 40 meq ONCE ONCE PO ; Start 07/24/17 at 12:00 ; Stop 07/24/17 at 12:01 GEORGE PURCELL Jul 24, 2017 09:27
--- NOTE | 2017-07-24 09:52 | CONS ---
Date/Time of Note Date/Time of Note DATE: 07/24/17 TIME: 09:42 Assessment/Plan Assessment/Plan Chief Complaint/Hosp Course 41 y/o with # Metformin assosciated Lactic acidosis # Oliguric Acute renal failure ben underling CKD with acidosis, renal failure 2 to ATN # Hypokalemia likely secondary to diarrhoea now # Hyperphosphatemia secondary to reduced renal clearence # Cardiac pulmonary arrest # Respiratory failure s/p intubation # Elevated LFT # Anemia # Anasarca # Pulmonary HTN on ECHO Recs - HD today , pt will likely need daily HD for now for clearence - Recommend dc Bicarb gtt - Recheck K after HD today and will replete based on labs( used 4 k bath) - Avoid Fleet enemas in pt with renal failure due to hyperphos - dc MOM - Follow serial lactate - Add Phoslo Problems: Consultation Date/Type/Reason Admit Date/Time Jul 20, 2017 at 15:54 Initial Consult Date Type of Consultation: Renal 24 HR Interval Summary Free Text/Dictation No UOP Diarrhoea + K 2.8 Had HD today Lactate was 6.5 Exam/Review of Systems Vital Signs Vitals Vital Signs Date Time Temp Pulse Resp B/P Pulse Ox O2 Delivery O2 Flow Rate FiO2 07/24/17 06:30 59 27 121/65 96 07/24/17 06:00 Mechanical Ventilator 07/24/17 05:50 30 07/24/17 04:45 98.3 07/21/17 01:19 15.0 Intake and Output 07/23/17 07/23/17 07/24/17 15:00 23:00 07:00 Intake Total 724.02 ml 863.72 ml 914.81 ml Output Total 0 ml 0 ml 0 ml Balance 724.02 ml 863.72 ml 914.81 ml Exam Exam HEENT: Neck supple; no JVD; no LAD; + ET tube CVS: RRR, S1 and S2 CHEST: decreased breath sounds at bases ABD: Soft, NT, + BS EXT: No c/c; LE PVD Anasarca, swollen labia Rt juani Results Result Diagram: 07/24/17 0400 07/24/17 0400 Results 24 hrs Laboratory Tests Test 07/23/17 13:10 07/23/17 13:13 07/23/17 17:39 07/23/17 18:39 Bedside Glucose 83 97 Lactic Acid Level 9.7 *H 8.7 *H Test 07/23/17 22:14 07/24/17 00:16 07/24/17 00:36 07/24/17 04:00 Bedside Glucose 113 122 Lactic Acid Level 6.5 *H 6.6 *H White Blood Count 11.7 H Red Blood Count 2.47 L Hemoglobin 7.5 L Hematocrit 21.9 L Mean Corpuscular Volume 88.7 Mean Corpuscular Hemoglobin 30.4 Mean Corpuscular Hemoglobin Concent 34.2 Red Cell Distribution Width 16.9 H Platelet Count 84 L Mean Platelet Volume 12.0 H Neutrophils % Lymphocytes % Monocytes % Eosinophils % Basophils % Nucleated Red Blood Cells % 8.0 H Neutrophils # Lymphocytes # Monocytes # Eosinophils # Basophils # Nucleated Red Blood Cells # Sodium Level 145 H Potassium Level 2.8 *L Chloride Level 102 Carbon Dioxide Level 23 Anion Gap 23 H Blood Urea Nitrogen 58 H Creatinine 6.16 H Glucose Level 115 # Calcium Level 7.0 L Total Bilirubin 2.6 H Direct Bilirubin 2.30 #H Indirect Bilirubin 0.3 Aspartate Amino Transf (AST/SGOT) 1395 H Alanine Aminotransferase (ALT/SGPT) 913 H Alkaline Phosphatase 322 H Total Protein 4.5 L Albumin 2.3 L Test 07/24/17 05:25 Bedside Glucose 123 Medications Medications Current Medications Ondansetron HCl (Zofran Inj) 4 mg Q6H PRN IV NAUSEA AND/OR VOMITING; Start 07/20/17 at 12:00 Acetaminophen (Tylenol Liquid) 650 mg Q6H PRN PO PAIN LEVEL 1-3 OR FEVER; Start 07/20/17 at 12:00 Acetaminophen (Tylenol Tab) 650 mg Q6H PRN PO PAIN LEVEL 1-3 OR FEVER; Start 07/20/17 at 12:00 Docusate Sodium (Colace) 100 mg Q12H PRN PO CONSTIPATION; Start 07/20/17 at 12: 00 Bisacodyl (Dulcolax) 5 mg DAILY PRN PO CONSTIPATION; Start 07/20/17 at 12:00 Acetaminophen/ Hydrocodone Bitart ([place] (5/325)) 1 tab Q6H PRN PO MODERATE PAIN LEVEL 4-6; Start 07/20/17 at 16:00 Morphine Sulfate (morphine) 2 mg Q4H PRN IV SEVERE PAIN LEVEL 7-10; Start 07/20 at 16:00 Famotidine (Pepcid Iv) 20 mg Q48H IV Last administered on 07/22/17 22:05; Admin Dose 20 MG; Start 07/20/17 at 21:00 Lorazepam (Ativan) 0.5 mg Q6H PRN IV ANXIETY; Start 07/20/17 at 16:00 Nitroglycerin 1 tab 1 tab Q5M PRN SL ANGINA; Start 07/20/17 at 16:00 Ciprofloxacin/ Dextrose 200 ml @ 200 mls/hr Q24H IVPB Last administered on 19:48; Admin Dose 200 MLS/HR; Start 07/20/17 at 20:00 Metronidazole (Flagyl 500 Mg (Pmx)) 100 ml @ 100 mls/hr Q6 IVPB Last administered on 07/24/17 05:15; Admin Dose 100 MLS/HR; Start 07/20/17 at 19:00 Diagnostic Test (Pha) (Accu-Chek) 1 ea 02 XX Last administered on 07/21/17 02: 47; Admin Dose 1 EA; Start 07/21/17 at 02:00 Insulin Aspart (Novolog Insulin Pen) NOVOLOG *MILD* ALGORI... Q4 SC Last administered on 07/21/17 05:46; Admin Dose 1 UNIT; Start 07/20/17 at 21:00 Miscellaneous Information 1 ea NOTE XX ; Start 07/20/17 at 18:00 Glucose (Glutose) 15 gm Q15M PRN PO DECREASED GLUCOSE; Start 07/20/17 at 18:00 Glucose (Glutose) 22.5 gm Q15M PRN PO DECREASED GLUCOSE; Start 07/20/17 at 18: 00 Dextrose (D50w Syringe) 25 ml Q15M PRN IV DECREASED GLUCOSE Last administered on 07/23/17 06:13; Admin Dose 25 ML; Start 07/20/17 at 18:00 Dextrose (D50w Syringe) 50 ml Q15M PRN IV DECREASED GLUCOSE; Start 07/20/17 at 18:00 Glucagon (Glucagen) 1 mg Q15M PRN IM DECREASED GLUCOSE; Start 07/20/17 at 18:00 Glucose 15 gm 15 gm Q15M PRN BUCCAL DECREASED GLUCOSE; Start 07/20/17 at 18:00 Phenylephrine HCl 40 mg/Dextrose 500 ml @ 75 mls/hr TITRATE IV Last administered on 07/21/17 05:47; Admin Dose 45 MLS/HR; Start 07/21/17 at 00:00 Norepinephrine 32 mg/Dextrose 500 ml @ 0.93 mls/hr TITRATE PRN IV BLOOD PRESSURE SUPPORT Last administered on 07/24/17 05:21; Admin Dose 0.93 MLS/HR; Start 07/21/17 at 02:30 Sodium Bicarbonate 150 meq/Sodium Chloride 1,150 ml @ 60 mls/hr [id number] IV Last administered on 07/24/17 00:33; Admin Dose 60 MLS/HR; Start 07/21/17 at 08:00 Propofol (Diprivan) 100 ml @ 2.712 mls/ hr Q12H IV Last administered on 00:33; Admin Dose 18.984 MLS/HR; Start 07/21/17 at 10:00 Albuterol (Ventolin Hfa) 4 puff PRN INH ; Start 07/23/17 at 16:36 Ipratropium [place] (Atrovent Hfa) 4 puff PRN INH ; Start 07/23/17 at 16:38 Potassium Chloride (Klor-Con 20) 40 meq ONCE ONCE PO ; Start 07/24/17 at 20:00 ; Stop 07/24/17 at 20:01 Potassium Chloride (Klor-Con 20) 40 meq ONCE ONCE PO ; Start 07/24/17 at 12:00 ; Stop 07/24/17 at 12:01 LIBRADO VANEGAS MD Jul 24, 2017 09:52
--- NOTE | 2017-07-24 10:16 | CONS ---
Date/Time of Note Date/Time of Note DATE: 07/24/17 TIME: 10:15 Consult Date/Type/Reason Admit Date/Time Jul 20, 2017 at 15:54 Initial Consult Date Type of Consultation: Pulmonary Subjective Patient stable this morning. Off sedation remains somnolent. No vasopressor support. Objective Vital Signs Date Time Temp Pulse Resp B/P Pulse Ox O2 Delivery O2 Flow Rate FiO2 07/24/17 08:00 63 07/24/17 06:30 27 121/65 96 07/24/17 06:00 Mechanical Ventilator 07/24/17 05:50 30 07/24/17 04:45 98.3 07/21/17 01:19 15.0 Intake and Output 07/23/17 07/23/17 07/24/17 15:00 23:00 07:00 Intake Total 724.02 ml 863.72 ml 914.81 ml Output Total 0 ml 0 ml 0 ml Balance 724.02 ml 863.72 ml 914.81 ml Exam GENERAL: Moderately obese young lady intubated on mechanical ventilation appears comfortable VITAL SIGNS: per chart NECK: Supple. No JVD or lymphadenopathy. CARDIAC EXAM: S1, S2. No added sounds or murmurs. CHEST: clear bilaterally, No added sounds, rales or wheezes ABDOMEN: Soft, nontender. No guarding or rebound. EXTREMITIES: No cyanosis, clubbing or edema. NEUROLOGIC: Generalized weakness. No focal deficits. Results/Medications Result Diagram: 07/24/17 0400 07/24/17 0400 Results 24 hrs Laboratory Tests Test 07/23/17 13:10 07/23/17 13:13 07/23/17 17:39 07/23/17 18:39 Bedside Glucose 83 97 Lactic Acid Level 9.7 *H 8.7 *H Test 07/23/17 22:14 07/24/17 00:16 07/24/17 00:36 07/24/17 04:00 Bedside Glucose 113 122 Lactic Acid Level 6.5 *H 6.6 *H White Blood Count 11.7 H Red Blood Count 2.47 L Hemoglobin 7.5 L Hematocrit 21.9 L Mean Corpuscular Volume 88.7 Mean Corpuscular Hemoglobin 30.4 Mean Corpuscular Hemoglobin Concent 34.2 Red Cell Distribution Width 16.9 H Platelet Count 84 L Mean Platelet Volume 12.0 H Neutrophils % Lymphocytes % Monocytes % Eosinophils % Basophils % Nucleated Red Blood Cells % 8.0 H Neutrophils # Lymphocytes # Monocytes # Eosinophils # Basophils # Nucleated Red Blood Cells # Sodium Level 145 H Potassium Level 2.8 *L Chloride Level 102 Carbon Dioxide Level 23 Anion Gap 23 H Blood Urea Nitrogen 58 H Creatinine 6.16 H Glucose Level 115 # Calcium Level 7.0 L Phosphorus Level 4.8 Total Bilirubin 2.6 H Direct Bilirubin 2.30 #H Indirect Bilirubin 0.3 Aspartate Amino Transf (AST/SGOT) 1395 H Alanine Aminotransferase (ALT/SGPT) 913 H Alkaline Phosphatase 322 H Total Protein 4.5 L Albumin 2.3 L Test 07/24/17 05:25 Bedside Glucose 123 Medications Current Medications Ondansetron HCl (Zofran Inj) 4 mg Q6H PRN IV NAUSEA AND/OR VOMITING; Start 07/20/17 at 12:00 Acetaminophen (Tylenol Liquid) 650 mg Q6H PRN PO PAIN LEVEL 1-3 OR FEVER; Start 07/20/17 at 12:00 Acetaminophen (Tylenol Tab) 650 mg Q6H PRN PO PAIN LEVEL 1-3 OR FEVER; Start 07/20/17 at 12:00 Docusate Sodium (Colace) 100 mg Q12H PRN PO CONSTIPATION; Start 07/20/17 at 12: 00 Bisacodyl (Dulcolax) 5 mg DAILY PRN PO CONSTIPATION; Start 07/20/17 at 12:00 Acetaminophen/ Hydrocodone Bitart ([place] (5/325)) 1 tab Q6H PRN PO MODERATE PAIN LEVEL 4-6; Start 07/20/17 at 16:00 Morphine Sulfate (morphine) 2 mg Q4H PRN IV SEVERE PAIN LEVEL 7-10; Start 07/20 at 16:00 Famotidine (Pepcid Iv) 20 mg Q48H IV Last administered on 07/22/17 22:05; Admin Dose 20 MG; Start 07/20/17 at 21:00 Lorazepam (Ativan) 0.5 mg Q6H PRN IV ANXIETY; Start 07/20/17 at 16:00 Nitroglycerin 1 tab 1 tab Q5M PRN SL ANGINA; Start 07/20/17 at 16:00 Ciprofloxacin/ Dextrose 200 ml @ 200 mls/hr Q24H IVPB Last administered on 19:48; Admin Dose 200 MLS/HR; Start 07/20/17 at 20:00 Metronidazole (Flagyl 500 Mg (Pmx)) 100 ml @ 100 mls/hr Q6 IVPB Last administered on 07/24/17 05:15; Admin Dose 100 MLS/HR; Start 07/20/17 at 19:00 Diagnostic Test (Pha) (Accu-Chek) 1 ea 02 XX Last administered on 07/21/17 02: 47; Admin Dose 1 EA; Start 07/21/17 at 02:00 Insulin Aspart (Novolog Insulin Pen) NOVOLOG *MILD* ALGORI... Q4 SC Last administered on 07/21/17 05:46; Admin Dose 1 UNIT; Start 07/20/17 at 21:00 Miscellaneous Information 1 ea NOTE XX ; Start 07/20/17 at 18:00 Glucose (Glutose) 15 gm Q15M PRN PO DECREASED GLUCOSE; Start 07/20/17 at 18:00 Glucose (Glutose) 22.5 gm Q15M PRN PO DECREASED GLUCOSE; Start 07/20/17 at 18: 00 Dextrose (D50w Syringe) 25 ml Q15M PRN IV DECREASED GLUCOSE Last administered on 07/23/17 06:13; Admin Dose 25 ML; Start 07/20/17 at 18:00 Dextrose (D50w Syringe) 50 ml Q15M PRN IV DECREASED GLUCOSE; Start 07/20/17 at 18:00 Glucagon (Glucagen) 1 mg Q15M PRN IM DECREASED GLUCOSE; Start 07/20/17 at 18:00 Glucose 15 gm 15 gm Q15M PRN BUCCAL DECREASED GLUCOSE; Start 07/20/17 at 18:00 Phenylephrine HCl 40 mg/Dextrose 500 ml @ 75 mls/hr TITRATE IV Last administered on 07/21/17 05:47; Admin Dose 45 MLS/HR; Start 07/21/17 at 00:00 Norepinephrine 32 mg/Dextrose 500 ml @ 0.93 mls/hr TITRATE PRN IV BLOOD PRESSURE SUPPORT Last administered on 07/24/17 05:21; Admin Dose 0.93 MLS/HR; Start 07/21/17 at 02:30 Propofol (Diprivan) 100 ml @ 2.712 mls/ hr Q12H IV Last administered on 12/11/ 17at 00:33; Admin Dose 18.984 MLS/HR; Start 07/21/17 at 10:00 Albuterol (Ventolin Hfa) 4 puff PRN INH ; Start 07/23/17 at 16:36 Ipratropium [place] (Atrovent Hfa) 4 puff PRN INH ; Start 07/23/17 at 16:38 Potassium Chloride (Klor-Con 20) 40 meq ONCE ONCE PO ; Start 07/24/17 at 20:00 ; Stop 07/24/17 at 20:01 Potassium Chloride (Klor-Con 20) 40 meq ONCE ONCE PO ; Start 07/24/17 at 12:00 ; Stop 07/24/17 at 12:01 Assessment/Plan Chief Complaint/Hosp Course IMP: 1. Metformin-associated Lactic Acidosis (ROBBIE) --type B lactic acidosis 2. Acute renal failure 3. Respiratory failure secondary to above 4, PVD RECS: 1.,CPAP trial and more alert. 2. Continue HD Correct electrolytes 3. Follow lactate clearance 4. Sedation holiday daily Stable for transfer to [facility]. Problems: PHILIPPE BARAJAS MD, [facility] Jul 24, 2017 10:16
[2017-07-24 10:33] LABS: ANISOCYTOSIS 2+ (0-0); BASOPHILS % (M) 2 % (0-2); EOSINOPHILS % (M) 14 % (0-7); ERYTHROBLAST% (NRBC) (M) 11 % (0-0); GIANT THROMBO% (M) 1 % (0-0); MICROCYTOSIS 1+ (0-0); PLATELET ESTIMATE SIG DECREASED; POIKILOCYTOSIS 3+ (0-0); POLYCHROMASIA 3+ (0-0)
--- NOTE | 2017-07-24 11:42 | DS ---
Date/Time of Note Date/Time of Note DATE: 07/24/17 TIME: 11:40 Discharge Summary Admission/Discharge Info Admit Date/Time Jul 20, 2017 at 15:54 Discharge Date/Time Discharge Diagnosis PEA cardiac arrest of unclear etiology, acute renal failure, metabolic acidosis and lactic acidosis of unclear etiology (?possibly from metformin?), circulatory shock of unclear etiology, hypoxic respiratory failure of unclear etiology, shock liver, normocytic anemia of unclear etiology, pulmonary hypertension Consults pulmonology, nephrology Procedures 12.7 admission CXR IMPRESSION: Global cardiomegaly with mild interstitial pulmonary edema. Superimposed infection to be determined clinically. 12.7 LE dopplers: no DVT 12.7 gallbladder US IMPRESSION: 1. Small amount of gallbladder sludge within the gallbladder neck corresponds to the CT findings with minimal gallbladder wall thickening. 2. Small amount of perihepatic ascites. 3. Atrophic echogenic right kidney likely relates to medical renal disease 12.7 NCCT AP IMPRESSION: 1. Bilateral lower lobe air space disease, concerning for pneumonia in the appropriate clinical setting. Cardiomegaly. 2. Mild intra-abdominal ascites and generalized anasarca. 3. Thickening of the kessler of the distal stomach and duodenum, concerning for focal enteritis. There is also mild thickening of the kessler of the right colon, concerning for focal colitis. Recommend follow-up CT scan with IV and oral contrast. 4. Enlarged uterus, containing exophytic calcified masses, with the largest measuring 5.7 x 5.1 cm. Findings are likely consistent with consistent with a leiomyomatous uterus. 5. Gallbladder, containing hyperdense material, which may represent sludge or stones. Recommend correlation with ultrasound. 7. No definitive focal fluid collection or free air noted at this time. 12.7 TTE Conclusions 1. The left ventricle is normal in size and systolic function. 2. Estimated left ventricular ejection fraction of 60-65%. 3. Moderate concentric left ventricular hypertrophy. Grade 1 diastolic dysfunction. 4. Pulmonary hypertension with estimated RVSP of 64 mmHg. 12.7 Right femoral hemodialysis catheter placement by vascular surgery 12.9 EEG INTERPRETATION: This is an abnormal EEG due to presence of mild generalized background slowing without any epileptiform activity. Please correlate these findings with the patient's clinical picture. 12.11 CXR IMPRESSION: 1. Low lung volumes with compressive changes. No significant interval change. 2. Tubes and lines, as described above. 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 She was at work earlier today and had shortness of breath and EMS was called and the patient was brought to the ER. Most of the information is obtained from the ER documentation, in speaking with the ER staff and also speaking with the mom as the patient is presently intubated. History received was that when the patient arrived to the ER, she had denied chest pain. No drugs or alcohol use, but was complaining of shortness of breath, worse when laying flat. Full review of systems cannot be obtained at this time and that was the extent that could be obtained. Apparently, in the ER doctor became concerned about her SOB, and initiated BiPAP. Eventually the patient went into respiratory distress and had to be intubated. The patient was taken for CT abdomen and pelvis and when she came back from the CT scan, she went into cardiac arrest at 1342. She was revived at 1347 and shortly afterwards at 1414 went into SVT, which converted after getting adenosine in the ER. Afterwards, her labs came back and it was determined that the patient had very elevated BUN and creatinine levels as well as elevated lactic acid and needed emergent dialysis, so the vascular surgeon came and put a right femoral hemodialysis catheter and the patient underwent dialysis. She was also found with very elevated lactic acid levels of [address] abdomen pelvis results did show significant findings including possible pneumonia, ascites, and anasarca, enteritis and colitis, leiomyomatous uterus, and gallbladder sludge. The patient also had ABG performed that showed pH of 6.66, pCO2 of 16, PaO2 of 271, and a bicarb of 1.8 and she did receive calcium gluconate, sodium bicarb, and D50, as her potassium is also found to be 6.0. The patient is presently intubated on pressor support, although able to blink her eyes and surprisingly will follow basic commands at this point. PAST MEDICAL HISTORY: As stated above. Hospital Course Of note, I was only involved in the care of this patient on the date of her transfer from [facility] to [place]. Per documentation, pt presented 12.7 with c/o SOB. As part of the workup in the ER pt was sent for a CT scan. While in/around the CT scanner, pt went into PEA arrest. Code blue initiated and pt with ROSC within 5 minutes. Pt was intubated during the code. Code labs notable for profound metabolic acidosis with lactic acidosis and profound ALEXIA with Cr 14. Following ROSC while pt was in the ER awaiting ICU bed, she received urgent HD for her metabolic acidosis. After HD pt became hypotensive to SBP 40s, EKG with wide complex tachycardia. Pt treated with multiple doses of calcium and sodium bicarb. Required atropine x 1 for bradycardia, reverted to narrow complex tachycardia. 12.8-12.10 pt remained in the ICU. 12.8 labs notable for hgb 6.6 from 7s the day before. Pt was transfused 2 units pRBCs with appropriate hgb rise. FOBT obtained and was positive. As the etiology of her anemia was unknown, anticoagulation was held. Of note, the etiology of her PEA arrest is unclear. Her pulmonary hypertension raises concern for possible PE. LE dopplers did not show DVT. A VQ scan was ordered but could not be obtained prior to transfer for logistical reasons. WOULD ATTEMPT TO OBTAIN CT PE PROTOCOL OR VQ SCAN AT OSH. ALSO WOULD CONSIDER GI EVAL AND POSSIBLE HEPARIN DRIP UPON TRANSFER. Imaging on admission with possible colitis/enteritis thus patient was started on empiric abx with cipro/flagyll. Regarding pt's renal function, she was dialyzed daily in the ICU. Pressors were slightly weaned though pt still on norepi at time of transfer. Home Meds Unable to Obtain Active Prescriptions or Reported Meds Follow-up Plan Pt is being transferred to [place] per the request of her insurance company Primary Care Provider Not On Staff Doctor Time spent on discharge: > 30 minutes Pending Labs Laboratory Tests Test 07/23/17 13:10 07/23/17 13:13 07/23/17 17:39 07/23/17 18:39 Bedside Glucose 83mg/dL (70-220) 97mg/dL (70-220) Lactic Acid Level 9.7mmol/L (0.5-2.0) 8.7mmol/L (0.5-2.0) Test 07/23/17 22:14 07/24/17 00:16 07/24/17 00:36 07/24/17 04:00 Bedside Glucose 113mg/dL (70-220) 122mg/dL (70-220) Lactic Acid Level 6.5mmol/L (0.5-2.0) 6.6mmol/L (0.5-2.0) White Blood Count 11.710^3/ul (4.8-10.8) Red Blood Count 2.4710^6/ul (4.20-5.40) Hemoglobin 7.5g/dl (12.0-16.0) Hematocrit 21.9% (37.0-47.0) Mean Corpuscular Volume 88.7fl (82.0-101.0) Mean Corpuscular Hemoglobin 30.4pg (29.0-33.0) Mean Corpuscular Hemoglobin Concent 34.2g/dl (32.0-37.0) Red Cell Distribution Width 16.9% (11.5-14.5) Platelet Count 8410^3/UL (140-415) Mean Platelet Volume 12.0fl (7.4-10.4) Neutrophils % % (39.0-77.0) Segmented Neutrophils % (Manual) 73% (39-77) Band Neutrophils % (Manual) 8% (0-4) Lymphocytes % % (15.0-51.0) Lymphocytes % (Manual) 3% (15-51) Monocytes % % (0.0-11.0) Eosinophils % % (0.0-7.0) Eosinophils % (Manual) 14% (0-7) Basophils % % (0.0-2.0) Basophils % (Manual) 2% (0-2) Nucleated Red Blood Cells % 11% (0-0) Neutrophils # 10^3/ul (1.6-7.5) Neutrophils # (Manual) 8.610^3/ul (1.7-7.5) Band Neutrophils # 0.910^3/ul (0.0-0.6) Absolute Lymphocytes (Manual) 0.310^3/ul (0.8-2.9) Lymphocytes # 10^3/ul (0.8-2.9) Monocytes # 10^3/ul (0.3-0.9) Eosinophils # 10^3/ul (0.0-0.5) Basophils # 10^3/ul (0.0-0.1) Basophils # (Manual) 0.210^3/ul (0.0-0.0) Nucleated Red Blood Cells # 10^3/ul (0.0-0.0) Platelet Estimate SIG DECREASED Giant Platelets 1% (0-0) Polychromasia 3+ (0-0) Poikilocytosis 3+ (0-0) Anisocytosis 2+ (0-0) Microcytosis 1+ (0-0) Sodium Level 145mmol/L (135-144) Potassium Level 2.8mmol/L (3.5-5.1) Chloride Level 102mmol/L (97-110) Carbon Dioxide Level 23mmol/L (21-31) Anion Gap 23 (8-16) Blood Urea Nitrogen 58mg/dl (7-20) Creatinine 6.16mg/dl (0.44-1.00) Glucose Level 115mg/dl (70-220) Calcium Level 7.0mg/dl (8.4-10.2) Phosphorus Level 4.8mg/dl (2.5-4.9) Total Bilirubin 2.6mg/dl (0.2-1.3) Direct Bilirubin 2.30mg/dl (0.00-0.20) Indirect Bilirubin 0.3mg/dl (0-1.1) Aspartate Amino Transf (AST/SGOT) 1395IU/L (15-46) Alanine Aminotransferase (ALT/SGPT) 913IU/L (13-69) Alkaline Phosphatase 322IU/L (42-121) Total Protein 4.5g/dl (6.1-8.1) Albumin 2.3g/dl (3.3-4.9) Test 07/24/17 05:25 07/24/17 10:57 Bedside Glucose 123mg/dL (70-220) Potassium Level 3.2mmol/L (3.5-5.1) MIKE HAMMONDS MD Jul 24, 2017 11:42
[2017-07-24] MEDS ORDERED: POTASSIUM CHLORIDE (SR) 20 MEQ TAB PO ONE ×2 (12:00→20:00)
[2017-07-24] MEDS ORDERED: ENOXAPARIN 100 MG/ML SYG SC SCH (12:00)
[2017-07-24] MEDS: CALCIUM ACETATE 667 MG CAP NGT SCH ×2 (12:59→17:42)
[2017-07-24] MEDS ORDERED: POTASSIUM CHLORIDE 20 MEQ POWDER FOR ORAL SOLN PO ONE (13:00)
[2017-07-24] MEDS: FAMOTIDINE 20 MG INJ IV SCH (21:09)
[2017-07-24] MEDS: CIPROFLOXACIN 400MG/D5W 200 ML IVPB SCH (21:09)
== END 2017-07-25 | disposition short-term general hospital (02) | DRG 917 ==
LOC: E/R 09:35 → ICU 15:54
PROVIDERS: ADMIT Hospitalist; ATTEND Hospitalist
PROC: 5A1955Z Respiratory Ventilation, Greater than 96 Consecutive Hours (ICD-10-PCS; principal; 2017-07-20)
PROC: 0BH17EZ Insertion of Endotracheal Airway into Trachea, Via Natural or Artificial Opening (ICD-10-PCS; 2017-07-20)
PROC: 5A1D70Z Performance of Urinary Filtration, Intermittent, Less than 6 Hours Per Day (ICD-10-PCS; 2017-07-20)
PROC: 02HV33Z Insertion of Infusion Device into Superior Vena Cava, Percutaneous Approach (ICD-10-PCS; 2017-07-20)
DX: T38.3X1A Poisoning by insulin and oral hypoglycemic [antidiabetic] drugs, accidental (unintentional), initial encounter (principal); J96.01 Acute respiratory failure with hypoxia; K72.00 Acute and subacute hepatic failure without coma; R57.8 Other shock; N17.0 Acute kidney failure with tubular necrosis; R18.8 Other ascites; E87.1 Hypo-osmolality and hyponatremia; J18.9 Pneumonia, unspecified organism; I46.9 Cardiac arrest, cause unspecified; I12.9 Hypertensive chronic kidney disease with stage 1 through stage 4 chronic kidney disease, or unspecified chronic kidney disease; E11.22 Type 2 diabetes mellitus with diabetic chronic kidney disease; N18.9 Chronic kidney disease, unspecified; K52.9 Noninfective gastroenteritis and colitis, unspecified; D25.9 Leiomyoma of uterus, unspecified; I87.8 Other specified disorders of veins; E87.5 Hyperkalemia; E66.9 Obesity, unspecified; Z68.36 Body mass index [BMI] 36.0-36.9, adult; D64.9 Anemia, unspecified; D69.6 Thrombocytopenia, unspecified
CPT/HCPCS: 31500; 36415; 36430; 36600; 71010; 74176; 76705; 76937; 80048; 80053; 80061; 80076; 80306; 80307; 82140; 82270; 82550; 82553; 82803; 82962; 83036; 83540; 83605; 83690; 83880; 83970; 84100; 84132; 84439; 84443; 84484; 84703; 85025; 85610; 85730; 86704; 86709; 86803; 86850; 86900; 86901; 86920; 87040; 87045; 87075; 87081; 87177; 87340; 90935; 92950; 93005; 93306; 93970; 94002; 94003; 94640; 94660; 94664; 94770; 95819; 96374; 96375; J0153; J0171; J0461; J0610; J0692; J0744; J1815; J1940; J2370; J2543; J3370; J7030; J7040; J7060; J7070; P9016; P9047